=== PATIENT | male | born 1960 | race Caucasian/White ===

== ENCOUNTER 2021-08-19 12:13 | Emergency (ER) | payer OTHER ==
[~2021-08-19] VITALS: Ht 188 cm; Wt 108.9 kg
[2021-08-19 13:48] LABS: BASOPHILS ABSOLUTE AUTO 0.04 K/mm3 (0.00-0.23); BASOPHILS PERCENT AUTO 1 % (0-2); EOSINOPHILS ABSOLUTE AUTO 0.16 K/mm3 (0.00-0.68); EOSINOPHILS PERCENT AUTO 4 % (0-6); Hematocrit 42.9 % (37.0-53.0); Hemoglobin 14.9 g/dL (13.5-17.5); IMMATURE GRAN ABSOLUTE AUTO 0.01 K/mm3 (0.00-0.10); IMMATURE GRAN PERCENT AUTO 0 % (0-1); LYMPHOCYTES ABSOLUTE AUTO 1.43 K/mm3 (0.84-5.20); LYMPHOCYTES PERCENT AUTO 34 % (21-46); MONOCYTES ABSOLUTE AUTO 0.45 K/mm3 (0.16-1.47); MONOCYTES PERCENT AUTO 11 % (4-13); Mean Corpuscular HGB 32.8 pg (26.0-34.0); Mean Corpuscular HGB Conc 34.7 g/dL (31.5-36.5); Mean Corpuscular Volume 95 fL (80-100); Mean Platelet Volume 9.7 fL (9.1-12.4); NEUTROPHILS ABSOLUTE AUTO 2.14 K/mm3 (1.96-9.15); NEUTROPHILS PERCENT AUTO 51 % (41-73); Platelet Count 216 K/mm3 (150-400); RDW Standard Deviation 45.8 fL (35.1-46.3); Red Blood Cell Count 4.54 M/mm3 (4.30-5.90); White Blood Cell Count 4.23 K/mm3 (4.00-11.30)
[2021-08-19 14:09] LABS: Alanine Aminotransfer (ALT/SGP 38 U/L (12-78); Albumin/Globulin Ratio 0.6 (0.8-1.8); Alk Phos 77 U/L (50-136); Anion Gap 5 mmol/L (6-16); Aspartate Aminotrans (AST/SGOT 62 U/L (12-37); Bilirubin, Total 1.6 mg/dL (0.1-1.0); Blood Urea Nitrogen 8 mg/dL (8-24); CO2, Blood 25 mmol/L (21-32); Calcium, Blood 9.3 mg/dL (8.5-10.1); Chloride, Blood 109 mmol/L (98-108); Creatinine, Blood 0.67 mg/dL (0.60-1.20); Globulin, Blood 4.8 g/dL (2.2-4.0); Glomerular Filtration Rate >60 (60-); Glucose, Blood 107 mg/dL (70-99); Magnesium, Blood 2.1 mg/dL (1.6-2.4); Potassium, Blood 3.5 mmol/L (3.5-5.5); Sodium, Blood 139 mmol/L (136-145); Total Protein, Blood 7.8 g/dL (6.4-8.2)
[2021-08-19] MEDS ORDERED: XARELTO15 M1 PO (15:45)
== END 2021-08-19 15:58 | disposition home or self-care (01) ==
LOC: ER 12:13
PROVIDERS: Physician Assistant
DX: I82.4Z1 Acute embolism and thrombosis of unspecified deep veins of right distal lower extremity (principal); F17.200 Nicotine dependence, unspecified, uncomplicated
CPT/HCPCS: 80053; 83690; 83735; 83880; 85025; 93970; 99284-25

== ENCOUNTER 2021-09-18 17:03 | Emergency (ER) | payer OTHER ==
[~2021-09-18] VITALS: Ht 188 cm; Wt 108.9 kg
[~2021-09-18 17:03] MED LIST: ASPI81CH PO; XARELTO15 M1 PO; XARELTO20 MG PO
[2021-09-18 17:50] LABS: BASOPHILS ABSOLUTE AUTO 0.02 K/mm3 (0.00-0.23); BASOPHILS PERCENT AUTO 0 % (0-2); EOSINOPHILS PERCENT AUTO 1 % (0-6); Hematocrit 42.8 % (37.0-53.0); Hemoglobin 14.7 g/dL (13.5-17.5); IMMATURE GRAN ABSOLUTE AUTO 0.03 K/mm3 (0.00-0.10); IMMATURE GRAN PERCENT AUTO 0 % (0-1); LYMPHOCYTES ABSOLUTE AUTO 0.99 K/mm3 (0.84-5.20); LYMPHOCYTES PERCENT AUTO 12 % (21-46); MONOCYTES PERCENT AUTO 6 % (4-13); Mean Corpuscular HGB 32.3 pg (26.0-34.0); Mean Corpuscular HGB Conc 34.3 g/dL (31.5-36.5); Mean Corpuscular Volume 94 fL (80-100); Mean Platelet Volume 10.6 fL (9.1-12.4); NEUTROPHILS ABSOLUTE AUTO 6.57 K/mm3 (1.96-9.15); NEUTROPHILS PERCENT AUTO 80 % (41-73); Platelet Count 186 K/mm3 (150-400); RDW Coefficient Variation 13.3 % (11.7-14.2); RDW Standard Deviation 46.4 fL (35.1-46.3); Red Blood Cell Count 4.55 M/mm3 (4.30-5.90); White Blood Cell Count 8.21 K/mm3 (4.00-11.30)
[2021-09-18 18:02] LABS: Alanine Aminotransfer (ALT/SGP 36 U/L (12-78); Albumin, Blood 3.2 g/dL (3.4-5.0); Albumin/Globulin Ratio 0.7 (0.8-1.8); Alk Phos 141 U/L (50-136); Anion Gap 8 mmol/L (6-16); Aspartate Aminotrans (AST/SGOT 38 U/L (12-37); Bilirubin, Total 0.7 mg/dL (0.1-1.0); Blood Urea Nitrogen 15 mg/dL (8-24); Bun/Creatinine Ratio 24.2 (12.0-20.0); CO2, Blood 21 mmol/L (21-32); Calcium, Blood 9.5 mg/dL (8.5-10.1); Chloride, Blood 111 mmol/L (98-108); Creatinine, Blood 0.62 mg/dL (0.60-1.20); Globulin, Blood 4.5 g/dL (2.2-4.0); Glomerular Filtration Rate >60 (60-); Glucose, Blood 123 mg/dL (70-99); Potassium, Blood 3.5 mmol/L (3.5-5.5); Sodium, Blood 140 mmol/L (136-145); Total Protein, Blood 7.7 g/dL (6.4-8.2)
[2021-09-18 18:43] LABS: Ethanol (Alcohol), Blood, Med <3 mg/dL; Magnesium, Blood 1.9 mg/dL (1.6-2.4); Troponin I <0.015 ng/mL (0.000-0.040)
== END 2021-09-18 20:46 | disposition home or self-care (01) ==
LOC: ER 17:03
PROVIDERS: Emergency Medicine; Student in an Organized Health Care Education/Training Program
DX: K52.9 Noninfective gastroenteritis and colitis, unspecified (principal); Z88.8 Allergy status to other drugs, medicaments and biological substances; Z79.82 Long term (current) use of aspirin; Z79.899 Other long term (current) drug therapy; F17.200 Nicotine dependence, unspecified, uncomplicated
CPT/HCPCS: 74176; 80053; 83605; 83690; 83735; 84145; 84484; 85025; 93005; 93010; 96374; 96375; 99285-25; A9270; G0480; J1170; J2405; J7030

== ENCOUNTER 2023-03-12 20:34 | Inpatient (IN) | payer MEDICARE, OTHER ==
[~2023-03-12] VITALS: Ht 188 cm; Wt 146.7 kg
[2023-03-12] MEDS ORDERED: AMLO10 PO (20:58)
[2023-03-12] MEDS ORDERED: HYDCHL25 PO (20:59)
[2023-03-12 21:02] LABS: BASOPHILS ABSOLUTE AUTO 0.05 K/mm3 (0.00-0.23); BASOPHILS PERCENT AUTO 1 % (0-2); EOSINOPHILS ABSOLUTE AUTO 0.16 K/mm3 (0.00-0.68); EOSINOPHILS PERCENT AUTO 2 % (0-6); Hematocrit 44.3 % (37.0-53.0); Hemoglobin 15.8 g/dL (13.5-17.5); IMMATURE GRAN ABSOLUTE AUTO 0.02 K/mm3 (0.00-0.10); IMMATURE GRAN PERCENT AUTO 0 % (0-1); LYMPHOCYTES ABSOLUTE AUTO 3.25 K/mm3 (0.84-5.20); LYMPHOCYTES PERCENT AUTO 33 % (21-46); MONOCYTES ABSOLUTE AUTO 1.17 K/mm3 (0.16-1.47); MONOCYTES PERCENT AUTO 12 % (4-13); Mean Corpuscular HGB 31.4 pg (26.0-34.0); Mean Corpuscular HGB Conc 35.7 g/dL (31.5-36.5); Mean Corpuscular Volume 88 fL (80-100); Mean Platelet Volume 10.2 fL (9.1-12.4); NEUTROPHILS ABSOLUTE AUTO 5.08 K/mm3 (1.96-9.15); NEUTROPHILS PERCENT AUTO 52 % (41-73); Platelet Count 105 K/mm3 (150-400); RDW Coefficient Variation 13.7 % (11.7-14.2); RDW Standard Deviation 43.9 fL (35.1-46.3); Red Blood Cell Count 5.03 M/mm3 (4.30-5.90); White Blood Cell Count 9.73 K/mm3 (4.00-11.30)
[2023-03-12 21:14] LABS: Albumin, Blood 3.5 g/dL (3.4-5.0); Albumin/Globulin Ratio 0.9 (0.8-1.8); Bilirubin, Total 2.4 mg/dL (0.1-1.0); Bun/Creatinine Ratio 9.8 (12.0-20.0); Calcium, Blood 8.9 mg/dL (8.5-10.1); Creatinine, Blood 0.72 mg/dL (0.60-1.20); Potassium, Blood 3.4 mmol/L (3.5-5.5); Total Protein, Blood 7.5 g/dL (6.4-8.2)
[2023-03-13] VITALS (18 sets, daily range): BP systolic 106–168; BP diastolic 69–118
[2023-03-13 00:54] LABS: International Normalized Ratio 1.31; Prothrombin Time Results 13.5 Sec (9.7-11.5)
[2023-03-13 05:07] LABS: BASOPHILS ABSOLUTE AUTO 0.04 K/mm3 (0.00-0.23); BASOPHILS PERCENT AUTO 1 % (0-2); EOSINOPHILS ABSOLUTE AUTO 0.24 K/mm3 (0.00-0.68); EOSINOPHILS PERCENT AUTO 4 % (0-6); Hematocrit 43.6 % (37.0-53.0); Hemoglobin 15.3 g/dL (13.5-17.5); IMMATURE GRAN ABSOLUTE AUTO 0.01 K/mm3 (0.00-0.10); IMMATURE GRAN PERCENT AUTO 0 % (0-1); LYMPHOCYTES ABSOLUTE AUTO 2.61 K/mm3 (0.84-5.20); LYMPHOCYTES PERCENT AUTO 39 % (21-46); MONOCYTES ABSOLUTE AUTO 0.66 K/mm3 (0.16-1.47); MONOCYTES PERCENT AUTO 10 % (4-13); Mean Corpuscular HGB 31.1 pg (26.0-34.0); Mean Corpuscular HGB Conc 35.1 g/dL (31.5-36.5); Mean Corpuscular Volume 89 fL (80-100); Mean Platelet Volume 11.1 fL (9.1-12.4); NEUTROPHILS ABSOLUTE AUTO 3.15 K/mm3 (1.96-9.15); NEUTROPHILS PERCENT AUTO 47 % (41-73); Platelet Count 89 K/mm3 (150-400); RDW Coefficient Variation 13.8 % (11.7-14.2); RDW Standard Deviation 44.9 fL (35.1-46.3); Red Blood Cell Count 4.92 M/mm3 (4.30-5.90); White Blood Cell Count 6.71 K/mm3 (4.00-11.30)
[2023-03-13 05:37] LABS: Albumin, Blood 3.2 g/dL (3.4-5.0); Albumin/Globulin Ratio 0.8 (0.8-1.8); Bilirubin, Total 2.4 mg/dL (0.1-1.0); Bun/Creatinine Ratio 8.4 (12.0-20.0); Calcium, Blood 8.9 mg/dL (8.5-10.1); Creatinine, Blood 0.72 mg/dL (0.60-1.20); Globulin, Blood 3.8 g/dL (2.2-4.0); Potassium, Blood 3.4 mmol/L (3.5-5.5)
--- NOTE | 2023-03-13 07:02 | NUR ---
Received report from Garry Naylor. Patient awake in bed. He is alert and oriented and is able to communicate his needs. He is on 3L O2 via NC and sats >90% and has non prod. cough. He has 18ga PowerGlide to JOHNNA and is infusing Heparin at 18 u nits/kg/min, 18ga RENETTA infusing cardizem at 10 mg/hr, and 18ga LAC infuisng potassium at 10 meq/hr. He has RLE swelling r/t + DVT. He is SBA with pivots. Patient denies any current needs.
--- NOTE | 2023-03-13 07:15 | NUR ---
END OF SIHFT: PATIENT IS STILL ALERT AND ORIENTED, PATIENT IS NOW HAVING PE RELATED PAIN. WAS ABLE TO SLEEP AFTER ADMIN OF EMAR PAIN MED, CARDIZEM TITRATION FROM 15 TO 10 EARLY THIS AM. PATIENT IS PLEASAANT COOPERATIVE WITH CARE. HYPERTENSIVE AT TIMES, ABD IS VERY DISTENDED. ALL CONCERNS HAVE BEEN RELAYED TO NIGHT HOSPITALIST, CONTINUE CARE AND MONITOR NO NEW ORDERS. DAY RN AWARE AND WILL FOLLOW UP WITH HOSPITALIST.
--- NOTE | 2023-03-13 11:30 | NUR ---
Patient has been resting between 4 Dr visits and ECHO being done. He remains on 3L O2 via NC and sats >90%. He denies any SOB. Patient is independent with positioning in bed and calls appropriately, call light within reach. Urial at bedside calls if needs help. Right leg remians swollen. Heparin increased to 19 units/kg/min.
--- NOTE | 2023-03-13 13:55 | NUR ---
Patient arrived from [facility] from cardiac cath technician on tele. Patient is alert and oriented and is able to communicate his needs. getting CBG as probanly did not do during cath. He has TR band site right wrist and has 11cc in band and is WNL, no hematoma or oozing. Will call to see if patient can eat.
--- NOTE | 2023-03-13 15:56 | NUR ---
No significant changes with patient. He has been doing a pretty good job resting. heparin at 19 units/kg/min, Diltiazem at 5 mg/min as HR 50-60's A-fib. NS at 50 ml/hr. He remains on 3L O2 via NC and sats >90%. He states still not feeling well and breathing not right but sats around 98%. Positions self in bed, remains NPO.
--- NOTE | 2023-03-13 17:03 | NUR ---
Dr Vasquez came to consult patient and about 30 minutes later came to take to scope room. he has been sleeping up to then. He transferred to [facility] slowly hoding on to items while pivoting, very tremulous. he went on 5L O2 via NC and sats >90%. Infusing Heparin at 19 units/kg/min, Diltiazem at 5mg/hr and NS at 50 ml/hr, went on tele
--- NOTE | 2023-03-13 17:09 | NUR ---
03/13/23 1701 Tayler Olivares History, Chart, Medications and Allergies reviewed before start of procedure. MONITOR INTACT WITH CONTINUOUS PULSE OXIMETRY, CONTINUOUS END TITAL CO2, AND INTERMITTENT BLOOD PRESSURE. 3-LEAD EKG REVIEWED WITH PHYSICIAN PRIOR TO START OF PROCEDURE. O2 VIA N/C INTACT THROUGHOUT SEDATION/PROCEDURE. DR. BOWIE FOR SEDATION, SEE HIS ANESTHESIA RECORD.
[2023-03-14] VITALS (7 sets, daily range): BP systolic 130–170; BP diastolic 72–119
[2023-03-14 03:28] LABS: BASOPHILS ABSOLUTE AUTO 0.03 K/mm3 (0.00-0.23); BASOPHILS PERCENT AUTO 1 % (0-2); EOSINOPHILS ABSOLUTE AUTO 0.28 K/mm3 (0.00-0.68); EOSINOPHILS PERCENT AUTO 5 % (0-6); Hematocrit 42.4 % (37.0-53.0); Hemoglobin 14.6 g/dL (13.5-17.5); IMMATURE GRAN PERCENT AUTO 0 % (0-1); LYMPHOCYTES ABSOLUTE AUTO 2.01 K/mm3 (0.84-5.20); LYMPHOCYTES PERCENT AUTO 33 % (21-46); MONOCYTES ABSOLUTE AUTO 0.52 K/mm3 (0.16-1.47); MONOCYTES PERCENT AUTO 8 % (4-13); Mean Corpuscular HGB 31.5 pg (26.0-34.0); Mean Corpuscular HGB Conc 34.4 g/dL (31.5-36.5); Mean Corpuscular Volume 92 fL (80-100); Mean Platelet Volume 11.1 fL (9.1-12.4); NEUTROPHILS ABSOLUTE AUTO 3.35 K/mm3 (1.96-9.15); NEUTROPHILS PERCENT AUTO 54 % (41-73); Platelet Count 82 K/mm3 (150-400); RDW Coefficient Variation 14.4 % (11.7-14.2); Red Blood Cell Count 4.63 M/mm3 (4.30-5.90); White Blood Cell Count 6.19 K/mm3 (4.00-11.30)
[2023-03-14 04:07] LABS: Albumin, Blood 2.9 g/dL (3.4-5.0); Albumin/Globulin Ratio 0.8 (0.8-1.8); Bilirubin, Total 2.1 mg/dL (0.1-1.0); Bun/Creatinine Ratio 10.9 (12.0-20.0); Calcium, Blood 8.5 mg/dL (8.5-10.1); Creatinine, Blood 0.74 mg/dL (0.60-1.20); Globulin, Blood 3.7 g/dL (2.2-4.0); Magnesium, Blood 1.9 mg/dL (1.6-2.4); Phosphorus, Blood 2.3 mg/dL (2.5-4.9); Potassium, Blood 3.8 mmol/L (3.5-5.5); Total Protein, Blood 6.6 g/dL (6.4-8.2)
--- NOTE | 2023-03-14 06:27 | NUR ---
SHIFT SUMMARY: NO ACUTE CHANGE THIS SHIFT, VSS THROUGHOUT THE NIGHT. HEPARIN GTT @ 19 UNITS/KG, CARDIZEM GTT ON SB FOR THE MAJORITY OF THE NIGHT. PT REMAINS AFIB ON MONITOR WITH HR 80-90'S. PT ON NC @ 5LPM WITH SPO2 94<; NO SOB OR CHEST PAIN AT THIS TIME. R. LEG MAINTAINS COLOR, TEMP AND PULSE. PT HAS HAD SOME PAIN WITH THE RIGHT LEG BUT MEDICATED PER EMAR AND PAIN MANAGEMENT MET. PT ABLE TO SLEEP FOR A WHILE AFTER PAIN MANAGED. BED LOWERED, CALL LIGHT IN REACH, WILL CONTINUE TO MONITOR UNTIL ONCOMING RN ARRIVES.
--- NOTE | 2023-03-14 11:36 | NUR ---
RN/SHIFT SUMMARY MORNING SHIFT REPORT RECIEVED. PATIENT GREETED AND ASSESSED WITH MEDICATION PASS. THE PATIENT HAS BEEN IN GOOD GENERAL MENTATION THROUGHT THE MORNING WITH NO COMPLICATIONS. HE ALERT ON 4L NC AND READY FOR TRANSFER. REPORT GIVEN TO RN PRIOR TO MEDICAL FLOOR TRANSFER. ALL BELONGINGS ARE TRANSPORTED ALONG WITH HEP DRIP AND INFUSION SET.
--- NOTE | 2023-03-14 18:21 | NUR ---
SHIFT SUMMARY: PT A&O X4. PT VERY PLEASANT AND COOPERATIVE WITH CARE. HEPARIN DRIP RUNNING UNTIL 2100 WHEN HE WILL SWITCH TO PO XARELTO. PT HAS PG IN RIGHT UPPER ARM FLUSHING WELL. PT INDEPENDENT IN ROOM. PT USING URINAL FOR VOIDS AND URINATING ORANGE URINE. PT ON TELE RUNNING AFIB PVC. NO C/O PAIN OR N/V. CALL LIGHT IN REACH. BED IN LOWEST POSITION. WILL CONTINUE TO MONITOR.
--- NOTE | 2023-03-14 21:26 | NUR ---
HEPARIN DRIP DISCONTINUED, PLACED ON XARELTO. SEE MAR FOR DETAILS. TOLERATING MEDS WITHOUT NOTED DISTRESS. RESTING QUIETLY AT THIS TIME
[2023-03-15 03:55] VITALS: BP 140/106
--- NOTE | 2023-03-15 06:48 | NUR ---
TELE NOTE. SENIOR SOFTWARE SYSTEMS ENGINEER CALLED TO REPORT INTERMITTENT EPISODES OF A FIB AND SR SINCE 0400 AM. PT REMAINS ASYMPTOMATIC. NO NOTED DISTRESS. SENIOR SOFTWARE SYSTEMS ENGINEER REPORTS THAT THEY WILL CALL BACK IF CONTINUES. WILL HAVE AM NURSE FOLLOW UP. CALL LIGHT IN REACH
[2023-03-15 07:25] LABS: BASOPHILS ABSOLUTE AUTO 0.02 K/mm3 (0.00-0.23); BASOPHILS PERCENT AUTO 0 % (0-2); EOSINOPHILS ABSOLUTE AUTO 0.32 K/mm3 (0.00-0.68); EOSINOPHILS PERCENT AUTO 5 % (0-6); Hematocrit 43.2 % (37.0-53.0); Hemoglobin 14.8 g/dL (13.5-17.5); IMMATURE GRAN ABSOLUTE AUTO 0.01 K/mm3 (0.00-0.10); IMMATURE GRAN PERCENT AUTO 0 % (0-1); LYMPHOCYTES ABSOLUTE AUTO 2.12 K/mm3 (0.84-5.20); LYMPHOCYTES PERCENT AUTO 34 % (21-46); MONOCYTES PERCENT AUTO 11 % (4-13); Mean Corpuscular HGB 31.2 pg (26.0-34.0); Mean Corpuscular HGB Conc 34.3 g/dL (31.5-36.5); Mean Corpuscular Volume 91 fL (80-100); Mean Platelet Volume 10.8 fL (9.1-12.4); NEUTROPHILS ABSOLUTE AUTO 3.11 K/mm3 (1.96-9.15); NEUTROPHILS PERCENT AUTO 50 % (41-73); Platelet Count 94 K/mm3 (150-400); RDW Coefficient Variation 13.8 % (11.7-14.2); RDW Standard Deviation 46.6 fL (35.1-46.3); Red Blood Cell Count 4.74 M/mm3 (4.30-5.90); White Blood Cell Count 6.28 K/mm3 (4.00-11.30)
[2023-03-15 07:39] VITALS: BP 133/88
[2023-03-15 07:40] LABS: Albumin, Blood 2.8 g/dL (3.4-5.0); Albumin/Globulin Ratio 0.8 (0.8-1.8); Bilirubin, Total 1.5 mg/dL (0.1-1.0); Calcium, Blood 8.9 mg/dL (8.5-10.1); Creatinine, Blood 0.69 mg/dL (0.60-1.20); Globulin, Blood 3.7 g/dL (2.2-4.0); Magnesium, Blood 1.9 mg/dL (1.6-2.4); Phosphorus, Blood 3.1 mg/dL (2.5-4.9); Potassium, Blood 3.9 mmol/L (3.5-5.5); Total Protein, Blood 6.5 g/dL (6.4-8.2)
[2023-03-15 12:24] VITALS: BP 121/89
[2023-03-15] MEDS ORDERED: DILT120 PO (15:09)
[2023-03-15] MEDS ORDERED: Inderal 20 mg T20 MG PO (15:10)
[2023-03-15] MEDS ORDERED: OMEP20ER PO (15:10)
[2023-03-15] MEDS ORDERED: XARELTO20 MG PO (15:16)
--- NOTE | 2023-03-15 19:43 | NUR ---
PT DC'D APPROX 1530 WITH DC INSTRUCTIONS- STAFF ESCORT OUT TO [place], HOSP PAY, FOR RIDE HOME.
== END 2023-03-15 17:10 | disposition home or self-care (01) | DRG 299 ==
LOC: ER 20:34 → PCU 20:35 → ER 20:35 → PCU 03-13 01:48 → MEDS 03-14 11:31 → ENPENDDIS 03-15 13:46 → MEDS 03-15 17:10
PROVIDERS: Emergency Medicine; Family Medicine; Internal Medicine Gastroenterology; ADMIT Internal Medicine
PROC: 0DJ08ZZ Inspection of Upper Intestinal Tract, Via Natural or Artificial Opening Endoscopic (ICD-10-PCS; principal; 2023-03-13 17:15)
DX: I82.431 Acute embolism and thrombosis of right popliteal vein (principal); I26.99 Other pulmonary embolism without acute cor pulmonale; I85.10 Secondary esophageal varices without bleeding; Z68.41 Body mass index [BMI] 40.0-44.9, adult; K74.60 Unspecified cirrhosis of liver; Z91.148 Patient's other noncompliance with medication regimen for other reason; K26.9 Duodenal ulcer, unspecified as acute or chronic, without hemorrhage or perforation; K76.0 Fatty (change of) liver, not elsewhere classified; I86.4 Gastric varices; E87.6 Hypokalemia; D69.6 Thrombocytopenia, unspecified; E66.9 Obesity, unspecified; I10 Essential (primary) hypertension; E83.39 Other disorders of phosphorus metabolism; F10.10 Alcohol abuse, uncomplicated; I48.91 Unspecified atrial fibrillation; F17.210 Nicotine dependence, cigarettes, uncomplicated; Z88.8 Allergy status to other drugs, medicaments and biological substances; Z79.01 Long term (current) use of anticoagulants; Z79.82 Long term (current) use of aspirin; Z79.899 Other long term (current) drug therapy
CPT/HCPCS: 36415; 71045; 71260; 80053; 82947; 83735; 83880; 84100; 85025; 85610; 85730; 93005; 93010; 93306; 93971; 94761; 96361; 96365-59; 96375-59; 96376; 96376-59; 99285-25; A9270; C1751; G0378; J1644; J2704; J3010; J3480; J7030; J7050; J7120; Q9967

== ENCOUNTER 2023-04-08 18:13 | Emergency (ER) | payer MEDICARE ==
[~2023-04-08] VITALS: Ht 188 cm; Wt 136.1 kg
[~2023-04-08 18:13] MED LIST changes: +AMLO10 PO; +DILT120 PO; +HYDCHL25 PO; +Inderal 20 mg T20 MG PO; +OMEP20ER PO
[2023-04-08 18:55] LABS: BASOPHILS ABSOLUTE AUTO 0.05 K/mm3 (0.00-0.23); BASOPHILS PERCENT AUTO 1 % (0-2); EOSINOPHILS ABSOLUTE AUTO 0.39 K/mm3 (0.00-0.68); EOSINOPHILS PERCENT AUTO 5 % (0-6); Hematocrit 42.2 % (37.0-53.0); Hemoglobin 14.7 g/dL (13.5-17.5); IMMATURE GRAN ABSOLUTE AUTO 0.01 K/mm3 (0.00-0.10); IMMATURE GRAN PERCENT AUTO 0 % (0-1); LYMPHOCYTES ABSOLUTE AUTO 3.43 K/mm3 (0.84-5.20); LYMPHOCYTES PERCENT AUTO 47 % (21-46); MONOCYTES ABSOLUTE AUTO 0.75 K/mm3 (0.16-1.47); MONOCYTES PERCENT AUTO 10 % (4-13); Mean Corpuscular HGB 31.4 pg (26.0-34.0); Mean Corpuscular HGB Conc 34.8 g/dL (31.5-36.5); Mean Corpuscular Volume 90 fL (80-100); Mean Platelet Volume 9.2 fL (9.1-12.4); NEUTROPHILS ABSOLUTE AUTO 2.62 K/mm3 (1.96-9.15); NEUTROPHILS PERCENT AUTO 36 % (41-73); Platelet Count 243 K/mm3 (150-400); RDW Coefficient Variation 13.7 % (11.7-14.2); RDW Standard Deviation 45.6 fL (35.1-46.3); Red Blood Cell Count 4.68 M/mm3 (4.30-5.90); White Blood Cell Count 7.25 K/mm3 (4.00-11.30)
[2023-04-08 19:17] LABS: Albumin, Blood 3.4 g/dL (3.4-5.0); Albumin/Globulin Ratio 0.8 (0.8-1.8); Bilirubin, Total 0.5 mg/dL (0.1-1.0); Calcium, Blood 9.1 mg/dL (8.5-10.1); Creatinine, Blood 0.69 mg/dL (0.60-1.20); Globulin, Blood 4.1 g/dL (2.2-4.0); Total Protein, Blood 7.5 g/dL (6.4-8.2)
[2023-04-08 22:00] VITALS: BP 136/86
== END 2023-04-08 22:12 | disposition home or self-care (01) ==
LOC: ER 18:13
PROVIDERS: Emergency Medicine
DX: I82.411 Acute embolism and thrombosis of right femoral vein (principal); I82.431 Acute embolism and thrombosis of right popliteal vein; I82.441 Acute embolism and thrombosis of right tibial vein; I82.451 Acute embolism and thrombosis of right peroneal vein; Z87.891 Personal history of nicotine dependence; Z88.8 Allergy status to other drugs, medicaments and biological substances; Z79.899 Other long term (current) drug therapy
CPT/HCPCS: 71045; 80053; 83880; 84484; 85025; 93005; 93010; 93971; A9270

== ENCOUNTER 2024-04-14 20:02 | Inpatient (IN) | payer OTHER, MEDICARE ==
[~2024-04-14] VITALS: Ht 190.5 cm; Wt 119.0 kg
[~2024-04-14 20:02] MED LIST changes: +CYCL10 PO; +FURO40 PO; +JARDIANCE10 MG PO; +METO100ER PO; +SILD50TA PO
[2024-04-14] MEDS ORDERED: LORazepam 2 MG/ML 1ML Injection ONE ×2 (20:08→22:41)
[2024-04-14] MEDS ORDERED: LORazepam 2 MG/ML 1ML Injection IV ONE (20:15)
[2024-04-14] MEDS ORDERED: Metoprolol Tartrate 5 ML IV ONE (20:16)
[2024-04-14] MEDS ORDERED: Haloperidol Lactate Inj. 5 MG/ML Injection IM PRN (20:20)
[2024-04-14] MEDS ORDERED: Metoprolol Tartrate 1 MG/ML 5 ML VIAL IV ONE (20:20)
[2024-04-14 20:22] LABS: BASOPHILS ABSOLUTE AUTO 0.05 K/mm3 (0.00-0.23); BASOPHILS PERCENT AUTO 1 % (0-2); EOSINOPHILS ABSOLUTE AUTO 0.18 K/mm3 (0.00-0.68); EOSINOPHILS PERCENT AUTO 3 % (0-6); Hematocrit 43.8 % (37.0-53.0); Hemoglobin 14.8 g/dL (13.5-17.5); IMMATURE GRAN ABSOLUTE AUTO 0.01 K/mm3 (0.00-0.10); IMMATURE GRAN PERCENT AUTO 0 % (0-1); LYMPHOCYTES ABSOLUTE AUTO 3.06 K/mm3 (0.84-5.20); LYMPHOCYTES PERCENT AUTO 46 % (21-46); MONOCYTES ABSOLUTE AUTO 0.75 K/mm3 (0.16-1.47); MONOCYTES PERCENT AUTO 11 % (4-13); Mean Corpuscular HGB 32.9 pg (26.0-34.0); Mean Corpuscular HGB Conc 33.8 g/dL (31.5-36.5); Mean Corpuscular Volume 97 fL (80-100); NEUTROPHILS ABSOLUTE AUTO 2.61 K/mm3 (1.96-9.15); NEUTROPHILS PERCENT AUTO 39 % (41-73); Platelet Count 145 K/mm3 (150-400); RDW Coefficient Variation 15.4 % (11.7-14.2); RDW Standard Deviation 55.9 fL (35.1-46.3); White Blood Cell Count 6.66 K/mm3 (4.00-11.30)
[2024-04-14 20:36] LABS: Prothrombin Time Results 10.7 Sec (9.7-11.5)
[2024-04-14 20:44] LABS: Albumin, Blood 3.6 g/dL (3.4-5.0); Albumin/Globulin Ratio 0.9 (0.8-1.8); Bilirubin, Total 1.1 mg/dL (0.1-1.0); Bun/Creatinine Ratio 8.9 (12.0-20.0); Calcium, Blood 8.3 mg/dL (8.5-10.1); Creatinine, Blood 0.89 mg/dL (0.60-1.20); Globulin, Blood 4.1 g/dL (2.2-4.0); Potassium, Blood 3.8 mmol/L (3.5-5.5); Total Protein, Blood 7.7 g/dL (6.4-8.2)
[2024-04-14] MEDS ORDERED: Digoxin 0.25 MG/ML 2ML Amp IV ONE (22:45)
[2024-04-14] MEDS ORDERED: Acetaminophen 325 MG TABLET PO PRN (23:45)
[2024-04-14] MEDS ORDERED: Ondansetron HCl 2 MG / ML 2ML Vial IV PRN (23:55)
[2024-04-14] MEDS ORDERED: Magnesium Hydroxide Conc 10 ML UDC PO PRN (23:55)
[2024-04-15] VITALS (12 sets, daily range): BP systolic 100–153; BP diastolic 70–134
[2024-04-15] MEDS ORDERED: LORazepam 2 MG/ML 1ML Injection IV PRN ×3 (00:55→12:35)
[2024-04-15] MEDS ORDERED: LORazepam 1 MG Tab PO PRN ×2 (00:55)
--- NOTE | 2024-04-15 01:24 | NUR ---
ARRIVAL/ASSUMPTION OF CARE THIS RN ASSUMED CARE OF PT AT 0048 WHEN PT ARRIVED TO PCU. REPORT FROM MARIN PRITCHARD. PT ARRIVED VIA ER GURNEY. TRANSFERRED VIA SLIDE SHEET. PT MINIMALLY RESPONSIVE D/T AMS. PT MUMBLING WHEN ASKED ORIENTATION QUESTIONS BUT UNABLE TO MAKE OUT COHERENT, CLEAR SENTENCES. PT BRIEFLY OPENED EYES TO VERBAL STIMUL. PUPILS +2 AND EQUAL, NOT RESPONSIVE TO LIGHT OR ACCOMODATION. VS; BP 122/88, AFIB WITH RATE OF 130, TEMP 97.1, RR 20, SPO2 98% ON 5 LPM NC, THIS RN TITRATED TO 3 LPM WITH SPO2 95-97%. PT DOES NOT APPEAR TO BE IN CARDIAC OR RESPIRATORY DISTRESS. PT PROTECTING HIS OWN AIRWAY AT THIS TIME, LOUD SNORING NOTED AT TIMES. LS DIMINISHED T/O. BT PRESENT BUT HYPOACTIVE. PT SATURATED UPON ARRIVAL; BED BATH, LINEN AND GOWN CHANGE. CONDOM CATHETER AND ATTENDS IN PLACE. PT'S SKIN OVERALL INTACT WITH SCATTERED SCABS AND BRUISING T/O. PT WITH SMALL CUT AND BRUISE TO L EYE. PT WITH MODERATELY SIZED ROUND LESION TO UPPER R CHEST - PICTURES IN CHART. PT MADE COMFORTABLE, 1:1 SITTER PRESENT. PT FOUND WITH 2 LIGHTERS IN POCKET, PLACED IN LOCKED DRAWER.
[2024-04-15] MEDS ORDERED: Metoprolol Tartrate 1 MG/ML 5 ML VIAL IV ONE (03:35)
[2024-04-15 03:59] LABS: BASOPHILS ABSOLUTE AUTO 0.04 K/mm3 (0.00-0.23); BASOPHILS PERCENT AUTO 1 % (0-2); EOSINOPHILS ABSOLUTE AUTO 0.11 K/mm3 (0.00-0.68); EOSINOPHILS PERCENT AUTO 2 % (0-6); Hematocrit 41.5 % (37.0-53.0); Hemoglobin 14.2 g/dL (13.5-17.5); IMMATURE GRAN PERCENT AUTO 0 % (0-1); LYMPHOCYTES ABSOLUTE AUTO 1.79 K/mm3 (0.84-5.20); LYMPHOCYTES PERCENT AUTO 36 % (21-46); MONOCYTES ABSOLUTE AUTO 0.56 K/mm3 (0.16-1.47); MONOCYTES PERCENT AUTO 11 % (4-13); Mean Corpuscular HGB 33.1 pg (26.0-34.0); Mean Corpuscular HGB Conc 34.2 g/dL (31.5-36.5); Mean Corpuscular Volume 97 fL (80-100); Mean Platelet Volume 10.1 fL (9.1-12.4); NEUTROPHILS ABSOLUTE AUTO 2.52 K/mm3 (1.96-9.15); NEUTROPHILS PERCENT AUTO 50 % (41-73); Platelet Count 107 K/mm3 (150-400); RDW Coefficient Variation 15.5 % (11.7-14.2); RDW Standard Deviation 55.5 fL (35.1-46.3); Red Blood Cell Count 4.29 M/mm3 (4.30-5.90); White Blood Cell Count 5.02 K/mm3 (4.00-11.30)
[2024-04-15 04:23] LABS: Albumin, Blood 3.3 g/dL (3.4-5.0); Albumin/Globulin Ratio 0.8 (0.8-1.8); Bilirubin, Total 1.2 mg/dL (0.1-1.0); Bun/Creatinine Ratio 10.4 (12.0-20.0); Calcium, Blood 8.3 mg/dL (8.5-10.1); Creatinine, Blood 0.67 mg/dL (0.60-1.20); Globulin, Blood 4.1 g/dL (2.2-4.0); Potassium, Blood 3.9 mmol/L (3.5-5.5); Total Protein, Blood 7.4 g/dL (6.4-8.2)
[2024-04-15] MEDS ORDERED: Digoxin 0.25 MG/ML 2ML Amp IV ONE (04:30)
[2024-04-15] MEDS ORDERED: Digoxin 0.25 MG/ML 2ML Amp IV SCH (04:30)
--- NOTE | 2024-04-15 06:22 | NUR ---
SHIFT SUMMARY PT OBTUNDED, Q4 NEURO CHECKS REMAIN UNCHANGED. PT DID BRIEFLY AWAKEN AROUND 0515; PT WAS RESTLESS, AGITATED AT THIS TIME - CIWA 10. MEDICATION PER MAR GIVEN. VSS; SBP 100 - 120'S, AFIB WITH RATE 80 - 120'S, HR INCREASING TO 140 - 150'S WITH ACTIVITY (MOVING IN BED), AFEBRILE, RR 20'S, ON 3 LPM NC WITH SPO2 94-98%. PT DOES OCCASSIONAL DESAT INTO 80'S WHILE ASLEEP, LOUD SNORING NOTED AT TIMES. LUNG SOUNDS DIMINISHED T/O. CONDOM CATHETER AND ATTENDS IN PLACE. NO BM. PT RECEIVED BED BATH AT ARRIVAL TO PCU. REPOSITIONED Q2 OR PRN. 1:1 SITTER IN ROOM. CALL LIGHT IN REACH, BUT UNABLE TO VERBALIZE NEEDS AT THIS TIME. *WHEN PT STARTED TO WAKE UP, HE WAS ABLE TO STATE NAME, , AND THAT HE WAS AT THE HOSPITAL. PT STATES "HE FELL AT HOME". PT ABLE TO FOLLOW SOME COMMANDS, PT OPENED HIS EYES BRIEFLY AND WAS TRACKING AROUND THE ROOM. PT STATES HIS RIBS "HURT" AND STATES HE DOESN'T FELL WELL. OTHERWISE PT SLEPT T/O. WILL UPDATE ONCOMING RN
--- NOTE | 2024-04-15 07:39 | NUR ---
ASSUMED CARE PT AWAKE AND ALERT. ANSWERING ORIENTATION QUESTIONS APPROPRIATELY. VS STABLE. 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 PT REPORTS HE HAS BEEN FALLING FREQUENTLY AT HOME. PT ORIENTED TO CALL LIGHT AND EDUCATED TO CALL BEFORE GETTING OUT OF BED. HR AFIB 110'S AT THIS TIME, BUT TACHS UP TO 140-150'S BRIEFLY AND THEN COMES BACK DOWN WITHIN MINUTES. PT DENIES ANY PAIN. O2 SATS >90% ON 3L NC. PT REPORTS SOB BEFORE ARRIVAL TO ER THAT HAS IMPROVED. PT IS RESTLESS THIS AM, PULLING AT GOWN AND LINES, BUT IS REDIRECTABLE. PT IS VISIBLY SWEATING AND PROVIDED A FAN. WILL CONTINUE TO MONITOR CLOSELY. 1:1 SITTER AT BEDSIDE FOR SAFETY AND HIGH FALL RISK
[2024-04-15] MEDS ORDERED: Sodium Chloride 0.45% 1,000 ML IV SCH (08:10)
[2024-04-15] MEDS ORDERED: Folic Acid 1 MG in NS 50 ML IV SCH (09:00)
[2024-04-15] MEDS ORDERED: Metoprolol Succinate 50 MG TABCR PO SCH ×2 (09:00→21:00)
[2024-04-15] MEDS ORDERED: Empagliflozin 10 MG TAB PO SCH (09:00)
[2024-04-15] MEDS ORDERED: Enoxaparin 40 MG/0.4 ML SYR SC SCH (09:00)
[2024-04-15] MEDS ORDERED: Docusate Sodium 100 MG Cap PO SCH (09:00)
[2024-04-15] MEDS ORDERED: Thiamine HCl 100 MG in NS 50 ML IV SCH (09:00)
[2024-04-15] MEDS ORDERED: LIDO700A20 TOP (09:50)
--- NOTE | 2024-04-15 10:42 | NUR ---
UPDATE PATIENT RESTLESS AND CONTINUING TO GET OUT OF BED. PT SWEATY AND SENSITIVE TO LIGHT. PT CONTINUALLY PULLING AT LINES WITH FREQUENT REDIRECTION. PT MEDICATED PER EMAR. WILL CONTINUE TO MONITOR CLOSELY. 1:1 SITTER AT BEDSIDE
[2024-04-15] MEDS ORDERED: ChlordiazePOXIDE 25 MG Cap PO PRN (12:35)
[2024-04-15] MEDS ORDERED: Gabapentin 300 MG Cap PO SCH (14:00)
--- NOTE | 2024-04-15 17:10 | NUR ---
SHIFT SUMMARY PT CONTINUES TO BE RESTLESS MOST OF SHIFT. PULLING AT LINES AND O2 TUBING. PT DIFFICULT TO REDIRECT. 1:1 SITTER AT BEDSIDE ALL SHIFT. SEE ETOH WD CHARTING. PT MEDICATED PER EMAR FOR WITHDRAWAL. HR HAS BEEN AFIB 100'S AT REST, BUT UP TO 140'S WITH RESTLESSNESS AT TIMES. O2 SATS HAVE BEEN ABOVE 90% ON 4L NC. PT COMPLAINS OF PAIN IN HIS BACK AT TIMES THAT IS RELIEVED WITH REPOSITIONING. WILL CONTINUE TO MONITOR AND REPORT TO ONCOMING RN
[2024-04-15] MEDS ORDERED: Rivaroxaban 10 MG Tab PO SCH (18:00)
[2024-04-15] MEDS ORDERED: Metoprolol Tartrate 1 MG/ML 5 ML VIAL IV PRN ×2 (20:25→20:40)
[2024-04-15 20:43] LABS: Base Excess Venous -1.6 mmol/L; Bicarbonate Venous 24.2 mmol/L (24.0-30.0); PCO2 Venous 28.3 mmHg (38-42); pH Blood Venous 7.49 (7.34-7.37)
[2024-04-15 21:22] LABS: BASOPHILS ABSOLUTE AUTO 0.04 K/mm3 (0.00-0.23); BASOPHILS PERCENT AUTO 1 % (0-2); EOSINOPHILS ABSOLUTE AUTO 0.09 K/mm3 (0.00-0.68); EOSINOPHILS PERCENT AUTO 2 % (0-6); Hematocrit 42.2 % (37.0-53.0); Hemoglobin 14.5 g/dL (13.5-17.5); IMMATURE GRAN ABSOLUTE AUTO 0.01 K/mm3 (0.00-0.10); IMMATURE GRAN PERCENT AUTO 0 % (0-1); LYMPHOCYTES ABSOLUTE AUTO 1.21 K/mm3 (0.84-5.20); LYMPHOCYTES PERCENT AUTO 20 % (21-46); MONOCYTES ABSOLUTE AUTO 0.67 K/mm3 (0.16-1.47); MONOCYTES PERCENT AUTO 11 % (4-13); Mean Corpuscular HGB Conc 34.4 g/dL (31.5-36.5); Mean Corpuscular Volume 96 fL (80-100); Mean Platelet Volume 10.2 fL (9.1-12.4); NEUTROPHILS ABSOLUTE AUTO 3.95 K/mm3 (1.96-9.15); NEUTROPHILS PERCENT AUTO 66 % (41-73); Platelet Count 112 K/mm3 (150-400); RDW Coefficient Variation 14.8 % (11.7-14.2); RDW Standard Deviation 53.1 fL (35.1-46.3); Red Blood Cell Count 4.39 M/mm3 (4.30-5.90); White Blood Cell Count 5.97 K/mm3 (4.00-11.30)
[2024-04-15 21:44] LABS: Albumin, Blood 3.4 g/dL (3.4-5.0); Anion Gap 15 mmol/L (3-11); Blood Urea Nitrogen 7 mg/dL (8-24); Bun/Creatinine Ratio 10.2 (12.0-20.0); CO2, Blood 21 mmol/L (21-32); Calcium, Blood 8.5 mg/dL (8.5-10.1); Chloride, Blood 110 mmol/L (98-108); Creatinine, Blood 0.69 mg/dL (0.60-1.20); Glomerular Filtration Rate 103 (60-); Glucose, Blood 88 mg/dL (70-99); Phosphorus, Blood 2.1 mg/dL (2.5-4.9); Potassium, Blood 4.1 mmol/L (3.5-5.5); Sodium, Blood 142 mmol/L (136-145)
[2024-04-15] MEDS ORDERED: Haloperidol Lactate Inj. 5 MG/ML Injection IV PRN (22:40)
[2024-04-16] VITALS (85 sets, daily range): BP systolic 64–170; BP diastolic 49–136
[2024-04-16 00:10] LABS: Magnesium, Blood 1.6 mg/dL (1.6-2.4)
[2024-04-16] MEDS ORDERED: Mag Sulfate 1 GM/D5% 100ML 100 ML IV STA (00:39)
[2024-04-16 02:13] LABS: pH Blood Venous 7.48 (7.34-7.37)
[2024-04-16 02:14] LABS: Base Excess Venous -1.5 mmol/L; Bicarbonate Venous 24.1 mmol/L (24.0-30.0); PCO2 Venous 29.7 mmHg (38-42)
--- NOTE | 2024-04-16 02:14 | NUR ---
ASSUMPTION OF CARE/TRANSFER, SUMMARY NOTE THIS RN ASSUMED CARE OF PT AT 1900, REPORT FROM CARMELINA FUNES. PT AGITATED AND RESTLESS AT START OF SHIFT, NOT DIRECTABLE. PT ALERT BUT ORIENTED X 1-2 TO SELF AND PERSON. PT STATES WE ARE IN [place] 1969. PT REORIENTED, UNABLE TO REPEAT INFORMATION BACK WHEN ASKED AGAIN. PT NOT OPENING EYES SPONTANEOUSLY; OPENS EYES BRIEFLY TO PRESSURE AND STERNAL RUB, REPSONSES MUMBLED/SOUNDS. PUPILS +2, VERY SLUGGISH. PT NOT FOLLOWING COMMANDS. VS; SBP 130 - 150, DBP 90 - 100'S, AFIB WITH RATE IN 100 - 130'S AT REST, HR INCREASES TO 180-190'S WITH ACTIVITY, RR 20 - 40, WOB INCREASED, LOUD SNORING NOTED. PT UNABLE TO STATE IF SYMPTOMATIC WITH INCREASED HR, HOWEVER THIS RN NOTES PT IS DIAPHORETIC, PALLOR IN COLOR, RESTLESS, AND SOB. PT ON 3 LPM NC, SPO2 GREATER THAN 94%. CIWA 12-18; MEDICATION PER MAR WITH LITTLE TO NO EFFECT. GUMMED TAPE PRESS OPERATOR CALLED HOSPITALIST; NEW ORDERS FOR IV HALDOL PER EMAR. ADMINISTERED WITH LITTLE EFFECT. PT CONTINUED TO BE AGITATED, RESTLESS, AND ANXIOUS; PULLING AT CORDS, LINES AND IV. 1:1 SITTER IN ROOM. THIS RN IN ROOM MOST OF THE SHIFT. THIS RN CALLED RESIDENT SEVERAL TIMES ABOUT PT CONDITION; NEW LAB ORDERS, MEDICAITON PER MAR (SEE ORDERS). BNP 339, NO NEW ORDERS FOR THIS. PT CONTINUES, HR CONTINUES TO MAINTAIN 130 - 160'S, RR CONTINUED TO INCREASE. THIS RN CALLED HOSPITALIST WHICH CAME TO BEDSIDE TO SEE PT. NEW ORDERS FOR CXR, REPEAT VBG AND TRANSFER TO ICU. PT TRANSFERRED TO ICU ON 3 LPM NC, PT STILL AGITATED, RESTLESS AT THIS AND UNDIRECTABLE ALTHOUGH PT IS PLEASANT, NOT VIOLENT OR AGGRESSIVE. PT BELONGINGS WITH PT. REPORT TO MARIN CINTRON .
--- NOTE | 2024-04-16 02:31 | NUR ---
ASSUMED PT TO ICU 1 AT 0215. PT IS AWAKE BUT THRASHING IN BED, RESTLESS, RESPONDS TO NAME AND ASKS FOR WATER HOWEVER COULD NOT SAY WHERE HE WAS OR WHY. PT DOES SAY HE NEEDS TO PEE. HE URINATED 300CC YELLOW URINE. HE WAS GIVEN LIBRIUM 50MG PO AND SIPPED WATER WITH A STRAW EASILY. PT ALSO WAS GIVEN 4MG OF ATIVAN IV CIWA 22. SITTER AT BEDSIDE AIDING IN CARE. VS. PULSE 125-130 AFIB RVR, BP 164/88 MAP 107, RR 22-30. SPO2 97%. ON 3L NC. MAGNESIUM 1GM GIVEN IV CURRENTLY ON TRANSPORT OVER.
[2024-04-16 02:39] LABS: Albumin, Blood 3.3 g/dL (3.4-5.0); Albumin/Globulin Ratio 0.9 (0.8-1.8); Bilirubin, Total 4.1 mg/dL (0.1-1.0); Calcium, Blood 8.4 mg/dL (8.5-10.1); Creatinine, Blood 0.64 mg/dL (0.60-1.20); Globulin, Blood 3.8 g/dL (2.2-4.0); Potassium, Blood 4.1 mmol/L (3.5-5.5); Total Protein, Blood 7.1 g/dL (6.4-8.2)
[2024-04-16 03:17] LABS: Bilirubin, Direct 1.1 mg/dL (0.0-0.3)
[2024-04-16] MEDS ORDERED: PHENobarbital Sodium 65MG / ML 1ML Vial IV STA (03:42)
[2024-04-16] MEDS ORDERED: propofoL 100 ML IV ONE (03:59)
[2024-04-16] MEDS ORDERED: propofoL 100 ML IV SCH (04:00)
[2024-04-16] MEDS ORDERED: NS 250 ML IV PRN (04:00)
--- NOTE | 2024-04-16 04:01 | NUR ---
INTUBATION OF PATIENT 0400: PULSE 142 AFIB RVR, PRECEDEX AT 1.4MCG/KG/HR. RR 40 PT DIAPHORETIC/ PALE, AGGITATED, RESTLESS, DR WINSTON TO INTUBATE. 0402 ETOMIDATE 30MG AND 0403 EDWARDO. 50MG IV PUSH 0404 BAGGING PT 0404 SAO2 84% PULSE 131 143/122 MAP 132 BAGGING PT 0404 0405 ETT PLACEMENT 8.0 25 AT TEETH, COLOR CHANGE POSITIVE AND GOOD LUNG SOUNDS T/O BILAT. PULSE 141 SAO2 90% WHILE BAGGING PT, BP 141/119 MAP 127 . PROPOFOL GTT STARTED AT 20MCG/KG/MIN. END PROCEDURE AWAITING CHEST X-RAY
[2024-04-16 04:47] LABS: Source, Urine Foley catheter
[2024-04-16 04:52] LABS: Blood, Urine 4+ (Neg); Glucose Qualitative, Urine Neg (Neg); Ketones, Urine 2+ (Neg); Leukocyte Esterase, Urine 3+ (Neg); Nitrite, Urine Pos (Neg); Protein, Urine 3+ (Neg); Urobilinogen, Urine 3+ (Normal); pH, Urine 6.5 (5.0-8.0)
[2024-04-16 05:03] LABS: Appearance, Urine Hazy (Clear); Bilirubin, Urine 1+ (Neg); Color, Urine Amber (P-Yellow)
[2024-04-16 05:04] LABS: Amorphous Mod (0-Heavy); Squamous Epithelial Cells Few /hpf (Few); White Blood Cells, Urine 25-50 /hpf (0-5)
[2024-04-16 05:05] LABS: Bacteria Mod /hpf
--- NOTE | 2024-04-16 05:27 | NUR ---
update: pt went to ct scanner while intubated on propofol at 20mcg and precedex at 1mcg. Pt's pulse down to 90 currently. VS stable bp 110/76 map 88. spo2 95% on vent 40%. pt did have ett pulled back to 24 at teeth s/p x-ray and per dr estrada verbal order to the respitory therapy team. Collins 14 frisian was placed and og was placed also prior to ct scan s/p intubation. Pt restrained bilat upper extrem. while intubated for line safety.
[2024-04-16 05:39] LABS: PO2 Arterial 74.6 mmHg (80-100); pH Blood Arterial 7.43 (7.35-7.45)
--- NOTE | 2024-04-16 06:26 | NUR ---
UPDATES, END OF SHIFT NOTE PT HAD A VERY RESTLESS NIGHT BEFORE INTUBATION. HE WAS INTUBATED AT 0405 WITH AN 8.0 ETT 24 AT TEETH NOW. PT HAS BEEN TO CT TONIGHT WELL. HE GOT AN OG PLACED AND A AGUILAR PLACED. URINE IS NOW ORANGE IN COLOR. UA WAS SENT OFF TO LAB, SEE RESULTS. PT GOT A COUPLE NEW IV'S TONIGHT. HE WAS MOVED FROM PCU TO ICU AT 0200. HE REMAINS INTUBATED AND IN RESTRAINTS BILA UPPER EXTREM. HE HAS BRUISES ALL OVER HIS BODY IN DIFFERENT STAGES OF HEALING NOTED D/T COLORS OF EACH ONE, LEFT FLANK, KNEE'S, ABDOMEN, RED ELBOWS, LEFT EYE BRUISE, SCABS T/O. EVEN ON HIS TOES. PT LIVES WITH A ROOMMATE UNKNOWN ABOUT FAMILY RELATIONS AT THIS TIME. NO ONE WAS CALLED S/P HIS INTUBATION.
[2024-04-16] MEDS ORDERED: Acetaminophen 160MG / 5ML 10.15 UDC PT PRN (07:50)
--- NOTE | 2024-04-16 08:00 | NUR ---
INITIAL ASSESSMENT PATIENT INTUBATED AND SEDATED. PATIENT RESPONDS TO NOXIOUS STIMULI BY WIGGLING FEET. PATIENT ON PRECEDEX AND PROPOFOL. NO SIGNS OF PAIN NOTED. PATIENT ON VENT SETTINGS OF AC 16, TV 500, PEEP 5 AND 40% FIO2. ETT 8.0, 24 AT LIP. LUNGS COARSE THROUGHOUT. PATIENT IN A. FIB, HR 70S TO 80S. SBP 90S TO LOW 100S. ABD MODERATELY DISTENDED, SOFT, NORMOACTIVE BOWEL SOUNDS NOTED. OG TO LIS. DATE OF LAST BM UNKNOWN. AGUILAR DRAINING ORANGE COLORED URINE. SCATTERED BRUISES AND SCABS NOTED T/O BODY. CRUSTED LESION NOTED TO R CHEST. BED LOW. CARE CONTINUES.
[2024-04-16] MEDS ORDERED: CefTRIAXone Sodium 1,000 MG in NS 100 ML IV SCH (09:00)
[2024-04-16] MEDS ORDERED: Furosemide 10 MG / ML 2ML Vial IV SCH (09:00)
[2024-04-16] MEDS ORDERED: Gabapentin 250 MG/5 ML ORAL SYRINGE PT SCH (09:00)
[2024-04-16] MEDS ORDERED: Folic Acid 1 MG TAB PO SCH (09:00)
[2024-04-16] MEDS ORDERED: Multivitamins-Minerals Liquid 15 ML Oral Syringe PT SCH (09:00)
[2024-04-16] MEDS ORDERED: Docusate Sodium 100 MG UDC PT SCH (09:00)
[2024-04-16] MEDS ORDERED: Multivitamins/Minerals 1 Tab PO SCH (09:00)
[2024-04-16] MEDS ORDERED: Thiamine HCl 100 MG Tab PO SCH (09:00)
[2024-04-16] MEDS ORDERED: Digoxin 0.25 MG Tab PO SCH (09:00)
[2024-04-16] MEDS ORDERED: Pantoprazole Sodium 40 MG Injection IV SCH (09:00)
[2024-04-16] MEDS ORDERED: Diazepam 5 MG / ML 2ML SYR IV PRN (10:55)
[2024-04-16] MEDS ORDERED: Enoxaparin 120 MG/0.8 ML SYR SC SCH (11:00)
[2024-04-16] MEDS ORDERED: Ampicillin Sod/Sulbactam Sod 3 GM in NS 100 ML IV SCH (11:30)
[2024-04-16] MEDS ORDERED: Bisacodyl 10 MG Supp PR PRN (11:35)
[2024-04-16] MEDS ORDERED: Insulin Regular 100 UNIT/ML 10ML Vial SC SCH (12:00)
[2024-04-16] MEDS ORDERED: Hydrogen Peroxide 1.5 % Solution MT SCH (12:00)
--- NOTE | 2024-04-16 12:20 | NUR ---
PATIENT AFEBRILE. FIO2 NOW AT 30%. HR 60S TO 70S. SBP 80S TO 90S. NO CHANGES IN NEURO STATUS NOTED. BLOOD SUGAR 103; NO COVERAGE INDICATED. VITAL AF TF STARTED AT GOAL RATE OF 30 MLS/ HOUR WITH 30 ML WATER FLUSH Q4H. NO OTHER ACUTE CHANGES TO NOTE ON AT THIS TIME. NO SIGNS OF PAIN NOTED. CARE CONTINUES.
--- NOTE | 2024-04-16 15:38 | NUR ---
DR. GRACE INFORMED OF SOFT BPS DESPITE LOW SEDATION. INFORMED THAT WHEN SEDATION ON SB PATIENT AGITATED AND COUGHING CONSTANTLY. ORDERS PLACED.
[2024-04-16] MEDS ORDERED: Protein Supplement 30 ML UD PT SCH (16:00)
--- NOTE | 2024-04-16 16:00 | NUR ---
PATIENT AFEBRILE. HR 60S TO 70S. SBP IN THE 90S. FIO2 AT 35%. NO OTHER ACUTE CHANGES TO NOTE ON AT THIS TIME. CARE CONTINUES.
[2024-04-16] MEDS ORDERED: Rocuronium Bromide 10 MG/ML 5ML Injection IV ONE (17:05)
[2024-04-16] MEDS ORDERED: Etomidate 2MG / ML 10ML Vial IV ONE (17:05)
--- NOTE | 2024-04-16 18:23 | NUR ---
SHIFT SUMMARY PATIENT REMAINED INTUBATED AND SEDATED. PATIENT REMAINED RESPONDING TO PAINFUL STIMULI WITH GRIMACING OF FACE AND WIGGLING OF TOES. PATIENT REMAINED ON PRECEDEX AND PROPOFOL. PICC INSERTED THIS SHIFT AND LEVOPHED STARTED TO KEEP MAPS GREATER THAN 65. DR. GRACE INFORMED TO KEEP PATIENT SEDATED FOR THIS SHIFT. PATIENT REMAINED AFEBRILE. PATIENT HAD NO SIGNS OF PAIN THIS SHIFT. PATIENT ON VENT SETTINGS AC 16, TV 500, PEEP 5 AND FIO2 30 TO 40%. PATIENT REMAINED IN A. FIB, HR 60S TO 80S. SBP 60S TO 130S. TF STARTED THIS SHIFT AND IS AT GOAL RATE. NO BM THIS SHIFT. 1500 MLS OF DARK ORANGE COLORED URINE OUT FROM AGUILAR THIS SHIFT. NO CHANGES TO SKIN NOTED. PATIENT REPOSITIONED THROUGHOUT SHIFT. ROCEPHIN CHANGED TO UNASYN THIS SHIFT. BED LOW, CALL LIGHT IN REACH. NO SIGNS OF PAIN NOTED AT THIS TIME. REPORT WILL BE GIVEN TO ASSUMING SPINNING BATH PATROLLER NURSE SHORTLY.
--- NOTE | 2024-04-16 19:00 | NUR ---
ASSUMED CARE OF PATIENT AT 1900. REPORT RECEIVED FROM MARIN COSME. PT INTUBATED AND SEDATED. VENT SETTINGS 16/500/5/35% WITH O2 SATURATION > 92%. LEVOPHED INFUSING AT 2 MCG/MIN, PROPOFOL INFUSING AT 15 MCG/KG/MIN, PRECEDEX INFUSING AT 0.2 MCG/KG/HR. CONTINOUS CARDIAC MONITORING IN PLACE SHOWING AFIB WITH HR IN 60'S. NO ACUTE NEEDS IDENTIFED AT THIS TIME. SEE SHIFT ASSESSMENT FOR FULL DETAILS.
[2024-04-16] MEDS ORDERED: Cetylpyridinium Chloride 1 EA MISC MT SCH (20:00)
[2024-04-16 22:55] LABS: C DIFFICILE DNA NEGATIVE (Negative)
[2024-04-17] VITALS (84 sets, daily range): BP systolic 77–170; BP diastolic 50–128
[2024-04-17 03:36] LABS: Hematocrit 42.8 % (37.0-53.0); Hemoglobin 14.7 g/dL (13.5-17.5); Mean Corpuscular HGB Conc 34.3 g/dL (31.5-36.5); Mean Corpuscular Volume 96 fL (80-100); Mean Platelet Volume 11.5 fL (9.1-12.4); Platelet Count 97 K/mm3 (150-400); RDW Standard Deviation 52.7 fL (35.1-46.3); Red Blood Cell Count 4.45 M/mm3 (4.30-5.90); White Blood Cell Count 5.23 K/mm3 (4.00-11.30)
[2024-04-17 03:57] LABS: Albumin, Blood 2.9 g/dL (3.4-5.0); Albumin/Globulin Ratio 0.7 (0.8-1.8); Bilirubin, Direct 0.8 mg/dL (0.0-0.3); Bilirubin, Indirect 2.1 mg/dL (0.1-0.7); Bilirubin, Total 2.9 mg/dL (0.1-1.0); Calcium, Blood 8.7 mg/dL (8.5-10.1); Creatinine, Blood 0.74 mg/dL (0.60-1.20); Magnesium, Blood 1.9 mg/dL (1.6-2.4); Phosphorus, Blood 1.9 mg/dL (2.5-4.9); Potassium, Blood 3.3 mmol/L (3.5-5.5); Total Protein, Blood 6.9 g/dL (6.4-8.2)
[2024-04-17] MEDS ORDERED: Potassium Phosphate Dibasic 20 MM in Dextrose 5% 500 ML IV ONE (05:15)
--- NOTE | 2024-04-17 05:37 | NUR ---
SHIFT SUMMARY PT REMAINED INTUBATED AND SEDATED T/O ENTIRETY OF SHIFT. WITHDRAWS FROM PAINFUL STIMULI. UNABLE TO FOLLOW ANY COMMANDS OR OPEN EYES TO STIMULI. AFEBRILE. CONTINOUS CARDIAC MONITORING IN PLACE SHOWING AFIB WITH HR IN 60'S-70'S. SBP 70'S-120'S. ATTEMPTED LEVOPHED TITRATION BUT RESUMED AND REMAINS AT 2 MCG/MIN TO MAINTAIN MAP > 65. VENT SETTINGS A/C VC 16/500/5/35%. THICK WHITE SECRETIONS OUT. O2 SATURATIONS > 92%. TF INFUSING AT GOAL RATE. RECTAL TUBE PLACED WITH BROWN WATERY STOOL OUT. C-DIFF NEGATIVE. AGUILAR IN PLACE DRAINING DARK ORANGE/RED URINE TO GRAVITY. UCX PENDING. VARIOUS BRUISING T/O. PHOTOS IN CHART. PICC TO JOHNNA INFUSING LEVOPHED AT 2 MCG/MIN, PROPOFOL AT 15 MCG/KG/MIN, PRECEDEX AT 0.2 MCG/KG/HR. K-PHOS ORDERED PER HOSPITALIST. WILL CONTINUE TO MONITOR AND REPORT TO ONCOMING RN.
--- NOTE | 2024-04-17 07:47 | NUR ---
AM NOTE.... ASSUMED CARE OF PT AT 0700, PT IS INTUBATED AND SEDATED PROPOFOL AT 15MCG/KG/HR. VENT SETTINGS ARE AC/VC: 16/500/5/35% WITH O2 SATS>95%. L/S CLEAR T/O DIM IN THE BASES. HE IS IN AFIB IN THE 70'S BP IS STABLE WITH MAPS>65 ON 2MCG/MIN OF LEVOPHED. NO EDEMA IS NOTED ON THIS ASSESSMENT. BT PRESENT AND HYPERACTIVE, ABD IS SOFT TO PALPATION. TUBE FEEDS ARE RUNNING AT 30MLS/HR WHICH IS GOAL AT THIS TIME. RECTAL TUBE IS PATENT AND DRAINING LIQUID BROWN STOOLS TO GRAVITY. AGUILAR IS PATENT AND DRAINING TERESE URINE TO GRAVITY. WILL CONTINUE TO MONITOR.
[2024-04-17] MEDS ORDERED: Lactobacil 2-S.Thermo-Bifido 1 1 Cap PO SCH (09:00)
[2024-04-17] MEDS ORDERED: Cholecalciferol 1000 Unit Tablet (=25MCG) PT SCH (09:00)
--- NOTE | 2024-04-17 17:58 | NUR ---
SHIFT SUMMARY.... NO ACUTE NEGATIVE CHANGES NOTED THIS SHIFT. PT CONTINUES TO BE INTUBATED AND SEDATED. SEDATION MEDICATIONS ARE CURRENTLY PRECEDEX AT 1.4MCG/KG/HR AND PROPOFOL AT 15MCG/KG. PT HAS NEEDED PRN VALIUM FOR AGITATION/ETOH W/D SYMPTOMS. LEVOPHED HAS BEEN OFF SINCE THIS AM. THE PT'S RECTAL TUBE HAD NO OUTPUT THIS SHIFT, THE RECTAL TUBE WAS D/C'd D/T NO OUTPUT. PT'S VENT SETTINGS CONTINUE TO BE AC/VC: 16/500/5/30% WITH O2 SATS>95%. TUBE FEEDS CONTINUE AT GOAL OF 30MLS/HR WITH H2O FLUSHES OF 30MSL Q4HR. WILL CONTINUE TO MONITOR UNTIL REPORT IS GIVEN TO ONCOMING RN.
[2024-04-17] MEDS ORDERED: Rivaroxaban 10 MG Tab PO SCH (18:00)
--- NOTE | 2024-04-17 21:43 | NUR ---
ASSUMED CARE OF PATIENT AT 1900. REPORT RECEIVED FROM MARIN HANNA. PT INTUBATED AND SEDATED. VENT SETTINGS A/C VC 16/500/5/35%. O2 SATURATIONS > 92%. CONTINOUS CARDIAC MONITORING IN PLACE SHOWING AFIB WITH HR IN 70'S-80'S. PROPFOL INFUSING AT 15 MCG/KG/MIN, PRECEDEX AT 1.4 MCG/KG/HR. NO ACUTE NEEDS IDENTIFIED AT THIS TIME. SEE SHIFT ASSESSMENT FOR FULL DETAILS.
[2024-04-18] VITALS (78 sets, daily range): BP systolic 68–162; BP diastolic 55–145
[2024-04-18 03:56] LABS: BASOPHILS ABSOLUTE AUTO 0.03 K/mm3 (0.00-0.23); BASOPHILS PERCENT AUTO 1 % (0-2); EOSINOPHILS ABSOLUTE AUTO 0.14 K/mm3 (0.00-0.68); EOSINOPHILS PERCENT AUTO 3 % (0-6); Hematocrit 46.5 % (37.0-53.0); Hemoglobin 15.8 g/dL (13.5-17.5); IMMATURE GRAN ABSOLUTE AUTO 0.02 K/mm3 (0.00-0.10); IMMATURE GRAN PERCENT AUTO 0 % (0-1); LYMPHOCYTES ABSOLUTE AUTO 1.68 K/mm3 (0.84-5.20); LYMPHOCYTES PERCENT AUTO 32 % (21-46); MONOCYTES ABSOLUTE AUTO 0.58 K/mm3 (0.16-1.47); MONOCYTES PERCENT AUTO 11 % (4-13); Mean Corpuscular HGB 32.9 pg (26.0-34.0); Mean Corpuscular Volume 97 fL (80-100); Mean Platelet Volume 11.4 fL (9.1-12.4); NEUTROPHILS PERCENT AUTO 53 % (41-73); Platelet Count 103 K/mm3 (150-400); RDW Coefficient Variation 15.2 % (11.7-14.2); RDW Standard Deviation 54.9 fL (35.1-46.3); White Blood Cell Count 5.25 K/mm3 (4.00-11.30)
[2024-04-18 04:16] LABS: Bun/Creatinine Ratio 19.3 (12.0-20.0); Calcium, Blood 8.8 mg/dL (8.5-10.1); Creatinine, Blood 0.88 mg/dL (0.60-1.20); Phosphorus, Blood 3.1 mg/dL (2.5-4.9); Potassium, Blood 3.2 mmol/L (3.5-5.5)
[2024-04-18] MEDS ORDERED: Potassium Chloride 40 MEQ in NS 250 ML IV ONE (05:15)
[2024-04-18] MEDS ORDERED: Lansoprazole 15 MG TAB.RAP.DR PT SCH (06:00)
--- NOTE | 2024-04-18 06:07 | NUR ---
SHIFT SUMMARY PT REMAINED ALERT AND ORIENTED X 4 T/O ENTIRETY OF SHIFT. LOCALIZES PAINFUL STIMULI. AFEBRILE. MEDICATED PER EMAR FOR AGITATION + ETOH WITHDRAWAL WITH GOOD BENEFIT. CONTINOUS CARDIAC MONITORING IN PLACE SHOWING AFIB WITH HR IN 70'S-80'S. VENT SETTINGS A/C VC 16/500/5/35%, SUCTIONING WITH THICK WHITE SECRETIONS OUT. AGUILAR IN PLACE DRAINING CLEAR ORANGE URINE TO GRAVITY. NO BM THIS SHIFT. TF INFUSING AT GOAL RATE. PICC TO JOHNNA INFUSING PROPOFOL AT 15 MCG/KG/MIN, PRECEDEX INFUSING AT 1.4 MCG/KG/HR, UNASYN AND POTASSIUM REPLACEMENT INFUSING. WILL CONTINUE TO MONITOR AND REPORT TO ONCOMING RN.
--- NOTE | 2024-04-18 08:18 | NUR ---
ASSUMED CARE OF PT AT 0700 PT RESTING ON HOSPITAL BED, RESPONSIVE ONLY TO PAIN AT THIS TIME. PT ON VENTILATOR, SETTINGS: AC/VC 16/5/500/35%. ATTATACHED TO GRINDING WHEEL FACER, AFIB RATE OF 80-90S OBSERVED. PT HAS PROPOFOL RUNNING AT 15MCG/KG/MIN, PRECEDEX 1.7MCG/KG/HR. TUBE FEEDING RUNNING AT GOAL RATE OF 30ML/HR. AGUILAR CATH IN PLACE AND DRAINING YELLOW URINE TO GRAVITY. CARE CONTINUES.
--- NOTE | 2024-04-18 09:53 | NUR ---
PT UPDATE.... AT 0945 DR. GRACE AT THE BEDSIDE TO ASSESS THE PT. PER DR. GRACE THE PT'S PROPOFOL WAS STOPPED AND THE PRECEDEX DRIP WAS INCREASED FROM 0.7MCG/KG/HR TO 1.4MCG/KG/HR. DURING THIS TIME THE PT WAS CHANGED FROM AC/VC: 16/500/5/35% TO SP 12/5 AND 35% WITH O2 SATS>95% WILL CONTINUE TO MONITOR.
[2024-04-18] MEDS ORDERED: FentaNYL Citrate 50 MCG/ML 2 ML Injection IV PRN (11:40)
--- NOTE | 2024-04-18 11:42 | NUR ---
SEDATION VACATION PROPOFOL PUT ON SB AND PRECEDEX TITRATED DOWN TO 0.7MCG/KG/HR FOR 1 HOUR. PT RESPIRATORY RATE INCREASED AND HE COUGHING ON VENT. PT VERY DIAPHORETIC. PROVIDER UPDATED AND PT RESTARTED ON PRECEDEX AND PROPOFOL.
--- NOTE | 2024-04-18 14:10 | NUR ---
PT UPDATE PT HAD SEIZURE LIKE ACTIVITY- EYES FLUTTERED OPEN AND CLOSED, EXTREMITIES BECAME VERY RIGID. DR. GRACE TO BEDSIDE. 10 MG VALIUM IV ORDERED AND PROPOFOL RESTARTED ORDERED AT 15MCG/KG/MIN. EPISODE LASTED APPROX 1 MINUTE.
[2024-04-18] MEDS ORDERED: Piperacillin/Tazobactam Sod 4.5 GM in NS 100 ML IV SCH (16:30)
--- NOTE | 2024-04-18 17:18 | NUR ---
END OF SHIFT SUMMARY NO PURPOSEFUL MOVEMENT TODAY. DURING SEDATION VACATIONS PT BECAME TENSE, WAS GRIMACING, AND APPEARED UNCOMFORTABLE. WAS NOT ABLE TO FOLLOW COMMANDS OR OPEN EYES ON COMMAND- NO RESPONSE TO PAINFUL STIUMULI. PUPILS 2 W/ SLUGGISH RESPONSE TO LIGHT. PT HAD EPISODE OF SEIZURE LIKE ACTIVITY THIS AFTERNOON-SEE PREVIOUS NOTE FOR FURTHER DETAILS. PT REMAINS ON VENTILATOR, SETTINGS: AC/VC 16/5/500/35%FIO2. O2 SATS >93%. PT HAD LARGE AMOUNTS OF ORAL SECRETIONS AND THICK, WRAY AND PINK TINGED SPUTUM IN ETT. HR VIA CONTINUOUS MONITOR BECAME ELEVATED DURING SBT TO 120S, WAS OTHERWISE 80-90S AND IRREGULAR. BP WAS LABILE AND LEVOPHED WAS RESTARTED. CURRENTLY RUNNING AT 2MCG/MIN. PROPOFOL INFUSING AT 15MCG/KG/MIN. VANCO AND ZOSYN INFUSING DIRECTED. PT WAS PROFUSELY DIAPHORETIC DURING SHIFT, RECIEVED BED BATH. RECTAL TEMP PROBE PLACED AT THIS TIME- MAX TEMP WAS 102.2. MEDICATED W/ TYLENOL AND TEMP DID NOT RESPOND. FAN AND ICEPACKS APPLIED TO PT. WILL CONTINUE TO MONITOR. NO BM TODAY. AGUILAR CATH REMAINS PATENT AND DRAINING TO GRAVITY. WILL REPORT TO ONCOMING RN WHEN AVAILABLE. CARE CONTINUES.
[2024-04-18] MEDS ORDERED: Vancomycin HCL 2,500 MG in NS 250 ML IV SCH (18:00)
--- NOTE | 2024-04-18 19:00 | NUR ---
ASSUMED CARE ASSUMED CARE OF PATIENT. REMAINS INTUBATED- AC/VC 16/500/5/35%. SEDATED WITH PROPOFOL AT 15MCG/KG/MIN. BILATERAL SOFT WRIST RESTRAINTS IN PLACE TO PREVENT SELF-EXTUBATION. MONITOR SHOWS AFIB, RATE 80s-90s. BP STABLE WITH LEVOPHED AT 2MCG/MIN. TEMP 101.4F PER RECTAL TEMP PROBE. OG WITH VITAL AF 1.2 AT GOAL RATE OF 30MLs/HR. 250ML H20 FLUSH Q6H PER ORDER. AGUILAR PATENT AND DRAINING TO GRAVITY. SEE SHIFT ASSESSMENT FOR FULL ASSESSMENT.
[2024-04-19] VITALS (76 sets, daily range): BP systolic 89–174; BP diastolic 49–136
--- NOTE | 2024-04-19 | NUR ---
LOOSE STOOL INCONTINENT OF LARGE AMOUNT OF LIQUID BROWN STOOL- RECTAL TUBE PLACED AT THIS TIME WITH IMMEDIATE RETURN OF OVER 600MLs STOOL.
--- NOTE | 2024-04-19 00:15 | NUR ---
HEEL BLISTER RIGHT HEEL NOTED TO HAVE MODERATE SIZED FLUID FILLED BLISTER. SITE CLEANED AND PHOTO TAKEN. FOAM DRESSING APPLIED.
[2024-04-19] MEDS ORDERED: Prochlorperazine Edisylate 10 mg Vial IV ONE (03:00)
[2024-04-19] MEDS ORDERED: Prochlorperazine Edisylate 10 mg Vial IV PRN (03:00)
[2024-04-19 04:36] LABS: Hematocrit 45.3 % (37.0-53.0); Hemoglobin 15.5 g/dL (13.5-17.5); Mean Corpuscular HGB 33.8 pg (26.0-34.0); Mean Corpuscular HGB Conc 34.2 g/dL (31.5-36.5); Mean Corpuscular Volume 99 fL (80-100); Mean Platelet Volume 11.1 fL (9.1-12.4); Platelet Count 120 K/mm3 (150-400); RDW Standard Deviation 58.5 fL (35.1-46.3); Red Blood Cell Count 4.59 M/mm3 (4.30-5.90); White Blood Cell Count 7.14 K/mm3 (4.00-11.30)
[2024-04-19 04:50] LABS: Calcium, Blood 9.2 mg/dL (8.5-10.1); Creatinine, Blood 0.89 mg/dL (0.60-1.20); Magnesium, Blood 1.6 mg/dL (1.6-2.4)
--- NOTE | 2024-04-19 05:52 | NUR ---
SHIFT SUMMARY NO ACUTE CHANGES. PT REMAINS INTUBATED- AC/VC 16/500/5/35%. SEDATED WITH PROPOFOL AT 15MCG/KG/MIN. MEDICATED WITH VALIUM 10MG IV X 2 DOSES FOR INCREASED RESP RATE, HEART RATE. NO SEIZURE ACTIVITY NOTED DURING SHIFT. NOT FOLLOWING COMMANDS, BUT WITHDRAWS EXTREMITIES TO NOXIOUS STIMULI. OCCASIONAL SPONTANEOUS MOVEMENT NOTED IN BILATERAL UPPER EXTREMITIES. PT ALSO MOVES HEAD BACK AND FORTH ON PILLOW. BILATERAL SOFT WRIST RESTRAINTS REMAIN IN PLACE TO PREVENT SELF-EXTUBATION. MONITOR SHOWS AFIB- RATE INCREASED TO 140s-170s WITH AGITATION AND REPOSITIONING. LEVOPHED TITRATED OFF. OG WITH VITAL AF 1.2 AT GOAL RATE OF 30MLs/HR. 250ML H20 FLUSH Q6H. RECTAL TUBE PLACED FOR LIQUID BROWN STOOL- TOTAL OF APPROXIMATELY 1500MLs DURING SHIFT. AGUILAR PATENT AND DRAINING TO GRAVITY. WILL REPORT TO ONCOMING RN WHEN AVAILABLE.
[2024-04-19 06:02] LABS: Phosphorus, Blood 4.3 mg/dL (2.5-4.9)
[2024-04-19] MEDS ORDERED: Mag Sulfate 1 GM/D5% 100ML 100 ML IV ONE (06:20)
[2024-04-19] MEDS ORDERED: Potassium Chloride 40 MEQ in NS 250 ML IV ONE (06:25)
--- NOTE | 2024-04-19 07:00 | NUR ---
ASSUMED CARE OF PT AT 0700. PT RESTING ON BED, APPEARS TENSE AND IS MOVING UPPER EXTREMITIES. BILAT UPPER EXTREMITIES REMAIN RESTRAINED. NOT FOLLOWING COMMANDS AT THIS TIME. PT IS ON VENT, SETTINGS AC/VC: 16/5/500/30%FIO2. RR 20S. LUNGS CLEAR T/O. LARGE AMOUNT OF SALIVIA SUCTIONED FROM MOUTH. THICK WRAY SECRETIONS FROM ETT. PROPOFOL RUNNING AT 15MCG/KG/MIN. 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 PT BP STABLE. PT HAS RECTAL TUBE IN PLACE, PATENT AND DRAINING WATERY BROWN STOOL INTO BAG. AGUILAR CATH PATENT AND DRAINING TO GRAVITY. CARE CONTINUES.
[2024-04-19] MEDS ORDERED: Mag Sulfate 1 GM/D5% 100ML 100 ML IV STA (08:10)
[2024-04-19] MEDS ORDERED: D5W-1/4NS KCl 20mEq 1,000 ML IV SCH (08:30)
[2024-04-19] MEDS ORDERED: Potassium Chloride 20 MEQ/15 ML UDC PO ONE ×2 (09:00→16:00)
[2024-04-19] MEDS ORDERED: Metoprolol Tartrate 25 MG Tab PO SCH ×2 (09:00→21:00)
[2024-04-19] MEDS ORDERED: Metoprolol Tartrate 1 MG/ML 5 ML VIAL IV ONE (09:45)
[2024-04-19 12:05] LABS: Bun/Creatinine Ratio 21.8 (12.0-20.0); Calcium, Blood 8.5 mg/dL (8.5-10.1); Creatinine, Blood 0.97 mg/dL (0.60-1.20); Potassium, Blood 3.6 mmol/L (3.5-5.5)
[2024-04-19] MEDS ORDERED: Metoprolol Tartrate 25 MG Tab PO STA (15:56)
[2024-04-19] MEDS ORDERED: Banana Flakes/Tos 1 EA Powder Pack PT SCH (16:00)
--- NOTE | 2024-04-19 17:16 | NUR ---
END OF SHIFT SUMMARY PT REMAINED ON VENT W/ SETTINGS UNCHANGED- ORAL AND TUBE SECRECTIONS DECREASED FROM PREVIOUS SHIFT. PT DISPLAYED SIGNS OF DISCOMFORT DURING SHIFT EVIDENCED BY INCREASED HR AND RR. PT TENSED EYELIDS WHEN PROMPTED TO OPEN EYES- SEEMED PURPOSEFUL. WAS NOT ABLE TO SQUEEZE HANDS OR MOVE EXTREMITIES ON COMMAND. PT WAS MEDICATION ONCE THIS SHIFT W/ PRN IV VALIUM AND FENTANYL. WAS GIVEN IV DOSE OF METOPROLOL FOR HR W/ GOOD EFFECT. HR HAS REMAINED IRREGULAR, RATE OF 100-120S. PT TO START ORAL METOPROLOL BID GOING FORWARD. PROPOFOL CONTINUES TO RUN AT 15MCG/KG/MIN. PT ALSO HAS D5 1/4NS W/ POTASSIUM RUNNING DIRECTED. BLOOD SUGARS BEING CHECKED Q6, INSULIN COVERAGE HAS NOT BEEN INDICATED. PT HAS AGUILAR CATH DRAINING CLEAR YELLOW/ORANGE URINE TO BAG VIA GRAVITY. GOOD OUTPUT TODAY. 300ML OUTPUT OF WATERY BROWN STOOL VIA RECTAL TUBE. PT REMAINED AFEBRILE DURING SHIFT. WILL CONTINUE TO MONITOR AND GIVE REPORT TO ONCOMING SHIFT RN WHEN AVAILABLE. CARE CONTINUES.
--- NOTE | 2024-04-19 19:30 | NUR ---
ASSUMPTION OF CARE ASSUMED CARE OF PT AT 1900, BEDSIDE SHIFT REPORT RECEIVED FROM STUART RN. PT RESTING IN BED INTUBATED AND SEDATED. PROPOFOL INFUSING AT 15MCG/KG/MIN. PT OCCASIONALLY MOVES RIGHT ARM, NON PURPOSEFUL. PT DOES NOT WITHDRAW EXTREMITIES TO NOXIOUS STIMULI. PT HAS INTACT COUGH AND GAG REFLEX. HR 90-100'S AFIB, MAP >65. PT INTUBATED, VENT SETTINGS AC/VC 16/500/5/30%, OXYGEN SATURATION >95% ABDOMEN SOFT, BOWEL TONES HYPOACTIVE. OG TUBE IN PLACE, VITAL AF INFUSNG AT 30MLS/HR WHICH IS GOAL WITH 160ML Q6H WATER FLUSH. RECTAL TUBE IN PLACE WITH LIQUID BROWN OUTPUT. AGUILAR IN PLACE PATENT DRIANING TO GRAVITY. PICC LINE IN PLACE TO JOHNNA INFUSING PROPOFOL WELL D5 1/4 NS WITH 20MEQ POTASSIUM INFUSING AT 75MLS/HR. BED IN LOWEST POSITION, CARE CONTINUES.
[2024-04-20] VITALS (89 sets, daily range): BP systolic 55–189; BP diastolic 38–161
[2024-04-20 02:22] LABS: BASOPHILS ABSOLUTE AUTO 0.03 K/mm3 (0.00-0.23); BASOPHILS PERCENT AUTO 1 % (0-2); EOSINOPHILS ABSOLUTE AUTO 0.23 K/mm3 (0.00-0.68); EOSINOPHILS PERCENT AUTO 4 % (0-6); Hemoglobin 14.9 g/dL (13.5-17.5); IMMATURE GRAN ABSOLUTE AUTO 0.02 K/mm3 (0.00-0.10); IMMATURE GRAN PERCENT AUTO 0 % (0-1); LYMPHOCYTES ABSOLUTE AUTO 1.36 K/mm3 (0.84-5.20); LYMPHOCYTES PERCENT AUTO 22 % (21-46); MONOCYTES ABSOLUTE AUTO 0.72 K/mm3 (0.16-1.47); MONOCYTES PERCENT AUTO 12 % (4-13); Mean Corpuscular HGB 33.3 pg (26.0-34.0); Mean Corpuscular HGB Conc 33.1 g/dL (31.5-36.5); Mean Corpuscular Volume 101 fL (80-100); Mean Platelet Volume 10.7 fL (9.1-12.4); NEUTROPHILS ABSOLUTE AUTO 3.81 K/mm3 (1.96-9.15); NEUTROPHILS PERCENT AUTO 62 % (41-73); Platelet Count 122 K/mm3 (150-400); RDW Coefficient Variation 16.3 % (11.7-14.2); Red Blood Cell Count 4.47 M/mm3 (4.30-5.90); White Blood Cell Count 6.17 K/mm3 (4.00-11.30)
[2024-04-20 02:27] LABS: Alanine Aminotransfer (ALT/SGP 21 U/L (12-78); Albumin, Blood 2.6 g/dL (3.4-5.0); Albumin/Globulin Ratio 0.6 (0.8-1.8); Alk Phos 81 U/L (50-136); Anion Gap 9 mmol/L (3-11); Aspartate Aminotrans (AST/SGOT 35 U/L (12-37); Bilirubin, Total 1.2 mg/dL (0.1-1.0); Blood Urea Nitrogen 17 mg/dL (8-24); Bun/Creatinine Ratio 20.9 (12.0-20.0); CO2, Blood 23 mmol/L (21-32); Chloride, Blood 122 mmol/L (98-108); Creatinine, Blood 0.81 mg/dL (0.60-1.20); Globulin, Blood 4.3 g/dL (2.2-4.0); Glomerular Filtration Rate 98 (60-); Glucose, Blood 126 mg/dL (70-99); Potassium, Blood 3.4 mmol/L (3.5-5.5); Sodium, Blood 151 mmol/L (136-145); Total Protein, Blood 6.9 g/dL (6.4-8.2)
[2024-04-20 02:44] LABS: Magnesium, Blood 2.1 mg/dL (1.6-2.4)
--- NOTE | 2024-04-20 02:52 | NUR ---
PT UPDATE PT HAD 18 BEAT RUN OF VTACH, MORNING LABS DRAWN EARLY. CALL PLACED TO HOSPITALIST REGARDING VTACH WELL MORNING LAB RESULTS. ORDERS RECEIVED FOR REPEAT LABS AT 0800. CARE CONTINUES.
--- NOTE | 2024-04-20 06:08 | NUR ---
SHIFT SUMMARY NO ACUTE CHANGES THIS SHIFT. PT CONTINUES TO BE INTUBATED AND SEDATED, PROPOFOL INFUSING AT 15MCG/KG/MIN. PT DOES NOT WITHDRAW EXTREMITIES TO NOXIOUS STIMULI, PT DOES HAVE INTACT COUGH AND GAG. PT MEDICATED WITH VALIUM ONCE THIS SHIFT, WELL FENTANYL ONCE THIS SHIFT PER ORDERS, SEE EMAR FOR DETAILS. HR 100-150'S AFIB, MAP >65. VENT SETTINGS AC/VC 16/500/5/30%, OXYGEN SATURATION >95%. ABDOMEN SOFT AND ROUND, BOWEL TONES HYPOACTIVE BUT PRESENT IN ALL FOUR QUADRANTS. OG TUBE IN PLACE WITH VITAL AF INFUSING AT GOAL RATE OF 30MLS/HR WITH 160ML Q6H WATER FLUSH. RECTAL TUBE IN PLACE WITH LIQUID BROWN OUTPUT. AGUILAR IN PLACE PATENT DRAINING YELLOW URINE TO GRAVITY. PICC LINE IN PLACE TO JOHNNA INFUSING PROPOFOL WELL D5 1/4 NS WITH 20MEQ KCL AT 75MLS/HR. BED IN LOWEST POSIITON, CARE CONTINUES.
--- NOTE | 2024-04-20 07:00 | NUR ---
ASSUME CARE OF PT AT 0700. PT RESTING ON HOSPITAL BED, APPEARS COMFORTABLE. PROPOFOL INFUSING AT 15MCG/KG/MIN. PT ON VENTILATOR, SETTINGS- ACVC: 16/5/500/30%FIO2, LUNG SOUNDS CLEAR T/O. SMALL AMOUNT OF SECRETIONS SUCTIONED FROM TUBE. PT IS IN BILATERAL UPPER EXTREMITY RESTRAINTS. HR IRREGULAR AND RATE IS 110-130S, AFIB, VIA CONTINUOUS FAMILY ASSESSMENT WORKER. BP STABLE. RECTAL TUBE DRAINING LIQUID BROWN STOOL. AGUILAR CATH PATENT AND DRAINING TO GRAVITY. WILL CONTINUE TO MONITOR.
[2024-04-20] MEDS ORDERED: Furosemide 10 MG/ML 4ML Vial IV ONE (09:05)
[2024-04-20] MEDS ORDERED: Potassium Chloride 40 MEQ in NS 250 ML IV ONE (09:10)
[2024-04-20 09:11] LABS: Albumin, Blood 2.6 g/dL (3.4-5.0); Albumin/Globulin Ratio 0.6 (0.8-1.8); Bilirubin, Total 1.2 mg/dL (0.1-1.0); Bun/Creatinine Ratio 18.6 (12.0-20.0); Calcium, Blood 8.9 mg/dL (8.5-10.1); Creatinine, Blood 0.75 mg/dL (0.60-1.20); Globulin, Blood 4.4 g/dL (2.2-4.0); Potassium, Blood 4.1 mmol/L (3.5-5.5)
[2024-04-20] MEDS ORDERED: Metoprolol Tartrate 50 MG Tab PO SCH (09:30)
[2024-04-20] MEDS ORDERED: Midazolam HCl 1MG / ML 2ML Vial IV PRN (09:45)
[2024-04-20] MEDS ORDERED: Sacubitril/Valsartan 24 MG-26 MG Tab PO SCH (10:30)
--- NOTE | 2024-04-20 15:03 | NUR ---
Pt rapid response. then coded. pt is full code no AD or POST on file. pt did not have phone numbers in [place] unable to unlock phone. [facility] only number was his brothers number and that is disconnected. NO AD onfile at either hospital. pt kps score is 20%.
[2024-04-20] MEDS ORDERED: Midazolam HCL 50 MG in NS 40 ML IV PRN (15:40)
[2024-04-20] MEDS ORDERED: FentaNYL Citrate 50 MCG/ML 2 ML Injection IV PRN (15:45)
--- NOTE | 2024-04-20 17:11 | NUR ---
END OF SHIFT SUMMARY PT REMAINS ON VENT, SETTINGS UNCHANGED FROM START OF SHIFT. PT HAD SEDATION VACATION THIS AM, PROPOFOL TURNED OFF. PT BECAME RESTLESS ON GURNEY AND WAS OPENING EYES SPONTANEOUSLY- DID NOT MAKE EYE CONTACT OR TRACK. HR AND RR INCREASED AND SEDATION WAS RESTARTED. PROPOFOL RUNNING AT 15MCG/KG/HR, VERSED DRIP INITIATED AT 2MG/HR. PT HAD ONE EPISODE OF AGITATION REQUIRING PRN DOSE OF VALIUM AND FENTANYL- PT RR INCREASED TO 40, HR TO 160S, BP HYPERTENSIVE: SBP IN 170S, AND TEMP TO 103.1. VERSED ORDERED AT THIS TIME AND PT MEDICATED W/ TYLENOL. ICE PACKS AND FAN ALSO APPLIED TO PT. PT HR REMAINS IN AFIB, RANGING FROM 80S-160S. GOOD OUTPUT FROM AGUILAR CATH AFTER RECIEVING LASIX TODAY, PATENT AND DRAINING TO GRAVITY. RECTAL TUBE CONTINUES TO COLLECT LIQUID BROWN STOOL. WILL REPORT TO ONCOMING SHIFT RN WHEN AVAILABLE. CARE CONTINUES
[2024-04-20 17:30] LABS: Vancomycin, Trough 19.7 ug/mL (5.0-10.0)
--- NOTE | 2024-04-20 19:00 | NUR ---
ASSUMPTION OF CARE BEDSIDE SHIFT REPORT RECEIVED FROM STUART RN. PT RESTING IN BED CONTINUES TO BE INTUBATED AND SEDATED. PROPOFOL INFUSING AT 15MCG/KG/MIN, VERSED INFUSING AT 2MG/HR. PT DOES NOT WITHDRAW EXTREMTIIES TO NOXIOUS STIMULI, DOES NOT OPEN EYES OR FOLLOW DIRECTION. PT DOES HAVE INTACT COUGH AND GAG REFLEX. PT HAD LOW GRADE FEVER, ICE PACKS AND FAN IN PLACE. HR 80-140'S AFIB, SBP 100-120'S. ABDOMEN SOFT, BOWEL TONES ACTIVE IN ALL FOUR QUADRANTS. OG TUBE IN PLACE WITH VITAL AF INFUSING AT GOAL RATE OF 30MLS/HR WITH 160ML Q6H WATER FLUSH. RECTAL TUBE IN PLACE WITH LIQUID BROWN OUTPUT. FOELY IN APLCE PATENT DRAINING TO GRAVITY. PICC LINE IN PLACE TO JOHNNA INFUSING PROPOFOL WELL D5 1/4NS WITH 20MEQ KCL INFUSING AT 75MLS/HR. BED IN LOWEST POSITION, CARE CONTINUES.
[2024-04-20] MEDS ORDERED: Albumin (Human) 12.5gm/250ml 250 ML IV ONE (20:30)
[2024-04-20] MEDS ORDERED: Phenylephrine HCl 20 MG in NS 250 ML IV SCH (20:30)
--- NOTE | 2024-04-20 20:30 | NUR ---
PT UPDATE CALL PLACED TO DR. PEREZ REGARDING PT HYPOTENSION, MAP IN THE 50'S/ ORDERS RECEIVED. PT BRIEFLY PLACED ON LOW DOSE LEVOPHED, ALBUMIN GIVEN PER EMAR WITH GOOD EFFECT. LEVOPHED PLACED ON SB. CARE CONTINUES.
[2024-04-21] VITALS (65 sets, daily range): BP systolic 83–178; BP diastolic 53–139
[2024-04-21 04:41] LABS: BASOPHILS ABSOLUTE AUTO 0.04 K/mm3 (0.00-0.23); BASOPHILS PERCENT AUTO 0 % (0-2); EOSINOPHILS ABSOLUTE AUTO 0.07 K/mm3 (0.00-0.68); EOSINOPHILS PERCENT AUTO 1 % (0-6); Hematocrit 44.5 % (37.0-53.0); Hemoglobin 14.3 g/dL (13.5-17.5); IMMATURE GRAN ABSOLUTE AUTO 0.08 K/mm3 (0.00-0.10); IMMATURE GRAN PERCENT AUTO 1 % (0-1); LYMPHOCYTES ABSOLUTE AUTO 0.88 K/mm3 (0.84-5.20); LYMPHOCYTES PERCENT AUTO 8 % (21-46); MONOCYTES ABSOLUTE AUTO 0.97 K/mm3 (0.16-1.47); MONOCYTES PERCENT AUTO 9 % (4-13); Mean Corpuscular HGB 33.3 pg (26.0-34.0); Mean Corpuscular HGB Conc 32.1 g/dL (31.5-36.5); Mean Corpuscular Volume 104 fL (80-100); NEUTROPHILS ABSOLUTE AUTO 8.68 K/mm3 (1.96-9.15); NEUTROPHILS PERCENT AUTO 81 % (41-73); Platelet Count 101 K/mm3 (150-400); RDW Coefficient Variation 16.5 % (11.7-14.2); RDW Standard Deviation 63.2 fL (35.1-46.3); White Blood Cell Count 10.72 K/mm3 (4.00-11.30)
[2024-04-21 04:59] LABS: Albumin, Blood 2.5 g/dL (3.4-5.0); Albumin/Globulin Ratio 0.6 (0.8-1.8); Bilirubin, Total 1.3 mg/dL (0.1-1.0); Bun/Creatinine Ratio 19.6 (12.0-20.0); Calcium, Blood 8.6 mg/dL (8.5-10.1); Creatinine, Blood 1.12 mg/dL (0.60-1.20); Globulin, Blood 3.9 g/dL (2.2-4.0); Magnesium, Blood 1.8 mg/dL (1.6-2.4); Potassium, Blood 3.5 mmol/L (3.5-5.5); Total Protein, Blood 6.4 g/dL (6.4-8.2)
--- NOTE | 2024-04-21 06:15 | NUR ---
SHIFT SUMMARY PT RESTING IN BED, CONTINUES TO BE INTUABATED AND SEDATED PROPOFOL INFUSING AT 20MCG/KG/MIN, VERSED INFUSING AT 1MG/HR. PT OCCASIONALLY MOVES LOWER EXTREMITIES, DOES NOT WITHDRAW EXTREMITIES FROM NOXIOUS STIMULI, DOES NOT OPEN EYES OR FOLLOW DIRECTION. HR 90-140'S AFIB, KYLIE-SYNEPHRINE AND LEVOPHED ON SB AT THIS TIME, SBP 100'S, MAP >65. ABDOMEN SOFT, BOWEL TONES ACTIVE IN ALL FOUR QUADRANTS. OG TUBE IN PLACE WITH VITAL AF INFUSING AT GOAL RATE OF 30MLS/HR WITH 160ML Q6H WATER FLUSH. RECTAL TUBE IN PLACE WITH LIQUID BROWN OUTPUT. AGUILAR IN PLACE PATENT DRAINING DARK YELLOW URINE TO GRAVITY. PICC LINE IN PLACE TO JOHNAN INFUSING. D5 1/4 NS WITH 20MEQ KCL INFUSING AT 75MLS/HR. BED IN LOWEST POSITION, CARE CONTINUES.
--- NOTE | 2024-04-21 07:00 | NUR ---
ASSUME CARE: I have assumed care of this patient.
[2024-04-21] MEDS ORDERED: Potassium Phosphate Dibasic 15 MM in Dextrose 5% 250 ML IV STA (08:55)
--- NOTE | 2024-04-21 18:13 | NUR ---
SHIFT SUMMARY: Sedation placed on standby this morning. Pt has attempted to reposition himself and localize the ETT with BLE a few times; He does not open his eyes or follow commands. Fluid balance +335. Rectal tube still in place with 350 mls out. Pt's brother provided update via telephone. Soft wrist restraints still in place. Vent settings unchanged.
--- NOTE | 2024-04-21 20:46 | NUR ---
ASSUMPTION OF CARE ASSUMED CARE OF PT AT 1900, BEDSIDE SHIFT REPORT RECEIVED FROM STUART RN. PT RESTING IN BED, CONTINUES TO BE INTUBATED WITH NO SEDATION. PT OCCASIOANLLY MOVES RIGHT ARM AND APPEARS TO ATTEMPT TO READJUST SHOULDERS OCCASIONALLY. PT OPENED EYES WITH REPOSIITONING, DOES NOT MAKE EYE CONTACT OR TRACK. PT DOES NOT FOLLOW DIRECTON WHEN PROMPTED. HR 90-130'S AFIB, MAP >65. VENT SETTINGS AC/VC 16/500/5/30%, OXYGEN SATURATION >95%. ABDOMEN SOFT, BOWEL TONES HYPOACTIVE, OG TUBE IN PLACE INFUSING VITAL AF AT 30MLS/HR WITH 160ML Q6H WATER FLUSH. RECTAL TUBE IN PLACE PATENT DRAINING LIQUID BROWN STOOL TO COLLECTION BAG. AGUILAR IN PLACE PATENT DRAINING YELLOW URINE TO GRAVITY. PICC LINE IN PLACE TO JOHNNA INFUSING NS TKO. BED IN LOWEST POSITION, CARE CONTINUES.
[2024-04-22] VITALS (46 sets, daily range): BP systolic 84–165; BP diastolic 59–135
[2024-04-22 05:50] LABS: BASOPHILS ABSOLUTE AUTO 0.03 K/mm3 (0.00-0.23); BASOPHILS PERCENT AUTO 1 % (0-2); EOSINOPHILS ABSOLUTE AUTO 0.12 K/mm3 (0.00-0.68); EOSINOPHILS PERCENT AUTO 2 % (0-6); Hemoglobin 14.7 g/dL (13.5-17.5); IMMATURE GRAN ABSOLUTE AUTO 0.02 K/mm3 (0.00-0.10); IMMATURE GRAN PERCENT AUTO 0 % (0-1); LYMPHOCYTES ABSOLUTE AUTO 1.08 K/mm3 (0.84-5.20); LYMPHOCYTES PERCENT AUTO 17 % (21-46); MONOCYTES ABSOLUTE AUTO 1.12 K/mm3 (0.16-1.47); MONOCYTES PERCENT AUTO 18 % (4-13); Mean Corpuscular HGB Conc 32.7 g/dL (31.5-36.5); Mean Corpuscular Volume 101 fL (80-100); Mean Platelet Volume 11.5 fL (9.1-12.4); NEUTROPHILS ABSOLUTE AUTO 3.97 K/mm3 (1.96-9.15); NEUTROPHILS PERCENT AUTO 63 % (41-73); Platelet Count 118 K/mm3 (150-400); RDW Coefficient Variation 16.2 % (11.7-14.2); RDW Standard Deviation 59.9 fL (35.1-46.3); Red Blood Cell Count 4.46 M/mm3 (4.30-5.90); White Blood Cell Count 6.34 K/mm3 (4.00-11.30)
--- NOTE | 2024-04-22 05:58 | NUR ---
SHIFT SUMMARY PT CONTINUES TO REST IN BED, INTUBATED, LOW DOSE PROPOFOL STARTED AT 0400, INFUSING AT 10MCG/KG/MIN. PT WITHDRAWS UPPER EXTREMITIES TO NOXIOUS STIMULI, OCCASIONALLY MOVES RIGHT ARM, AND MAKES YAWNING MOTION WITH MOUTH. PT OPENS EYES WITH STIMULATION/REPOSITIONING, DOES NOT TRACK OR MAKE EYE CONTACT, PT DOES NOT FOLLOW DIRECTION WHEN PROMPTED. HR 100-150'S AFIB, MAP >65. VENT SETTINGS AC/VC 16/500/5/30%, OXYGEN SATURATION >95%. ABDOMEN ROUND, BOWEL TONES HYPOACTIVE. OG TUBE IN PLACE INFUSING VITAL AF AT GOAL RATE OF 30MLS/HR WITH 160ML Q6H WATER FLUSH. RECTAL TUBE IN PLACE PATENT DRAINING LIQUID BROWN OUTPUT TO COLLECTION BAG. AGUILAR IN PLACE PATENT DRAINING TO GRAVITY. PICC LINE IN PLACE TO JOHNNA INFUSING PROPOFOL WELL NS TKO. BED IN LOWEST POSITION, CARE CONTINUES.
[2024-04-22 06:06] LABS: Alanine Aminotransfer (ALT/SGP 37 U/L (12-78); Albumin, Blood 2.2 g/dL (3.4-5.0); Albumin/Globulin Ratio 0.5 (0.8-1.8); Alk Phos 72 U/L (50-136); Anion Gap 9 mmol/L (3-11); Aspartate Aminotrans (AST/SGOT 53 U/L (12-37); Bilirubin, Total 0.7 mg/dL (0.1-1.0); Blood Urea Nitrogen 20 mg/dL (8-24); Bun/Creatinine Ratio 26.5 (12.0-20.0); CO2, Blood 22 mmol/L (21-32); Calcium, Blood 8.4 mg/dL (8.5-10.1); Chloride, Blood 123 mmol/L (98-108); Creatinine, Blood 0.76 mg/dL (0.60-1.20); Globulin, Blood 4.1 g/dL (2.2-4.0); Glomerular Filtration Rate 100 (60-); Glucose, Blood 120 mg/dL (70-99); Phosphorus, Blood 2.7 mg/dL (2.5-4.9); Potassium, Blood 3.3 mmol/L (3.5-5.5); Sodium, Blood 151 mmol/L (136-145); Total Protein, Blood 6.3 g/dL (6.4-8.2)
[2024-04-22] MEDS ORDERED: Potassium Chloride 40 MEQ in NS 250 ML IV ONE (06:15)
--- NOTE | 2024-04-22 09:47 | NUR ---
AM NOTE... ASSUMED CARE OF PT AT 0700, PT IS INTUBATED AND SEDATED ON PROPOFOL AT 10MCG/KG THIS WAS STOPPED AT 0745. PT'S ET TUBE IS 8.0 AND 24 AT THE TEETH, VENT SETTINGS AC/VC: 16/500/530% WITH O2 SATS>95%. L/S CLEAR T/O DIM IN THE BASES. HE IS IN AFIB W/BBB IN THE 100'S-110'S BP IS STABLE BUT LABILE AT TIMES. OG TUBE IS PATENT AND RUNNING TUBE FEEDS AT GOAL OF 30MLS/HR WITH H2O FLUSHES OF 160MLS Q6HR. RECTAL TUBE IS PATENT AND DRAINING LIQUID BROWN STOOLS TO GRAVITY. SBT STARTED AT 0845 PT TOLERATING THIS WELL SO FAR. WILL CONTINUE TO MONITOR.
[2024-04-22] MEDS ORDERED: Furosemide 10 MG/ML 4ML Vial IV SCH (10:18)
[2024-04-22] MEDS ORDERED: Furosemide 10 MG/ML 4ML Vial IV ONE (10:25)
[2024-04-22] MEDS ORDERED: Metoprolol Tartrate 25 MG Tab PO ONE (10:30)
--- NOTE | 2024-04-22 18:24 | NUR ---
SHIFT SUMMARY... NO ACUTE NEGATIVE CHANGES NOTED THIS SHIFT. PT HAS BEEN OFF OF SEDATION SINCE THIS AM ON ON PRESSURE SUPPORT MOST OF TODAY, PT WOULD OPEN HIS EYES BUT NOT FOLLOW ANY COMMANDS. PT HAS BEEN HYPERTENSIVE AND TACHY AT TIMES PROVIDER IS AWARE. PLANS FOR POSSIBLE EXTUBATION TOMORROW. PT'S RECTAL TUBE IS PATENT AND DRAINING LIQUID BROWN STOOL TO GRAVITY. PT'S AGUILAR IS ALSO PATENT AND DRAINING TO GRAVITY. TMAX THIS SHIFT WAS 99.9. WILL CONTINUE TO MONITOR UNTIL REPORT IS GIVEN TO ONCOMING RN.
--- NOTE | 2024-04-22 22:00 | NUR ---
ASSUMED CARE AT 1900 PT LAYING IN BED INTUBATED AND SEDATED. PROPOFOL INFUSING AT 10MCG/KG/MIN; REACTIVE TO PAINFUL STIMULI AND WHEN COMPLETING PERSONAL CARE; RASS -3. VENT SETTINGS AC/VC 14/520/5/30%; RR LOW TO MID 20'S. AFEBRILE. AFIB NOTED WITH RATE 80-120'S. SBP 90-110 WITH MAP >65. VITAL AF INFUSING VIA OG AT 30ML/HR (GOAL) WITH 160ML WATER Q6HRS; RECTAL TUBE IN PLACE AND DRAINING LIQUID BROWN STOOL. AGUILAR IN PLACE AND DRAINING TO GRAVITY. DRESSING ON RT HEEL CHANGED. PICC TO RUE PATENT WITH DRESSING C/D/I. SEE SHIFT ASSESSMENT FOR FULL ASSESSMENT.
[2024-04-23] VITALS (21 sets, daily range): BP systolic 104–155; BP diastolic 73–130
[2024-04-23 04:46] LABS: BASOPHILS ABSOLUTE AUTO 0.03 K/mm3 (0.00-0.23); BASOPHILS PERCENT AUTO 1 % (0-2); EOSINOPHILS ABSOLUTE AUTO 0.15 K/mm3 (0.00-0.68); EOSINOPHILS PERCENT AUTO 3 % (0-6); Hematocrit 46.3 % (37.0-53.0); Hemoglobin 15.4 g/dL (13.5-17.5); IMMATURE GRAN ABSOLUTE AUTO 0.01 K/mm3 (0.00-0.10); IMMATURE GRAN PERCENT AUTO 0 % (0-1); LYMPHOCYTES ABSOLUTE AUTO 1.32 K/mm3 (0.84-5.20); LYMPHOCYTES PERCENT AUTO 24 % (21-46); MONOCYTES ABSOLUTE AUTO 0.84 K/mm3 (0.16-1.47); MONOCYTES PERCENT AUTO 15 % (4-13); Mean Corpuscular HGB 32.8 pg (26.0-34.0); Mean Corpuscular HGB Conc 33.3 g/dL (31.5-36.5); Mean Corpuscular Volume 99 fL (80-100); Mean Platelet Volume 11.3 fL (9.1-12.4); NEUTROPHILS ABSOLUTE AUTO 3.24 K/mm3 (1.96-9.15); NEUTROPHILS PERCENT AUTO 58 % (41-73); Platelet Count 164 K/mm3 (150-400); Red Blood Cell Count 4.69 M/mm3 (4.30-5.90); White Blood Cell Count 5.59 K/mm3 (4.00-11.30)
[2024-04-23 05:13] LABS: Bun/Creatinine Ratio 31.6 (12.0-20.0); Calcium, Blood 8.7 mg/dL (8.5-10.1); Creatinine, Blood 0.73 mg/dL (0.60-1.20); Magnesium, Blood 2.3 mg/dL (1.6-2.4); Phosphorus, Blood 3.2 mg/dL (2.5-4.9); Potassium, Blood 3.3 mmol/L (3.5-5.5)
[2024-04-23] MEDS ORDERED: Potassium Chloride 40 MEQ in NS 250 ML IV ONE (06:00)
--- NOTE | 2024-04-23 06:54 | NUR ---
END OF SHIFT SUMMARY NO ACUTE EVENTS OVERNIGHT. PROPOFOL PLACED ON SB AROUND 0000, HE NOW OPENS HIS EYES AND BLINKS MORE BUT DOES NOT TRACK OR FOLLOW DIRECTIONS; PRN FENTANYL GIVEN ONCE FOR CPOT OF 3, NOW CPOT 0. VENT SETTINGS AC/VC 14/520/5/30%. AFEBRILE. AFIB NOTED WITH RATE 70-120'S. SBP 90-150'S. VITAL AF INFUSING AT GOAL; RECTAL TUBE IN PLACE WITH BROWN LIQUID STOOL. AGUILAR IN PLACE WITH 1100ML OUTPUT. CALL MADE TO DR HART REGARDING AM POTASSIUM OF 3.3; NEW ORDERS PROVIDED FOR 40MEQ OF KCL. PICC TO MARY DRESSING C/D/I. WILL REPORT TO AM RN WHEN AVAILABLE.
--- NOTE | 2024-04-23 09:44 | NUR ---
AM NOTE... ASSUMED CARE OF PT AT 0700, PT IS INTUBATED ON AC/VC: 14/520/5/30% WITH O2 SATS>95% L/S CLEAR T/O DIM IN THE BASES. PROPOFOL HAS BEEN OFF, PT OPENS HIS EYES AND WAS ABLE TO SQUEEZE HANDS TO COMMAND. HE CONTINUES TO BE IN AFIB W/BBB IN THE 100'S-120'S BP IS STABLE. OG TUBE IS CLAMPED FOR POSSIBLE EXTUBATION. RECTAL TUBE IS PATENT AND DRAINING LIQUID BROWN STOOLS TO GRAVITY. AGUILAR IS PATENT AND DRAINING TO GRAVITY. WILL CONITNUE TO MONITOR.
[2024-04-23] MEDS ORDERED: Alteplase Recombinant 2 MG / Vial IV ONE (09:50)
[2024-04-23] MEDS ORDERED: FentaNYL Citrate 50 MCG/ML 2 ML Injection IV PRN (12:45)
[2024-04-23] MEDS ORDERED: Furosemide 10 MG/ML 4ML Vial IV SCH (13:00)
--- NOTE | 2024-04-23 13:46 | NUR ---
RIGHT HEEL BLISTER.... PT NOTED TO HAVE A BLISTER ON HIS RIGHT HEEL, PICTURES IN THE CHART AND DR. CORRAL NOTIFIED. WILL CONTINUE TO MONITOR.
[2024-04-23] MEDS ORDERED: CefTRIAXone Sodium 1,000 MG in NS 100 ML IV SCH (16:00)
[2024-04-23] MEDS ORDERED: Rivaroxaban 10 MG Tab PT SCH (18:00)
--- NOTE | 2024-04-23 18:03 | NUR ---
SHIFT SUMMARY.... NO ACUTE NEGATIVE CHANGES NOTED THIS SHIFT. PT HAS BEEN OFF SEDATION SINCE 2400, PT WILL OPEN HIS EYES, BLINK AND SOMETIMES FOLLOW MOVEMENT. PT DOES NOT WITHDRAW FROM PAIN, MOVES ALL EXTREMITIES. PER DR. CORRAL REDUCE SEDATION MUCH POSSIBLE. TUBE FEEDS RUNNING PER ORDERS. PT'S RECTAL TUBE HAD 250MLS OUT THIS SHIFT. PT WAS TURNED Q2HRS. HIS BROTHER CALLED AND WAS UPDATED ON THE PT'S CONDITION AND PLAN OF CARE. THE RED PORT ON THE PT'S PICC LINE WAS NOTED TO NOT DRAW BLOOD, THIS RN PUSHED CATH FLOW AND THIS HELPED SLIGHTLY BUT THE PT'S PICC LINE WAS NOTED TO BE IN THE AZYGOS VEIN PER CHEST XRAY THIS AM, THE PICC LINE WAS PULLED OUT 3CM PER DR. CORRAL. CURRENTLY 10CM IS OUT ON THE PICC LINE. ALL PORTS NOW DRAW. WILL CONTINUE TO MONITOR UNTIL REPORT IS GIVEN TO ONCOMING RN.
[2024-04-23] MEDS ORDERED: Magnesium Hydroxide Conc 10 ML UDC PT PRN (19:41)
--- NOTE | 2024-04-23 20:00 | NUR ---
ASSUMED CARE OF PT AT 1900. REPORT RECEIVED AT BEDSIDE. PT PRESENTS IN BED. INTUBATED. AC 14, Tv 520, FIO2 30% PEEP 5.0 PT MAINTAINS SATURATIONS >90 PERCENT WITH CURRENT SETTINGS. TUBE FEEDING AT GOAL. VITAL AF 30/HOUR, WITH 160 H20 PER [address] DRAINS LIQUID BROWN STOOL. HAVE SUCTIONED PT PER ETT WITH RETURN OF THIN WHITE SECRETIONS. PT DOES HAVE COUGH REFLEX WHICH IS MODERATELY STRONG. WILL REVIEW CHART AND PLAN OF CARE FOR THIS PT.
[2024-04-23] MEDS ORDERED: Metoprolol Tartrate 50 MG Tab PT SCH (21:00)
[2024-04-23] MEDS ORDERED: Sacubitril/Valsartan 24 MG-26 MG Tab PO SCH ×2 (21:00)
[2024-04-23] MEDS ORDERED: Lactobacil 2-S.Thermo-Bifido 1 1 Cap PT SCH (21:00)
[2024-04-23] MEDS ORDERED: Potassium Chloride 20 MEQ/15 ML UDC PT SCH (21:00)
[2024-04-24] VITALS (16 sets, daily range): BP systolic 84–166; BP diastolic 64–136
[2024-04-24 04:51] LABS: BASOPHILS ABSOLUTE AUTO 0.05 K/mm3 (0.00-0.23); BASOPHILS PERCENT AUTO 1 % (0-2); EOSINOPHILS ABSOLUTE AUTO 0.14 K/mm3 (0.00-0.68); EOSINOPHILS PERCENT AUTO 3 % (0-6); Hematocrit 45.2 % (37.0-53.0); Hemoglobin 14.9 g/dL (13.5-17.5); IMMATURE GRAN ABSOLUTE AUTO 0.02 K/mm3 (0.00-0.10); IMMATURE GRAN PERCENT AUTO 0 % (0-1); LYMPHOCYTES ABSOLUTE AUTO 1.81 K/mm3 (0.84-5.20); LYMPHOCYTES PERCENT AUTO 34 % (21-46); MONOCYTES ABSOLUTE AUTO 0.77 K/mm3 (0.16-1.47); MONOCYTES PERCENT AUTO 14 % (4-13); Mean Corpuscular Volume 100 fL (80-100); NEUTROPHILS ABSOLUTE AUTO 2.57 K/mm3 (1.96-9.15); NEUTROPHILS PERCENT AUTO 48 % (41-73); Platelet Count 215 K/mm3 (150-400); RDW Coefficient Variation 15.8 % (11.7-14.2); RDW Standard Deviation 59.3 fL (35.1-46.3); Red Blood Cell Count 4.51 M/mm3 (4.30-5.90); White Blood Cell Count 5.36 K/mm3 (4.00-11.30)
[2024-04-24 05:09] LABS: Albumin, Blood 2.3 g/dL (3.4-5.0); Anion Gap 10 mmol/L (3-11); Blood Urea Nitrogen 26 mg/dL (8-24); Bun/Creatinine Ratio 32.5 (12.0-20.0); CO2, Blood 25 mmol/L (21-32); Calcium, Blood 8.5 mg/dL (8.5-10.1); Chloride, Blood 123 mmol/L (98-108); Glomerular Filtration Rate 99 (60-); Glucose, Blood 104 mg/dL (70-99); Phosphorus, Blood 2.9 mg/dL (2.5-4.9); Potassium, Blood 3.6 mmol/L (3.5-5.5); Sodium, Blood 154 mmol/L (136-145)
--- NOTE | 2024-04-24 05:13 | NUR ---
DID MEDICATE PT WITH 50 MCG'S FENTANYL FOR VENT TOLERANCE. THIS AFFECTIVE. PT'S PICC LINE UNFORTUNATELY WOULD NOT ADEQUATELY RETURN BLOOD FOR LAB. DID START 18 GAUGE IV IN LEFT WRIST AND WAS ABLE TO DRAW AM LABS. HAVE SUCTIONED PT WITH RETURN OF MODERATE AMOUNT WHITE COLORED SECRETIONS. PT HAS TOLERATED Q 2 HOUR TURNS IN BED WELL FULL BEDBATH. WILL CONTINUE TO MONITOR PT, AND WILL REPORT OFF TO ONCOMING RN.
[2024-04-24] MEDS ORDERED: Folic Acid 1 MG TAB PT SCH (09:00)
[2024-04-24] MEDS ORDERED: Thiamine HCl 100 MG Tab PT SCH (09:00)
[2024-04-24] MEDS ORDERED: Digoxin 0.25 MG/ML 2ML Amp IV SCH ×2 (09:15→12:00)
[2024-04-24] MEDS ORDERED: Dextrose 5% 1,000 ML IV SCH (10:00)
[2024-04-24] MEDS ORDERED: Carvedilol 6.25 MG Tab PT SCH ×2 (10:00→10:03)
[2024-04-24] MEDS ORDERED: Nitroglycerin 1 INCH/GM PKT TOP SCH (12:00)
--- NOTE | 2024-04-24 18:18 | NUR ---
SUMMARY PT INTUBATED, NO SEDATION. OPENS EYE'S, RECREATION MANAGER HANDS VERY WEAK. DROWSY. DR. CORRAL ADJUSTED SOME OF THE CARDIAC MEDS TODAY. PT WILL BE HYPERTENSIVE AT TIMES. THIS AM HR 130'S BEFORE METOPROLOL THEN SETTLED TO 80'S-100. D5 IVF ADDED TODAY FOR INCREASING SODIUM LEVEL. NO OTHER CHANGES THIS SHIFT.
[2024-04-24] MEDS ORDERED: Lactulose 20 GM/30 ML UDC PT SCH (21:00)
--- NOTE | 2024-04-24 21:37 | NUR ---
ASSUMED CARE OF PT AT 1900. REPORT RECEIVED AT BEDSIDE. PT PRESENTS IN BED. INTUBATED. AC 14, Tv 520, FIO2 30 %, PEEP 5. PT TOLERATING VENT WELL AT THIS TIME. ABLE TO MAINTAIN > 90 PERCENT SATURATIONS. HAVE SUCTIONED PT PER ETT WITH RETURN OF MODERATE AMOUNT OF THIN WHITE SECRETIONS. PT HAS MODERATE TO STRONG COUGH EFFORT. FLEXISEAL REMAINS TO GRAVITY DRAINAGE WITH RETURN OF LIQUID STOOL. WILL REVIEW CHART AND PLAN OF CARE FOR THIS PT.
[2024-04-25] VITALS (54 sets, daily range): BP systolic 70–179; BP diastolic 54–144
--- NOTE | 2024-04-25 01:46 | NUR ---
FULL BEDBATH DONE FOR PT WITH TOTAL LINEN CHANGE OUT. PT TOLERATES THIS WELL. HAVE MEDICATED PT ONCE WITH FENTANYL 50 MCG'S FOR VENT TOLERANCE WITH GOOD RESULTS. TOLERATING TUBE FEEDING AT GOAL. FLEXISEAL CONTINUES TO DRAIN LIQUID STOOL. HAS LEAKED AT ONE TIME. WILL CONTINUE TO MONITOR.
[2024-04-25 04:21] LABS: BASOPHILS ABSOLUTE AUTO 0.05 K/mm3 (0.00-0.23); BASOPHILS PERCENT AUTO 1 % (0-2); EOSINOPHILS ABSOLUTE AUTO 0.23 K/mm3 (0.00-0.68); EOSINOPHILS PERCENT AUTO 4 % (0-6); Hematocrit 46.4 % (37.0-53.0); IMMATURE GRAN ABSOLUTE AUTO 0.04 K/mm3 (0.00-0.10); IMMATURE GRAN PERCENT AUTO 1 % (0-1); LYMPHOCYTES ABSOLUTE AUTO 2.07 K/mm3 (0.84-5.20); LYMPHOCYTES PERCENT AUTO 32 % (21-46); MONOCYTES PERCENT AUTO 14 % (4-13); Mean Corpuscular HGB 32.6 pg (26.0-34.0); Mean Corpuscular HGB Conc 32.3 g/dL (31.5-36.5); Mean Corpuscular Volume 101 fL (80-100); Mean Platelet Volume 10.8 fL (9.1-12.4); NEUTROPHILS ABSOLUTE AUTO 3.15 K/mm3 (1.96-9.15); NEUTROPHILS PERCENT AUTO 49 % (41-73); Platelet Count 283 K/mm3 (150-400); RDW Coefficient Variation 15.3 % (11.7-14.2); RDW Standard Deviation 57.1 fL (35.1-46.3); White Blood Cell Count 6.44 K/mm3 (4.00-11.30)
[2024-04-25 04:44] LABS: Albumin, Blood 2.4 g/dL (3.4-5.0); Anion Gap 9 mmol/L (3-11); Blood Urea Nitrogen 25 mg/dL (8-24); Bun/Creatinine Ratio 29.5 (12.0-20.0); CO2, Blood 23 mmol/L (21-32); Calcium, Blood 8.8 mg/dL (8.5-10.1); Chloride, Blood 124 mmol/L (98-108); Creatinine, Blood 0.85 mg/dL (0.60-1.20); Glomerular Filtration Rate 97 (60-); Glucose, Blood 115 mg/dL (70-99); Potassium, Blood 3.6 mmol/L (3.5-5.5); Sodium, Blood 152 mmol/L (136-145)
--- NOTE | 2024-04-25 06:12 | NUR ---
PT HAS BEEN MEDICATED TWICE THIS NIGHT WITH 50 MCG FENTANYL FOR VENT TOLERANCE. AT THIS TIME, PT BECOMING MORE FIDGETY IN BED. DEMONSTRATING THAT HE IS NOT TOLERATING VENT WELL. TOO EARLY FOR NEXT DOSE OF FENTANYL. CALL MADE TO DR CORRAL. ONE TIME ORDER OF ATIVAN RECEIVED. WILL ADMINISTER WHEN AVAILABLE. WILL CONTINUE TO MONITOR PT AND WILL REPORT OFF TO ONCOMING RN.
[2024-04-25] MEDS ORDERED: LORazepam 2 MG/ML 1ML Injection IV ONE (06:15)
[2024-04-25] MEDS ORDERED: LORazepam 2 MG/ML 1ML Injection IV PRN (11:00)
--- NOTE | 2024-04-25 14:25 | NUR ---
PT INTUBATED AND SEDATED WITH PROPOFOL. PT WAS AGITATED THIS AM WHILE OFF SEDATION, SWINGING FEET OOB, CONSTANTLY TRYING TO SIT UP, HR 130-150, AND INCREASED BP. PLACED ON PRECEDEX BUT PT STILL WAS NOT CALMING, PLACED ON PROPOFOL PER DR. LOPEZ. WHEN SEDATION WAS OFF PT WAS ABLE TO TRACK, OPEN EYE'S ON COMMAND, AND HAND LEATHER TRIMMER HANDS ON COMMAND. MOD AMT OF WHITE SECRETIONS FROM ETT STILL. D5 IVF STOPPED TODAY AND FREE WATER FLUSH INCREASED ON TF. REPORTING OFF TO YOBANY FUNES WHO WILL ASSUME CARE.
--- NOTE | 2024-04-25 19:47 | NUR ---
ASSUMED CARE OF PT AT 1900. REPORT RECEIVED AT BEDSIDE. PT PRESENTS IN BED. INTUBATED - AC 14, Tv 520, FIO2 30 PERCENT, PEEP 5. PT SWEATY AND COOL SKIN. PT NOTED TO HAVE CUFF LEAK THAT HAS BEEN CORRECTED BY RESPIRATORY THERAPY. MAINTAINS SATURATIONS > 90 PERCENT WITH CURRENT SETTINGS. PROPOFOL FOR SEDATION AT 10 MCG'S/KG/MIN. THIS PROVIDES GOOD VENT TOLERANCE. WILL TITRATE NEEDED. WILL REVIEW CHART AND PLAN OF CARE FOR THIS PT.
--- NOTE | 2024-04-25 21:29 | NUR ---
HAVE PLACED PROPOFOL ON HOLD SECONDARY TO HYPOTENSION. PT ALSO HAS BEEN SWEATY. BLOOD PRESSURES HAVE IMPROVED. PT TOLERATES VENT WELL AT THIS TIME. WILL MONITOR FOR NEED TO RESTART SEDATION.
--- NOTE | 2024-04-25 22:43 | NUR ---
PT REQUIRED STARTING UP PROPOFOL AT 10 MCG'S/KG/MIN. PT BECAME AGITATED. BLOOD PRESSURES BECAME HYPERTENSIVE. TOLERATING TUBE FEEDING AT GOAL. WILL CONTINUE TO MONITOR PT.
[2024-04-26] VITALS (89 sets, daily range): BP systolic 75–173; BP diastolic 47–138
[2024-04-26 04:05] LABS: BASOPHILS ABSOLUTE AUTO 0.05 K/mm3 (0.00-0.23); BASOPHILS PERCENT AUTO 1 % (0-2); EOSINOPHILS ABSOLUTE AUTO 0.29 K/mm3 (0.00-0.68); EOSINOPHILS PERCENT AUTO 4 % (0-6); Hematocrit 44.1 % (37.0-53.0); Hemoglobin 14.5 g/dL (13.5-17.5); IMMATURE GRAN ABSOLUTE AUTO 0.07 K/mm3 (0.00-0.10); IMMATURE GRAN PERCENT AUTO 1 % (0-1); LYMPHOCYTES ABSOLUTE AUTO 1.32 K/mm3 (0.84-5.20); LYMPHOCYTES PERCENT AUTO 19 % (21-46); MONOCYTES ABSOLUTE AUTO 0.62 K/mm3 (0.16-1.47); MONOCYTES PERCENT AUTO 9 % (4-13); Mean Corpuscular HGB 33.3 pg (26.0-34.0); Mean Corpuscular HGB Conc 32.9 g/dL (31.5-36.5); Mean Corpuscular Volume 101 fL (80-100); Mean Platelet Volume 10.7 fL (9.1-12.4); NEUTROPHILS ABSOLUTE AUTO 4.79 K/mm3 (1.96-9.15); NEUTROPHILS PERCENT AUTO 67 % (41-73); Platelet Count 331 K/mm3 (150-400); RDW Standard Deviation 56.4 fL (35.1-46.3); Red Blood Cell Count 4.36 M/mm3 (4.30-5.90); White Blood Cell Count 7.14 K/mm3 (4.00-11.30)
[2024-04-26 04:22] LABS: Albumin, Blood 2.4 g/dL (3.4-5.0); Anion Gap 7 mmol/L (3-11); Blood Urea Nitrogen 43 mg/dL (8-24); Bun/Creatinine Ratio 34.7 (12.0-20.0); CO2, Blood 24 mmol/L (21-32); Calcium, Blood 8.9 mg/dL (8.5-10.1); Chloride, Blood 122 mmol/L (98-108); Creatinine, Blood 1.24 mg/dL (0.60-1.20); Glomerular Filtration Rate 65 (60-); Glucose, Blood 104 mg/dL (70-99); Magnesium, Blood 2.2 mg/dL (1.6-2.4); Phosphorus, Blood 4.1 mg/dL (2.5-4.9); Potassium, Blood 3.9 mmol/L (3.5-5.5); Sodium, Blood 149 mmol/L (136-145)
--- NOTE | 2024-04-26 05:36 | NUR ---
PT CONTINUES ON 10 MCG'S/KG/MIN PROPOFOL FOR SEDATION WITH GOOD RESULTS. PT TOLERATES VENT WELL WITH THIS. HAS HAD FULL BEDBATH THIS NIGHT. NO NEW ISSUES TO REPORT. FLOATED HEELS SECONARY TO OLD BLISTER ON RIGHT HEEL. HAS BEEN SUCTIONED OCCASSIONALLY WITH RETURN OF THIN WHITE SECRETIONS FROM ETT. WILL CONTINUE TO MONITOR PT, AND WILL REPORT OFF TO ONCOMING RN.
--- NOTE | 2024-04-26 07:15 | NUR ---
ASSUMPTION OF CARE: ASSUMED CARE OF PATIENT. PATIENT RESTING CALMLY IN THE BED. PATIENT ROUSES TO PAINFUL STIMULI. AGUILAR IN PLACE AND DRAINING FREE. RECTAL TUBE IN PLACE AND DRAINING FREELY. VITAL SIGNS STABLE WITH SBP IN THE 90S AND MAPS >65. VENT SETTINGS AC/VC PLUS 14/520/5/30%. SPO2 >90%. PATIENT TOLERATING THE VENT. PROPOFOL AT 10 MCG/KG/HR.
--- NOTE | 2024-04-26 09:10 | NUR ---
SEDATION INTERRUPTION: PROPOFOL STOPPED AT 09:10. PATIENT CALM IN THE BED THIS MORNING. PATIENT TOLERATING VENT. NO AGITATION NOTED THIS AM.
--- NOTE | 2024-04-26 12:50 | NUR ---
SPONTANOUS: PATIENT CONTINUES TO BE OFF OF PROPOFOL. NO AGITATION NOTED. PATIENT TOLERATING THE VENT. PATIENT WILL SQUEEZE RIGHT HAND AND OPEN EYES UPON REQUEST. PATIENT APPEARS TO HAVE ATTEMPTED TO OPEN MOUTH UPON COMMAND. PATIENT DR. HENRY AT BEDSIDE. PATIENT TRANSITIONED TO SPONTAEOUS 10/5/30%. PATIENT TOLERATING WELL.
--- NOTE | 2024-04-26 19:03 | NUR ---
LOW BLOOD PRESSURES: PATIENT HAVING SOME LOW BPS WITH SBP IN THE 70S AND MAPS FROM 58-65. DISCUSSED WITH DR. LOPEZ. PATIENT HAD RECEIVED SCHEDULED NITRO PASTE ABOUT 1 HOUR PRIOR. PER ORDERS, NITRO PASTE WIPED FROM THE CHEST. CONTINUING TO MONITOR.
--- NOTE | 2024-04-26 19:04 | NUR ---
SHIFT SUMMARY: NEURO: PATIENT WAS OFF SEDATION THROUGHOUT THE SHIFT. PATIENT ABLE TO WEAKLY AND WITH A DELAY RESPONSE FOLLOW SOME DIRECTIONS (SUCH SQUEEZE HAND, TRACK RN AND ATTEMPT TO LIFT RIGHT ARM). PATIENT MOVING ALL 4 LIMBS WEAKLY AND INDEPENDENTLY. RESPIRATORY: PATIENT ON SPONTANEOUS STARTING AT 12:50. PATIENT TOLERATED WELL FOR THE REST OF THE SHIFT. RR IN THE MID 20S. TIDAL VOLUMES AROUND 500-550 ML. PATIENT DID NOT APPEAR TO BE IN ANY RESPIRATORY DISTRESS. SETTINGS SPONT 10/5/30%. SPO2 >90%. CARDIAC: PATIENT CONTINUED TO BE IN AFIB WITH RATE ANYWHERE FROM 80S-110S. PATIENT HAD STABLE VITAL SIGNS FOR THE MAJORITY OF THE DAY WITH SBP IN THE 100S-130S. MAPS >65. AT THE END OF SHIFT, PATIENT STARTED TO HAVE LOW BPS (SEE NURSE'S NOTE) WITH SBP IN THE 70S AND MAPS 58-65. IMPROVEMENT NOTED AFTER NITRO PASTE WIPED OFF OF THE PATIENT'S CHEST. GI/: RECTAL TUBE IN PLACE AND DRAINING FREELY YELLOW/BROWN LIQUID STOOL. AGUILAR IN PLACE AND DRAINING FREELY CLEAR, YELLOW URINE. NO FOUL ODOR NOTED. PATIENT DIURESED WELL AFTER SCHEDULED LASIX. PSYCHSOCIAL: PATIENT CALM IN THE ROOM. PATIENT IS MOVING LIMBS FREELY, BUT NO AGITATION NOTED. UPDATED PATIENT'S BROTHER MARVIN (HE IS LISTED ON THE FACESHEET). DECLINED UPDATE TO OTHER CALLS FROM FRIENDS RELATED TO LACK OF GRACIELA.
[2024-04-27] VITALS (89 sets, daily range): BP systolic 81–188; BP diastolic 62–168
[2024-04-27] MEDS ORDERED: Miconazole Nitrate 2% 85 GM PWD TOP SCH (00:05)
[2024-04-27 04:51] LABS: BASOPHILS ABSOLUTE AUTO 0.07 K/mm3 (0.00-0.23); BASOPHILS PERCENT AUTO 1 % (0-2); EOSINOPHILS PERCENT AUTO 4 % (0-6); Hematocrit 43.2 % (37.0-53.0); Hemoglobin 14.5 g/dL (13.5-17.5); IMMATURE GRAN ABSOLUTE AUTO 0.05 K/mm3 (0.00-0.10); IMMATURE GRAN PERCENT AUTO 1 % (0-1); LYMPHOCYTES ABSOLUTE AUTO 1.55 K/mm3 (0.84-5.20); LYMPHOCYTES PERCENT AUTO 18 % (21-46); MONOCYTES ABSOLUTE AUTO 0.79 K/mm3 (0.16-1.47); MONOCYTES PERCENT AUTO 9 % (4-13); Mean Corpuscular HGB 33.3 pg (26.0-34.0); Mean Corpuscular HGB Conc 33.6 g/dL (31.5-36.5); Mean Corpuscular Volume 99 fL (80-100); Mean Platelet Volume 10.9 fL (9.1-12.4); NEUTROPHILS ABSOLUTE AUTO 5.74 K/mm3 (1.96-9.15); NEUTROPHILS PERCENT AUTO 68 % (41-73); Platelet Count 360 K/mm3 (150-400); RDW Coefficient Variation 14.6 % (11.7-14.2); RDW Standard Deviation 53.4 fL (35.1-46.3); Red Blood Cell Count 4.36 M/mm3 (4.30-5.90)
[2024-04-27 05:25] LABS: Creatinine, Blood 0.83 mg/dL (0.60-1.20); Magnesium, Blood 2.1 mg/dL (1.6-2.4); Phosphorus, Blood 2.6 mg/dL (2.5-4.9); Potassium, Blood 3.9 mmol/L (3.5-5.5)
--- NOTE | 2024-04-27 06:16 | NUR ---
SHIFT SUMMARY PATIENT SLEPT OFF AND OFF, STARTED PROPOFOL AT 13MCGH/KG/MIN TO HELP THE RESTLESSNESS, UNABLE TO FOLLOW COMMANDS, ON SPON VENT 10/5/30%, AGUILAR DRAINING TO GRAVITY, RECTAL TUBE IN PLACED DRAINING TO GRAVITY, PAS STOCKING ON BILATERAL LEGS, SOFT WRIST RESTRAINTS BILATERAL. LUNGS CLEAR, HR IN THE 105-110'S, SBP 130-140'S. WILL CONTINUE TO MONITOR UNTIL REPORT IS GIVEN TO ONCOMING NURSE.
--- NOTE | 2024-04-27 07:15 | NUR ---
ASSUMPTION OF CARE: ASSUMED CARE OF PATIENT. PATIENT RESTING SOUNDLY IN THE BED. LIMBS ARE CALM AND PATIENT IS TOLERATING THE VENT. PATIENT ON SPONTANEOUS 10/5/30%. RR IN THE MID TO HIGH 20S. TIDAL VOLUMES 400-500S. SPO2>90%. NO RESPIRATORY DISTRESS NOTED. VITALS STABLE WITH HR IN THE LOW 100S-110S, MAPS >65. AGUILAR IN PLACE AND DRAINING FREELY. RECTAL TUBE IN PLACE AND DRAINING FREELY.
[2024-04-27] MEDS ORDERED: CeFAZolin Sodium 1,000 MG in NS 50 ML IV SCH (12:00)
--- NOTE | 2024-04-27 19:06 | NUR ---
SHIFT SUMMARY: NEURO: PATIENT AWAKE TODAY, BUT DID NOT FOLLOW DIRECTIONS OR ANSWER QUESTIONS THROUGHOUT THE SHIFT. PATIENT MOVING ALL LIMBS INDEPENDENTLY. PATIENT UP TO THE CHAIR THIS AFTERNOON FOR ABOUT 1.5 HOURS. PATIENT TOLERATED WELL. MEDICATED FOR DISCOMFORT WITH TYLENOL ONCE TODAY. PROPROFOL ON SB STARTING AROUND 09:00. RESPIRATORY: PATIENT ON SPONTANEOUS 10/5/30% THROUGHOUT THE SHIFT. PATIENT RR IN THE MID TO HIGH 20S. TIDAL VOLUMES 400-500. PATIENT HAD A LARGER AMOUNT OF SECRETIONS COMPARED TO YESTERDAY. SECRETIONS THIN, WHITE/YELLOW. CARDIAC: PATIENT'S BLOOD PRESSURES MOSTLY IN THE 110S-130S. FOR SHORT PERIODS OF TIME, PATIENTS SBP WILL BE IN THE 90S. MAPS >65 THROUGHOUT. HR PRIMARILY IN THE 100-110S. AFIB THROUGHOUT THE DAY. GI/: RECTAL TUBE IN PLACE AND DRAINING FREELY YELLOW/BROWN STOOL. AGUILAR IN PLACE AND FREELY DRAINING CLEAR YELLOW URINE. NO FOUL ODOR NOTED. PSYCHSOCIAL: PATIENT CALM WITH STAFF. PATIENT MOVING LIMBS, BUT DID NOT DISPLAY AGITATION DURING THE SHIFT.
--- NOTE | 2024-04-27 20:11 | NUR ---
ASSUMED CARE PATIENT IN BED ON SPONATANOUS VENT 10//30%. PULLING LEGS UP, UNABLE TO FOLLOW COMMANDS. BITING ON TUBE AND MOVING HEAD AROUND, PRN MED GIVEN TO HELP MAKE HIM COMFORTABLE. AGUILAR PATENT AND DRAINING TO GRAVITY, RECTAL TUBE DRAINING TO GRAVITY. HR IN THE 80'S, SBP 90-100'S.
[2024-04-28] VITALS (27 sets, daily range): BP systolic 75–138; BP diastolic 59–110
[2024-04-28 04:43] LABS: BASOPHILS ABSOLUTE AUTO 0.05 K/mm3 (0.00-0.23); BASOPHILS PERCENT AUTO 1 % (0-2); EOSINOPHILS ABSOLUTE AUTO 0.26 K/mm3 (0.00-0.68); EOSINOPHILS PERCENT AUTO 4 % (0-6); Hematocrit 40.2 % (37.0-53.0); Hemoglobin 13.7 g/dL (13.5-17.5); IMMATURE GRAN ABSOLUTE AUTO 0.08 K/mm3 (0.00-0.10); IMMATURE GRAN PERCENT AUTO 1 % (0-1); LYMPHOCYTES ABSOLUTE AUTO 1.31 K/mm3 (0.84-5.20); LYMPHOCYTES PERCENT AUTO 18 % (21-46); MONOCYTES ABSOLUTE AUTO 0.69 K/mm3 (0.16-1.47); MONOCYTES PERCENT AUTO 10 % (4-13); Mean Corpuscular HGB 33.7 pg (26.0-34.0); Mean Corpuscular HGB Conc 34.1 g/dL (31.5-36.5); Mean Corpuscular Volume 99 fL (80-100); Mean Platelet Volume 10.7 fL (9.1-12.4); NEUTROPHILS ABSOLUTE AUTO 4.78 K/mm3 (1.96-9.15); NEUTROPHILS PERCENT AUTO 67 % (41-73); Platelet Count 366 K/mm3 (150-400); RDW Coefficient Variation 14.6 % (11.7-14.2); RDW Standard Deviation 53.2 fL (35.1-46.3); Red Blood Cell Count 4.07 M/mm3 (4.30-5.90); White Blood Cell Count 7.17 K/mm3 (4.00-11.30)
[2024-04-28 04:59] LABS: Bun/Creatinine Ratio 39.2 (12.0-20.0); Calcium, Blood 8.7 mg/dL (8.5-10.1); Creatinine, Blood 0.77 mg/dL (0.60-1.20); Magnesium, Blood 2.1 mg/dL (1.6-2.4); Potassium, Blood 4.2 mmol/L (3.5-5.5)
--- NOTE | 2024-04-28 06:21 | NUR ---
SHIFT SUMMARY PATIENT RESTING THROUGH OUT NIGHT AFTER PROPOFOL WAS STARTED AT 15MCG/KG/MIN, VENT SETTING AT SIMV /// 5 PEEP 30% FOR ABOUT 4 HOURS, NOW ON SPONT 14//30%. HAD BEDBATH AND TOERALTED WELL. HR IN THE 80-90'S SBP 120-130'S. AGUILAR PATENT AND DRAINING TO GRAVITY AND RECTAL TUBE DRAINING TO GRAVITY. PATIENT ABLE TO OPEN EYES BUT NOT FOLLOW ANY COMMANDS. WILL CONTINUE TO MONITOR.
--- NOTE | 2024-04-28 07:22 | NUR ---
AM NOTE... ASSUMED CARE OF PT AT 0700, PT IS INTUBATED AND SEDATED ON PROPOFOL AT 20MCG/KG THIS WAS STOPPED AT THE TIME OF THIS ASSESSMENT. PT'S RASS WAS -2 AT THIS TIME. PT'S ET TUBE IS 8.0 AND 24 AT THE TEETH, VENT SETTINGS SP: 14/6 AND 30% WITH O2 SATS>95% L/S CLEAR T/O DIM IN THE BASES RR 16-20. PT IS IN AFIB W/BBB AND OCC PVCs IN THE 90'S-110'S, BP IS SOFT BUT MAPS ARE >65, TRACE EDEMA IS NOTED TO HIS BLE AND FEET. PT'S OG TUBE IS PATENT AND RUNNING TUBE FEED AT GOAL OF 30MLS/HR WITH 200MLS Q4HR WATER FLUSHES. BT PRESENT AND HYPERACTIVE, ABD HAS MILD DISTENTION AND IS SOFT TO PALPATION. RECTAL TUBE IS PATENT AND DRAINING LIQUID BROWN STOOL TO GRAVITY. WILL CONTINUE TO MONITOR.
--- NOTE | 2024-04-28 18:10 | NUR ---
SHIFT SUMMARY.... NO ACUTE NEGATIVE CHANGES NOTED THIS SHIFT. PT'S VS HAVE BEEN STABLE. PT WAS UP IN THE CHAIR FOR APROX 3 HRS THIS AFTERNOON. HE HAS BEEN OFF PROPOFOL SINCE APROX 0700, HE IS AWAKE AND PULLING ON THE RESTRAINTS AND ATTEMPTING TO PULL THE ET TUBE OUT BUT WILL NOT FOLLOW ANY COMMANDS. THE PT'S RECTAL TUBE IS PATENT AND DRAINING LIQUID BROWN STOOL TO GRAVITY. WILL CONTINUE TO MONITOR UNTIL REPORT IS GIVEN TO ONCOMING RN.
--- NOTE | 2024-04-28 19:00 | NUR ---
ASSUME CARE OF PT AT 1900. PT RESTING ON BED AND IS MOVING LEGS TOWARD SIDE OF BED. REPOSITIONED AND REORIENTED TO SITUATION. PT MAKING EYE CONTACT AT THIS TIME, BUT IS NOT FOLLOWING SIMPLE COMMANDS. OCCASIONAL GRIMACE OBSERVED. PT IS INTABATED ON SPONT, SETTINGS; 14/6/30%. NO SEDATION AT THIS TIME. LUNGS CLEAR W/ LARGE AMOUNT OF WRAY SECRETIONS BEING SUCTIONED. PT ON CONTINOUS GRIP BOSS, AFIB RATE OF 80S OBSERVED. BP STABLE. PT HAS PICC LINE TO [facility], ALL LUMENS SALINE LOCKED AND CAPPED. POSITIVE BLOOD RETURN NOTED. RECTAL TUBE DRAINING LIQUID BROWN STOOL TO GRAVITY. AGUILAR CATH PATENT AND DRAINING YELLOW URINE TO GRAVITY. CARE CONTINUES .
[2024-04-29] VITALS (28 sets, daily range): BP systolic 89–157; BP diastolic 63–139
[2024-04-29 04:06] LABS: BASOPHILS ABSOLUTE AUTO 0.05 K/mm3 (0.00-0.23); BASOPHILS PERCENT AUTO 1 % (0-2); EOSINOPHILS ABSOLUTE AUTO 0.24 K/mm3 (0.00-0.68); EOSINOPHILS PERCENT AUTO 4 % (0-6); Hematocrit 42.2 % (37.0-53.0); IMMATURE GRAN ABSOLUTE AUTO 0.06 K/mm3 (0.00-0.10); IMMATURE GRAN PERCENT AUTO 1 % (0-1); LYMPHOCYTES ABSOLUTE AUTO 1.36 K/mm3 (0.84-5.20); LYMPHOCYTES PERCENT AUTO 21 % (21-46); MONOCYTES ABSOLUTE AUTO 0.47 K/mm3 (0.16-1.47); MONOCYTES PERCENT AUTO 7 % (4-13); Mean Corpuscular HGB Conc 33.2 g/dL (31.5-36.5); Mean Corpuscular Volume 100 fL (80-100); Mean Platelet Volume 10.7 fL (9.1-12.4); NEUTROPHILS ABSOLUTE AUTO 4.25 K/mm3 (1.96-9.15); NEUTROPHILS PERCENT AUTO 66 % (41-73); Platelet Count 383 K/mm3 (150-400); RDW Coefficient Variation 14.5 % (11.7-14.2); RDW Standard Deviation 53.1 fL (35.1-46.3); Red Blood Cell Count 4.24 M/mm3 (4.30-5.90); White Blood Cell Count 6.43 K/mm3 (4.00-11.30)
[2024-04-29 04:25] LABS: Bun/Creatinine Ratio 39.9 (12.0-20.0); Calcium, Blood 8.9 mg/dL (8.5-10.1); Creatinine, Blood 0.65 mg/dL (0.60-1.20); Potassium, Blood 3.7 mmol/L (3.5-5.5)
--- NOTE | 2024-04-29 05:02 | NUR ---
END OF SHIFT SUMMARY No acute events during shift. Pt remained off of sedation- did require prn doses of fentanyl for pain management. Pt asked yes or no questions, such as "are you in pain?", "would you like medication for your pain?" and pt was able to nod head 'yes'. Pt making sustained eye contact and tracking during interventions. Does not squeeze hands or move extremities on command. Continues to occassionally pull against restraints and is moving lower limbs towards side of bed. Pt remains on vent, settings: spont- 14/6/30%. Continues to have large amounts of secretions suctioned from ett. Pt hr currently 110-130s, afib. SBP 130s. Tube feeding running at goal w/ 170ml flushes q2 hours. Collins cath remains patent and draining yellow urine to gravity. Rectal tube was dislodged by pt during shift and replaced by this RN, pt tolerated well. Pt elan-area is excoriated, generous amounts of barrier cream applied. Pt recieved bed bath. Plan of care ongoing.
--- NOTE | 2024-04-29 07:50 | NUR ---
ASSUMED CARE: REPORT RECEIVED FROM MACHO Hensley RN. ASSUMED CARE OF THIS PT AT APPROX 0700. ON ASSESSMENT, THE PT IS INTUBATED & RESTLESS, RASS +1/+2. PRN MEDS PER EMAR. LS COARSE T/O, MINIMAL SECRETIONS SUCTIONED THROUGH ETT. VENT SETTINGS: SPONT W/ PS 14/6 & 30% FIO2, O2 SATS > 95%. MONITOR SHOWS AFIB W/ HR 110-130s, INCREASED W/ AGITATION. BP STABLE. OGT IN PLACE W/ TUBE FEEDS INFUSING AT GOAL RATE, RECTAL TUBE PATENT/ DRAINING BROWN-ORANGE LIQUID STLS. AGUILAR PATENT/ DRAINING YELLOW URINE. SKIN CONDITION OVERALL DIAPHORETIC, INTACT. Q2H REPOSITIONING TO MAINTAIN SKIN INTEGRITY. THIS RN HAS REPLACED PILLOW UNDER EXTREMITIES MULTIPLE TIMES & PT CONTINUES TO KICK THEM OUT & REST HEELS DIRECTLY ON BED, WILL CONTINUE REPOSITIONING PRN. WILL CONTINUE TO MONITOR & UPDATE NEEDED.
[2024-04-29] MEDS ORDERED: HYDROmorphone HCl/Pf 1MG SYR ONE (11:46)
[2024-04-29] MEDS ORDERED: Spironolactone 12.5 MG TAB PT SCH (14:00)
[2024-04-29] MEDS ORDERED: Empagliflozin 10 MG TAB XX SCH (14:00)
[2024-04-29] MEDS ORDERED: FentaNYL Citrate 50 MCG/ML 2 ML Injection IV PRN (16:30)
--- NOTE | 2024-04-29 17:06 | NUR ---
SHIFT SUMMARY: NO ACUTE CHANGES SINCE PRIOR UPDATES. PT IS AWAKENING MORE & ABLE TO FOLLOW SOME SIMPLE DIRECTIONS AT THIS TIME. HE RESPONDS WELL TO VERBAL REASSURANCE WHEN BECOMING AGITATED & PRN MEDS GIVEN PER EMAR. LS COARSE, DIM IN BASES. SMALL AMNTS THIN WHITE-CLEAR SECRETIONS SUCTIONED THROUGH ETT. VENT SETTINGS: SPONT W/ PS 10, PEEP 6 & 30% FIO2, O2 SATS > 95%. MONITOR SHOWS AFIB W/ HR 90-120s, BP STABLE. OGT IN PLACE W/ TUBE FEEDS INFUSING AT GOAL RATE. FREE WATER FLUSHED INCREASED TO 200 ML Q2H FOR PERSISTANT HYPERNATREMIA. RECTAL TUBE PATENT/ DRAINING BROWN-ORANGE LIQUID STLS. AGUILAR PATENT/ DRAINING YELLOW URINE. SKIN CONDITION OVERALL UNCHANGED THIS SHIFT, DIAPHORETIC W/ INCREASED AGITATION. Q2H REPOSITIONING TO MAINTAIN SKIN INTEGRITY. WILL CONTINUE TO MONITOR & REPORT OFF TO ONCOMING RN.
--- NOTE | 2024-04-29 19:00 | NUR ---
Assumed care of pt at 1900 Pt resting on bed, appears calm but is moving feet and legs toward side of bed. Rouses briefly to voice and makes eye contact. Pt on vent- spont: ps 10/ peep 6/ 30% fio2. Pt lungs coarse w/ large amounts of secretions being suctioned via ett. Afib rate of 90-100s observed via continuous monitor, bp stable. OG in place and is infusing tube feed @ goal rate of 30ml/hr and 200ml q2 hr flushes. Rectal tube draining yellow liquid stool to collection bag. Collins cath patent and draining yellow urine to gravity. Pt remains in bilateral upper extremity restraints. Occassionally seen pulling at them. Pt appears flushed and diaphoretic. Plan of care ongoing.
[2024-04-30] VITALS (27 sets, daily range): BP systolic 80–173; BP diastolic 57–146
[2024-04-30 04:03] LABS: Albumin, Blood 2.8 g/dL (3.4-5.0); Anion Gap 10 mmol/L (3-11); Blood Urea Nitrogen 23 mg/dL (8-24); CO2, Blood 22 mmol/L (21-32); Calcium, Blood 9.6 mg/dL (8.5-10.1); Chloride, Blood 117 mmol/L (98-108); Glomerular Filtration Rate 103 (60-); Glucose, Blood 116 mg/dL (70-99); Phosphorus, Blood 3.7 mg/dL (2.5-4.9); Sodium, Blood 144 mmol/L (136-145)
--- NOTE | 2024-04-30 05:15 | NUR ---
End of shift summary No acute event during shift. Pt frequently observed restless on gurney, grimacing, and pulling at restraints. PRN doses of fentanyl and ativan used throughout shift for pain management/agitation. Pt rouses to verbal stimuli and tracks with eyes- able to follow simple commands and nod head for yes or no questions. Pt vent settings remain on spontaneous- ps 10/ peep 6/ 30% fio2. Large amounts of thin, clear/white secretions via ett and oral suctioning. PT hr was labile and ranged from 80-130s, afib. BP stable. Pt tolerating tube feed via ogt @goal rate w/ 200ml q2 hr free water flushes. Good urine output during shift to perry cath- patent and draining clear yellow urine to gravity. Pt rectal tube draining yellow liquid stool to collection bag- bag replaced during shift. Pt revieved bed bath and linen change. Meliza-area is excoriated and inflamed appearing. Barrier cream applied liberally to area. Plan of care ongoing.
--- NOTE | 2024-04-30 07:30 | NUR ---
ASSUMED CARE: REPORT RECEIVED FROM MACHO Hensley RN. ASSUMED CARE OF THIS PT AT APPROX 0700. ON ASSESSMENT, THE PT IS INTUBATED & INTERMITTENTLY RESTLESS. RASS -1/+2 W/ PRN MEDS PER EMAR. HE IS OPENING EYES TO VERBAL STIMULUS & TRACKING THIS RN WHEN PROMPTED BUT IS NOT FOLLOWING ANY DIRECTIONS THIS AM. ROSALES, GENERALLY STRONG, PULLING AT BILAT SOFT WRIST RESTRAINTS IN ATTEMPT TO REACH ETT. LS COARSE T/O, DIM IN BASES. VENT SETTINGS: SPONT W/ PS 10, PEEP 6 & 30% FIO2. O2 SATS > 92%. MONITOR SHOWS AFIB W/ OCCASIONAL PVCs, HR 110-120s, INCREASED W/ AGITATION, BP STABLE. OGT IN PLACE W/ TUBE FEEDS INFUSING AT GOAL RATE, INCREASED FREE WATER FLUSH R/T PERSISTANT HYPERNATREMIA. RECTAL TUBE PATENT/ DRAINING BROWN-ORANGE LIQUID STLS. NO GRIMACE NOTED TO ABD PALPATION. AGUILAR PATENT/ DRAINING YELLOW URINE. SKIN CONDITION OVERALL DIAPHORETIC, INTACT. Q2H REPOSITIONING TO MAINTAIN SKIN INTEGRITY. WILL CONTINUE TO MONITOR & UPDATE NEEDED.
--- NOTE | 2024-04-30 10:10 | NUR ---
EXTUBATION: DR CORRAL HAS ROUNDED THIS AM & FEELS THAT THIS PT IS APPROPRIATE FOR EXTUBATION. HE HAS REMAINED ON SPONTANEOUS VENT SETTINGS FOR > 48 HRS W/ LOW FIO2 REQUIREMENTS. HE IS AWAKENING TO VERBAL STIMULUS & ABLE TO FOLLOW SIMPLE COMMANDS INTERMITTENTLY. AM MEDS GIVEN VIA OGT & TUBE FEED PLACED ON SB PRIOR TO EXTUBATION. THE PT HAS BEEN EXTUBATED BY RT NILS, AT 0956 THIS AM & PLACED ON 3L NC W/ O2 SATS MAINTAINING > 91%. HIS COUGH IS MOIST & WEAK, BUT IMPROVING SINCE EXTUBATION. OGT & RESTRAINTS REMOVED AT TIME OF EXTUBATION.
--- NOTE | 2024-04-30 14:30 | NUR ---
UPDATE: THE PT's MENTATION REMAINS ALTERED, HE IS AWAKE & ABLE TO FOLLOW SOME SIMPLE DIRECTIONS BUT UNABLE TO SAFELY TAKE PO INTAKE AT THIS TIME. PROS & CONS OF PLACING A DOBHOFF NGT FOR MEDICATION ADMINISTRATION W/ PT's HX OF VARICES HAS BEEN DISCUSSED W/ DR CORRAL. HE FEELS THAT BECAUSE THE PT RECEIVED HIS MEDICATIONS THIS AM, WE WILL BE OKAY TO WAIT THROUGH THE NIGHT & REEVALUATE IN THE AM.
--- NOTE | 2024-04-30 17:03 | NUR ---
SHIFT SUMMARY: NO ACUTE CHANGES SINCE PRIOR UPDATES. PT's MENTATION CONTINUES TO BE ALTERED, HE IS OPENING EYES SPONTANEOUSLY & FOLLOWING SOME SIMPLE DIRECTIONS. GROANS OUT AT TIMES BUT HAS NOT VERBALIZED ANY COMPREHENSIBLE WORDS SINCE EXTUBATION. LS REMAIN COARSE/ DIM, PT ON 3L NC W/ O2 SATS > 91%. MONITOR SHOWS AFIB W/ OCCASIONAL PVCs, HR 110-120s, INCREASED W/ RESTLESSNESS, BP STABLE. NPO R/T ASPIRATION RISK - SEE PRIOR UPDATE NOTE. AGUILAR PATENT/ DRAINING YELLOW URINE. SKIN CONDITION OVERALL UNCHANGED. Q2H REPOSITIONING COMPLETED THIS SHIFT TO MAINTAIN SKIN INTEGRITY, PT OFTEN MOVES SELF OFF OF PILLOWS SHORTLY AFTER REPOSITIONING. WILL CONTINUE TO MONITOR & REPORT OFF TO ONCOMING RN.
[2024-04-30] MEDS ORDERED: Carvedilol 25 MG Tab PO SCH (21:00)
[2024-05-01] VITALS (18 sets, daily range): BP systolic 100–163; BP diastolic 20–140
[2024-05-01 04:06] LABS: Albumin, Blood 2.7 g/dL (3.4-5.0); Anion Gap 11 mmol/L (3-11); Blood Urea Nitrogen 21 mg/dL (8-24); Bun/Creatinine Ratio 28.7 (12.0-20.0); CO2, Blood 22 mmol/L (21-32); Calcium, Blood 9.4 mg/dL (8.5-10.1); Chloride, Blood 118 mmol/L (98-108); Creatinine, Blood 0.73 mg/dL (0.60-1.20); Glomerular Filtration Rate 102 (60-); Glucose, Blood 107 mg/dL (70-99); Potassium, Blood 4.5 mmol/L (3.5-5.5); Sodium, Blood 146 mmol/L (136-145)
--- NOTE | 2024-05-01 06:11 | NUR ---
SHIFT SUMMARY: NO ACUTE CHANGES OVERNIGHT. PT REMAINS AMS, RESPONDS TO VERBAL STIMULI BUT IS NOT FOLLOWING DIRECTIONS OR SPEAKING WORDS; PT MOANS ON PERIODICALLY. PT OBSERVED RESTLESS IN BED, OFTEN KICKING LEGS OFF SIDE OF BED. PT REMAINS ON NC @ 4 LPM, SPO2 94<. PT AFIB ON MONITOR WITH HR 120-130'S AND SBP 130'S. PT REMAINS NPO AT THIS TIME DUE TO ASPIRATION RISK. RECTAL TUBE IN PLACE, DRAINING TO GRAIVITY. AGUILAR IN PLACE AND DRAINING TO GRAVITY. Q 2HR REPOSITIONING. WILL REPORT OFF TO ONCOMING RN.
--- NOTE | 2024-05-01 09:36 | NUR ---
AM NOTE.... ASSUMED CARE OF PT AT 0700, PT IS A&O TO SELF ONLY, HE TRACKS MOVEMENT IN THE ROOM AND MOVES ALL EXTREMITIES BUT DOES NOT FOLLOW COMMANDS. PT WAS ON 4L NC WITH O2 SATS>90% AT THE START OF THIS ASSESSMENT, THIS HAS SINCE BEEN TITRATED DOWN TO RA WITH O2 SATS>90%. L/S CLEAR IN THE UPPER AND MID LOBES DIM AND SLIGHTLY COARSE IN THE LOWER LOBES. PT IS IN AFIB 120'S-140'S W/BBB AND OCC PVCs. BP IS LABILE BEING HYPERTENSIVE AT TIMES. NO EDEMA IS NOTED ON THIS ASSESMENT. BT PRESENT AND NORMOACTIVE, RECTAL TUBE IS PATENT AND DRAINING LIQUID BROWN STOOLS. AGUILAR IS PATENT AND DRAINING CLEAR YELLOW URINE TO GRAVITY. WILL CONTINUE TO MONITOR.
[2024-05-01] MEDS ORDERED: Enoxaparin 120 MG/0.8 ML SYR SC SCH (14:00)
[2024-05-01] MEDS ORDERED: Potassium Chloride 40 MEQ in NS 250 ML IV SCH (14:00)
[2024-05-01] MEDS ORDERED: Furosemide 10 MG / ML 2ML Vial IV SCH (14:00)
--- NOTE | 2024-05-01 17:51 | NUR ---
SHIFT SUMMARY.... NO ACUTE NEGATIVE CHANGES NOTED THIS SHIFT. PT CONTINUES TO BE IN AFIB W/RVR IN THE 120'S-140'S BP CONTINUES TO BE STABLE. PT WAS UP IN THE CHAIR FOR SEVERAL HOURS THIS SHIFT. PT CONTINUES TO NOT FOLLOW COMMANDS AT THIS TIME. PT CONTINUES TO BE ON RA WITH O2 SATS>92%. NO OUTPUT FROM THE RECTAL TUBE NOTED THIS SHIFT. PT'S AGUILAR IS PATENT AND DRAINING DARK YELLOW URINE TO GRAVITY. WILL CONTINUE TO MONITOR UNTIL REPORT IS GIVEN TO ONCOMING RN.
--- NOTE | 2024-05-01 21:26 | NUR ---
Assumed care of patient PT IS AWAKE AND RESPONDS TO HIS NAME WITH ASKING HOW HE IS DOING. HE MUMBLED A RESPONSE BUT IT WAS INCOMPREHENSABLE. PT WAS ASKED TO MOVE EXTREM. BY COMMAND AND HE DID LIFT HIS KNEES BUT THEY FELL BACK TO THE BED SINCE HE IS VERY WEAK. 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 PT HAS CLEAR LUNGS, ABD SOFT HYPOBOWEL TONES, RECTAL TUBE IN PLACE WITH VERY LOOSE BROWN STOOL IN TUBE BUT VERY SCANT CAME OUT DURING THE DAY. PT HAS A AGUILAR CATH. IN PLACE WITH GOOD YELLOW URINE OUT. PT HAS A PICC TO RIGHT UPPER ARM WITH IT 14CC OUT UNDER DRESSING. ALL PORT FLUSH EASILY AND TWO OF THE THREE PORTS PULLED BLOOD BACK EASILY. DRESSING WAS CHANGED TODAY BY DAYSHIFT. PT REMAINS AFIB RATE 130-140'S, BP STABLE PT IS AFEBRILE. WILL CONTINUE CARE DIRECTED.
[2024-05-02] VITALS (11 sets, daily range): BP systolic 108–153; BP diastolic 78–119
[2024-05-02 04:36] LABS: BASOPHILS PERCENT AUTO 1 % (0-2); EOSINOPHILS ABSOLUTE AUTO 0.27 K/mm3 (0.00-0.68); EOSINOPHILS PERCENT AUTO 3 % (0-6); Hematocrit 46.7 % (37.0-53.0); Hemoglobin 15.8 g/dL (13.5-17.5); IMMATURE GRAN ABSOLUTE AUTO 0.03 K/mm3 (0.00-0.10); IMMATURE GRAN PERCENT AUTO 0 % (0-1); LYMPHOCYTES ABSOLUTE AUTO 2.01 K/mm3 (0.84-5.20); LYMPHOCYTES PERCENT AUTO 24 % (21-46); MONOCYTES ABSOLUTE AUTO 0.63 K/mm3 (0.16-1.47); MONOCYTES PERCENT AUTO 8 % (4-13); Mean Corpuscular HGB 32.6 pg (26.0-34.0); Mean Corpuscular HGB Conc 33.8 g/dL (31.5-36.5); Mean Corpuscular Volume 97 fL (80-100); Mean Platelet Volume 10.8 fL (9.1-12.4); NEUTROPHILS ABSOLUTE AUTO 5.22 K/mm3 (1.96-9.15); NEUTROPHILS PERCENT AUTO 63 % (41-73); Platelet Count 507 K/mm3 (150-400); RDW Coefficient Variation 13.8 % (11.7-14.2); RDW Standard Deviation 49.3 fL (35.1-46.3); Red Blood Cell Count 4.84 M/mm3 (4.30-5.90); White Blood Cell Count 8.26 K/mm3 (4.00-11.30)
[2024-05-02 04:52] LABS: Albumin, Blood 2.9 g/dL (3.4-5.0); Anion Gap 11 mmol/L (3-11); Blood Urea Nitrogen 21 mg/dL (8-24); Bun/Creatinine Ratio 25.6 (12.0-20.0); CO2, Blood 24 mmol/L (21-32); Calcium, Blood 9.6 mg/dL (8.5-10.1); Chloride, Blood 120 mmol/L (98-108); Creatinine, Blood 0.82 mg/dL (0.60-1.20); Glomerular Filtration Rate 98 (60-); Glucose, Blood 102 mg/dL (70-99); Phosphorus, Blood 3.8 mg/dL (2.5-4.9); Potassium, Blood 4.9 mmol/L (3.5-5.5); Sodium, Blood 150 mmol/L (136-145)
--- NOTE | 2024-05-02 05:11 | NUR ---
END OF SHIFT NOTE PT HAS BEEN RESTLESS ALL NIGHT, THROWING HIS LEGS OVER THE BEDRALE OR OUT THE END OF THE BED. PT REPOSITIONED FREQ. PT HAD HAD GOOD OUTPUT FROM HIS AGUILAR HOWEVER HE HAS HAD NON OUT OF HIS RECTAL TUBE AND SO THE RECTAL TUBE WAS TAKEN OUT. PT'S PULSE CONTINUES TO BE 125-150 AFIB ALL EVENING. HE IS GETTING NITRO TOPICALLY DIRECTED AND NO OTHER MEDICATIONS D/T NPO CURRENTLY. PT DID GET FENTANYL IV FOR GENERALIZED DISCOMFORT AND HE DID REST FOR A COUPLE HOURS AND WAS LESS RESTLESS THEN. VS REMAIN STABLE EXCEPT FOR THE PULSE BEING ELEVATED. PT REMAINS AFEBRILE. TOOK 2 RN'S TO DO PICC DRESSING CHANGED D/T THE PREVIOUS DRESSING WAS ROLLING UP. PT CONTINUES TO MUMBLE WHEN HAVING CONVERSATION AND DOES REACH TO THE AIR IN FRONT OF HIM AT TIMES LIKE HE IS HALLUCINATING, UNSURE HOWEVER.
--- NOTE | 2024-05-02 07:27 | NUR ---
AM NOTE... ASSUMED CARE OF PT AT 0700. PT IS A&O TO SELF AND WILL FOLLOW SOME DIRECTIONS AT TIMES BUT SLOWLY SUCH WHEN PT PUTS HIS LEGS OVER THE SIDE OF THE BED WHEN ASKED HE WILL PULL THEM BOTH BACK UP BUT HE HAS NOT FOLLOWED ANY OTHER DIRECITONS AT THIS TIME. PT MOVES ALL EXTREMITIES BUT THE RIGHT IS NOTED TO BE USED MORE THAN THE LEFT AND IS SLIGHTLY STRONGER. PT IS RESTLESS IN THE BED CONSTANTLY MOVING AND SHIFTING HIMSELF AROUND AND ATTEMPTING TO PULL HIMSELF FORWARD. PT IS IN AFIB W/BBB AND OCC PVCs IN THE 130'S-150'S. BP IS 140/107. NO EDEMA IS NOTED ON THIS ASSESSMENT. BT PRESENT AND HYPOACTIVE, ABD IS SOFT TO PALPATION. AGUILAR IS PATENT AND DRAINING TO GRAVITY. WILL CONTINUE TO MONITOR.
--- NOTE | 2024-05-02 12:56 | NUR ---
Call to pt's brother Murali. Updated on pt's transfer to PCU 20, and current pt condition. Questions answered; he states that he will be here from [place] at the beginning of next week.
--- NOTE | 2024-05-02 13:10 | NUR ---
PT UPDATE..... A DOBHOFF WAS PLACED AT 60 TO THE PT'S LEFT NARE XRAY CONFRIMED PLACEMENT IN THE STOMACH. AMIODERONE BOLUS AND DRIP WERE STARTED PER ORDERS. REPORT WAS CALLED TO FARZANEH FUNES IN PCU, PT'S BELONGINGS WERE PACKED AND SENT WITH THE PT.
--- NOTE | 2024-05-02 13:19 | NUR ---
After patient transferred to PCU 20, noted heart rate 120 bpm, which per report was lower than 140-150 bpm in ICU. Aftial fibrillation, rate is now 111-120 bpm, and amiodarone maintainence drip infusing via PICC line RUE. Pt is alert, non verbal, but does very subtly respond to some questions and directions, but not consistently. Opened his mouth to direction, and nodded his head twice in response to questions. Blood pressure also normalizing, and spo2 96% on room air at this time. He appeared to be attempting repositioning frequently in the recliner, appeared uncomfortable. Transferred with ceiling lift to the bed, and egg crate mattress provided for possible back discomfort.
--- NOTE | 2024-05-02 14:16 | NUR ---
Call to Dr. Reed to notify of dobhoff placement, and pt tolerance. Also asked about enteral nutrition/ IV maintainence fluids. He will check to see if there is a real estate representative available today.
[2024-05-03] VITALS (15 sets, daily range): BP systolic 68–120; BP diastolic 47–85
--- NOTE | 2024-05-03 05:02 | NUR ---
SHIFT SUMMARY PT RESPONDS TO VERBAL STIMULI, EYES OPEN SPONTANEOUSLY. PT IS UNABLE TO FOLLOW COMMANDS AND DOES NOT RESPOND VERBALLY TO QUESTIONS. VSS, AFEBRILE, SPO2 >90% RA, TELE SHOWS SINUS TACH. ORAL CARE PERFORMED THIS SHIFT. PT REPOSITIONED FREQUENTLY. AGUILAR DRAINING TO GRAVITY. TUBE FEED RUNNING AT 50ML/HR. HE IS TOLERATING MEDS AND FLUSHES THROUGH THE DOBHOFF WELL. PT IS RESTING QUIETLY, BED IN LOWEST POSITION, BREATHING EVEN AND UNLABORED.
[2024-05-03 05:40] LABS: BASOPHILS ABSOLUTE AUTO 0.07 K/mm3 (0.00-0.23); BASOPHILS PERCENT AUTO 1 % (0-2); EOSINOPHILS ABSOLUTE AUTO 0.26 K/mm3 (0.00-0.68); EOSINOPHILS PERCENT AUTO 4 % (0-6); Hematocrit 46.1 % (37.0-53.0); Hemoglobin 15.4 g/dL (13.5-17.5); IMMATURE GRAN ABSOLUTE AUTO 0.04 K/mm3 (0.00-0.10); IMMATURE GRAN PERCENT AUTO 1 % (0-1); LYMPHOCYTES ABSOLUTE AUTO 1.96 K/mm3 (0.84-5.20); LYMPHOCYTES PERCENT AUTO 26 % (21-46); MONOCYTES ABSOLUTE AUTO 0.65 K/mm3 (0.16-1.47); MONOCYTES PERCENT AUTO 9 % (4-13); Mean Corpuscular HGB 32.6 pg (26.0-34.0); Mean Corpuscular HGB Conc 33.4 g/dL (31.5-36.5); Mean Corpuscular Volume 98 fL (80-100); Mean Platelet Volume 11.5 fL (9.1-12.4); NEUTROPHILS ABSOLUTE AUTO 4.52 K/mm3 (1.96-9.15); NEUTROPHILS PERCENT AUTO 60 % (41-73); Platelet Count 469 K/mm3 (150-400); RDW Coefficient Variation 13.7 % (11.7-14.2); RDW Standard Deviation 50.3 fL (35.1-46.3); Red Blood Cell Count 4.73 M/mm3 (4.30-5.90)
[2024-05-03 06:17] LABS: Albumin, Blood 2.8 g/dL (3.4-5.0); Anion Gap 11 mmol/L (3-11); Blood Urea Nitrogen 23 mg/dL (8-24); Bun/Creatinine Ratio 27.3 (12.0-20.0); CO2, Blood 21 mmol/L (21-32); Calcium, Blood 9.5 mg/dL (8.5-10.1); Chloride, Blood 123 mmol/L (98-108); Creatinine, Blood 0.84 mg/dL (0.60-1.20); Glomerular Filtration Rate 97 (60-); Glucose, Blood 129 mg/dL (70-99); Magnesium, Blood 2.1 mg/dL (1.6-2.4); Phosphorus, Blood 3.5 mg/dL (2.5-4.9); Potassium, Blood 3.6 mmol/L (3.5-5.5); Sodium, Blood 151 mmol/L (136-145)
[2024-05-03] MEDS ORDERED: Amiodarone HCl 200 MG Tab PO SCH (09:25)
--- NOTE | 2024-05-03 16:03 | NUR ---
PLACED on 2 l/min of 02 for spo2 88% on room air. Respirations 24-29/min, unlabored. Heart rate 78 bpm, afib
[2024-05-03] MEDS ORDERED: Lactulose 20 GM/30 ML UDC PT SCH (21:00)
[2024-05-03] MEDS ORDERED: Flumazenil 0.1 MG / ML 5ML Vial ONE (23:32)
[2024-05-03] MEDS ORDERED: Flumazenil 0.1 MG / ML 5ML Vial IV ONE (23:35)
[2024-05-03] MEDS ORDERED: NS 250 ML IV ONE (23:50)
[2024-05-03] MEDS ORDERED: Midodrine 5 MG Tab PO ONE (23:55)
[2024-05-04] VITALS (44 sets, daily range): BP systolic 64–132; BP diastolic 46–103
[2024-05-04] MEDS ORDERED: levETIRAcetam 1,000 MG in NS 100 ML IV ONE (00:10)
[2024-05-04 00:18] LABS: pH Blood Arterial 7.46 (7.35-7.45)
[2024-05-04 00:19] LABS: PCO2 Arterial 30.5 mmHg (35-45); PO2 Arterial 98.2 mmHg (80-100)
[2024-05-04] MEDS ORDERED: NS 250 ML IV ONE (00:20)
--- NOTE | 2024-05-04 03:32 | NUR ---
ARRIVAL TO ICU PT ARRIVED 0020. PT ALERT, LOOKING AROUND ROOM AND MUMBLING WORDS. DOES NOT FOLLOW DIRECTIONS BUT TRACKS RN. MAP 56-75. AFIB RATE 58-80. MIDODRINE GIVEN VIA DOBBHOFF. PICC NOTED TO BE 16CM OUT AND WHEN PLACED IT WAS 7CM. PICC HARD TO FLUSH AND DOES NOT DRAW BACK. CALL TO [facility] AND CHEST XRAY DONE. PER HOSP PICC TIP IS MID SUBCLAVIAN BUT OKAY TO USE. ATTEMPTED TO GIVE 250ML BOLUS AND IV PUMP KEPT ALARMING OCCLUSION. PIV PLACED AND BOLUS GIVEN LATE. AT THIS TIME PT MAP 65-78. VSS. LEVOPHED NOT STARTED. KEPPRA HELD PER HOSP. ON 2L RA WITH SPO2 GREATER THEN 95%. NO DISTRESS NOTED. TF STOPPED FOR TRANSFER AND RESTARTED AT 60ML/HR AND 70ML/HR H20 FLUSH. AGUILAR PATENT AND DRAINING TO GRAVITY.
[2024-05-04 03:39] LABS: BASOPHILS ABSOLUTE AUTO 0.05 K/mm3 (0.00-0.23); BASOPHILS PERCENT AUTO 1 % (0-2); EOSINOPHILS ABSOLUTE AUTO 0.27 K/mm3 (0.00-0.68); EOSINOPHILS PERCENT AUTO 5 % (0-6); Hematocrit 46.2 % (37.0-53.0); Hemoglobin 15.4 g/dL (13.5-17.5); IMMATURE GRAN ABSOLUTE AUTO 0.01 K/mm3 (0.00-0.10); IMMATURE GRAN PERCENT AUTO 0 % (0-1); LYMPHOCYTES PERCENT AUTO 30 % (21-46); MONOCYTES ABSOLUTE AUTO 0.57 K/mm3 (0.16-1.47); MONOCYTES PERCENT AUTO 10 % (4-13); Mean Corpuscular HGB 32.7 pg (26.0-34.0); Mean Corpuscular HGB Conc 33.3 g/dL (31.5-36.5); Mean Corpuscular Volume 98 fL (80-100); Mean Platelet Volume 10.6 fL (9.1-12.4); NEUTROPHILS PERCENT AUTO 55 % (41-73); Platelet Count 410 K/mm3 (150-400); RDW Coefficient Variation 13.9 % (11.7-14.2); RDW Standard Deviation 50.8 fL (35.1-46.3); Red Blood Cell Count 4.71 M/mm3 (4.30-5.90)
--- NOTE | 2024-05-04 03:41 | NUR ---
UPDATE AT APPROXIMATELY 23:13 UPON TAKING VITALS PT WAS FOUND TO BE HYPOTENSIVE AND UNRESPONSIVE. SBP 60'S-80'S AND DBP 40'S-50'S WITH MAP <60. NITRO PASTE WAS PROMPTLY REMOVED AND CLEANSED FROM PT'S SKIN. CDL INSTRUCTOR AND MD MADE AWARE OF PT STATUS. PT PLACED IN TRENDELENBERG POSITION WITHOUT IMPROVEMENT OF BP. RESIDENT AND BEVEL GEAR GENERATOR OPERATOR PRESENTED TO ROOM TO EVALUATE PT. ORDER FOR FLUMAZENIL GIVEN X2 WITH SOME RESOLUTION IN LOC ALTHOUGH PT REMAINED HYPOTENSIVE AND BEGAN EXPERIENCING APNEIC EPISODES. 250ML BOLUS ADMINISTERED. PER MD, PT TO TRANSFER TO ICU. PT TAKEN TO ICU 4 AND REPORT GIVEN TO MARIN ROMERO.
[2024-05-04 03:53] LABS: Albumin, Blood 2.8 g/dL (3.4-5.0); Anion Gap 8 mmol/L (3-11); Blood Urea Nitrogen 24 mg/dL (8-24); Bun/Creatinine Ratio 27.1 (12.0-20.0); CO2, Blood 24 mmol/L (21-32); Chloride, Blood 121 mmol/L (98-108); Creatinine, Blood 0.89 mg/dL (0.60-1.20); Glomerular Filtration Rate 96 (60-); Glucose, Blood 105 mg/dL (70-99); Phosphorus, Blood 3.8 mg/dL (2.5-4.9); Potassium, Blood 4.1 mmol/L (3.5-5.5); Sodium, Blood 149 mmol/L (136-145)
[2024-05-04] MEDS ORDERED: [UNRECOGNIZED DRUG - OTHER] IV ONE (09:40)
[2024-05-04] MEDS ORDERED: Midodrine 5 MG Tab PO SCH (10:00)
--- NOTE | 2024-05-04 11:14 | NUR ---
SHIFT ASSESSMENT ASSUMED CARE OF PT @ 0700. INITIALLY PT QUITE SOMNOLENT, DIFFICULT TO AROUSE. DURING THAT TIME PT MILDLY HYPOTENSIVE AND BRADYCARDIC. 250ML BOLUS OF D5-1/2 NS GIVEN WELL MIDODRINE. ANTIHYPERTENSIVE MEDICATIONS WITHELD. AMIODARONE NOT GIVEN. PT NOW ALERT, MUMBLING INCOHERENTLY, LIFTING R ARM AND LEG TO COMMAND, MOVING LEFT EXTREMITIES SPONTANEOUSLY. TF INFUSING VIA DOBHOFF @ GOAL. AGUILAR CATH PATENT, DRAINING YELLOW URINE. NO BM THIS AM. REPORT CALLED TO PCU NURSE, WILL MOVE TO PCU ROOM 10.
--- NOTE | 2024-05-04 12:14 | NUR ---
PT TX TO PCU 10 VIA GURNEY, TOTAL LIFT TO PCU BED.
--- NOTE | 2024-05-04 12:51 | NUR ---
TRANSFER FROM ICU: PT TRANSFERRED OVER FROM ICU 4 TO PCU 10. UPON TRANSFER PT HAS DOBHOFF IN INFUSING AT 60ML/HR. PT NO LONGER REQUIRING SUPPLEMENTAL O2. 96% ON RA. PT HAS TELE ON SHOWING A-FIB AT 85BPM. HE IS AFEBRILE. B/P IS 108/74 MAP OF 86. PT ABLE TO MOVE R ARM AND LEG WITH LITTLE MOVEMENT TO THE L SIDE. HE IS ABLE TO STATE WORDS SOME ARE INCOHERENT. PT ABLE TO STATE YEAR AND HEIGHT. UNABLE TO OBTAIN ANY OTHER INFORMATION FROM PT. NOT FOLLOWING COMMANDS AT THIS TIME. PT HAS AGUILAR IN PLACE DRAINING TO GRAVITY. 500CC UPON ARRIVAL. HAS POTASSIUM RUNNING AND TKO IN PLACE.
--- NOTE | 2024-05-04 17:00 | NUR ---
PCU SHIFT SUMMARY: PT HAD NO ACUTE CHANGES IN CONDITION SINCE ADMISSION TO PCU. HE WAS BEGINNNG TO GET RESTLESS AND A SITTER WAS DESIGNATED TO THE ROOM. PT DID NOT GET OUT OF BED LIKELY DUE TO WEKANESS TO L SIDE. HE WAS PROVIDED WITH PERSONAL CARE AND HAS BEEN SLEEPING SOUNDLY SINCE. 1:1 SITTER REMAINS IN ROOM. PT TOLERATED ALL TUBE FEEDING AND MEDCIATIONS WELL. B/P REMAINED STABLE WITH USE OF MIDODRINE MAPS >70. HR REMAINED IN A-FIB 70-95BPM. DENIED ANY C/P OR SOB. O2 STABLE >92% ON RA. WILL CONTINUE TO MONITIOR UNTIL REPORT TO NOC RN
[2024-05-04] MEDS ORDERED: Carvedilol 6.25 MG Tab PO SCH (21:00)
[2024-05-04] MEDS ORDERED: Midodrine 5 MG Tab PO ONE (23:10)
[2024-05-05] VITALS (18 sets, daily range): BP systolic 85–131; BP diastolic 56–93
[2024-05-05 04:32] LABS: BASOPHILS ABSOLUTE AUTO 0.06 K/mm3 (0.00-0.23); BASOPHILS PERCENT AUTO 1 % (0-2); EOSINOPHILS ABSOLUTE AUTO 0.34 K/mm3 (0.00-0.68); EOSINOPHILS PERCENT AUTO 6 % (0-6); Hematocrit 45.1 % (37.0-53.0); Hemoglobin 14.8 g/dL (13.5-17.5); IMMATURE GRAN ABSOLUTE AUTO 0.01 K/mm3 (0.00-0.10); IMMATURE GRAN PERCENT AUTO 0 % (0-1); LYMPHOCYTES ABSOLUTE AUTO 2.02 K/mm3 (0.84-5.20); LYMPHOCYTES PERCENT AUTO 35 % (21-46); MONOCYTES ABSOLUTE AUTO 0.71 K/mm3 (0.16-1.47); MONOCYTES PERCENT AUTO 12 % (4-13); Mean Corpuscular HGB 32.5 pg (26.0-34.0); Mean Corpuscular HGB Conc 32.8 g/dL (31.5-36.5); Mean Corpuscular Volume 99 fL (80-100); Mean Platelet Volume 11.3 fL (9.1-12.4); NEUTROPHILS ABSOLUTE AUTO 2.59 K/mm3 (1.96-9.15); NEUTROPHILS PERCENT AUTO 45 % (41-73); Platelet Count 376 K/mm3 (150-400); RDW Coefficient Variation 13.5 % (11.7-14.2); RDW Standard Deviation 49.4 fL (35.1-46.3); Red Blood Cell Count 4.55 M/mm3 (4.30-5.90); White Blood Cell Count 5.73 K/mm3 (4.00-11.30)
--- NOTE | 2024-05-05 04:39 | NUR ---
SHIFT SUMMARY PT ALERT BUT NOT ORIENTED. PT IS UNABLE TO RESPOND MEANINGFULLY TO QUESTIONS. OPENS EYES SPONTANEOUSLY. PT IS RESTLESS AT TIMES AND REQUIRES FREQUENT REDIRECTION. PT WITH 1:1 SITTER. PT NOTED TO BE HYPOTENSIVE, MIDODRINE 10MG ONE TIME ORDER ADMINISTERED PER EMAR. ALL HYPERTENSIVE MEDICATIONS HELD THIS SHIFT. PT APPEARS TO BE ASYMPTOMATIC OF HYPOTENSION. PT WITH SIGNIFICANT LEFT SIDED DEFICIT. TUBE FEED INFUSING AT 60ML/HR THROUGH DOBHOFF. PT IS RESTING QUIETLY, CALL LIGHT WITHIN REACH, BREATHING EVEN AND UNLABORED.
[2024-05-05 04:52] LABS: Albumin, Blood 2.6 g/dL (3.4-5.0); Anion Gap 9 mmol/L (3-11); Blood Urea Nitrogen 21 mg/dL (8-24); Bun/Creatinine Ratio 25.9 (12.0-20.0); CO2, Blood 24 mmol/L (21-32); Calcium, Blood 8.7 mg/dL (8.5-10.1); Chloride, Blood 119 mmol/L (98-108); Creatinine, Blood 0.81 mg/dL (0.60-1.20); Glomerular Filtration Rate 98 (60-); Glucose, Blood 106 mg/dL (70-99); Phosphorus, Blood 3.5 mg/dL (2.5-4.9); Potassium, Blood 3.9 mmol/L (3.5-5.5); Sodium, Blood 148 mmol/L (136-145)
--- NOTE | 2024-05-05 17:53 | NUR ---
SHIFT SUMMARY PATIENT ALERT, ORIENTED TO SELF ONLY. PATIENT WITH MUMBLED AND NONSENSICAL SPEECH. PATIENT WILL ATTEMPT TO EXPRESS NEEDS BUT IS UNABLE. LEFT ARM CONTINUES TO BE WEAK, MOVING ALL OTHER EXTREMITIIES. PATIENT ON RA DURING THE DAY, SPO2 >90%. TELE READING AFIB 60-90s. BP SOFT WHILE SLEEPING, NORMOTENSIVE WHILE AWAKE. PATIENT RECEIVING MIDODRINE. AGUILAR REMAINS IN PLACE, BLADDER TRAINING STARTED. PATIENT RESTLESS DURING THE DAY AND HAD TO BE REDIRECTED MULTIPLE TIMES. SITTER AT BEDSIDE. TUBE FEED INFUSING AT GOAL. PICC REMOVED BY MANUFACTURING OPERATOR TODAY AND REPLACED WITH POWERGLIDE. NO OTHER CHANGES DURING THE NIGHT. WILL REPORT TO SHEETING PULLER RN.
--- NOTE | 2024-05-05 22:10 | NUR ---
ASSUMPTION OF CARE AFTER RECEIVING REPORT FROM CARLOS RN, THIS RN ASSUMED CARE AT APPROX 1915. PATIENT ALERT, NOT ORIENTED. DIFFICULTY FOLLOWING COMMANDS. MUMBLED SPEECH, UNABLE TO RESPOND MEANINGFULLY. IS RESTLESS AT TIMES, ATTEMPTING TO GET OUT OF BED OR PULLING AT LINES/DEVICES. CLINICAL SITTER AT BEDSIDE. L SIDED WEAKNESS. DOES NOT MOVE L ARM. BP SOFT AT TIMES, IS RECEIVING SCHEDULED MIDODRINE PER EMAR. BP STABLE AT ASSUMPTION OF CARE. TOLERATING ROOM AIR, SATs >90%. TACHYPNEA AT REST. AGUILAR CATHETER IN PLACE, DRAINING YELLOW URINE TO GRAVITY. BLADDER TRAINING IN PROGRESS FOR REMOVAL. ATTENDS IN PLACE. CALL LIGHT IN REACH. BED ALARM ON.
[2024-05-06] VITALS (8 sets, daily range): BP systolic 80–118; BP diastolic 56–83
[2024-05-06 04:10] LABS: BASOPHILS ABSOLUTE AUTO 0.05 K/mm3 (0.00-0.23); BASOPHILS PERCENT AUTO 1 % (0-2); EOSINOPHILS PERCENT AUTO 5 % (0-6); Hematocrit 46.8 % (37.0-53.0); Hemoglobin 15.2 g/dL (13.5-17.5); IMMATURE GRAN ABSOLUTE AUTO 0.02 K/mm3 (0.00-0.10); IMMATURE GRAN PERCENT AUTO 0 % (0-1); LYMPHOCYTES PERCENT AUTO 40 % (21-46); MONOCYTES ABSOLUTE AUTO 0.65 K/mm3 (0.16-1.47); MONOCYTES PERCENT AUTO 12 % (4-13); Mean Corpuscular HGB 32.5 pg (26.0-34.0); Mean Corpuscular HGB Conc 32.5 g/dL (31.5-36.5); Mean Corpuscular Volume 100 fL (80-100); Mean Platelet Volume 11.1 fL (9.1-12.4); NEUTROPHILS ABSOLUTE AUTO 2.32 K/mm3 (1.96-9.15); NEUTROPHILS PERCENT AUTO 42 % (41-73); Platelet Count 296 K/mm3 (150-400); RDW Coefficient Variation 13.5 % (11.7-14.2); RDW Standard Deviation 50.4 fL (35.1-46.3); Red Blood Cell Count 4.67 M/mm3 (4.30-5.90); White Blood Cell Count 5.54 K/mm3 (4.00-11.30)
--- NOTE | 2024-05-06 04:28 | NUR ---
SHIFT SUMMARY NO ACUTE EVENTS SINCE ASSUMPTION OF CARE. PATIENT SLEPT T/O NIGHT, EASILY AROUSABLE WITH VERBAL STIMULI. WHILE AWAKE, DOES CONTINUE TO PULL AT LINES, DEVICES AND ATTEMPT TO GET OUT OF BED. CLINICAL SITTER AT BEDSIDE. NO ACUTE NEURO CHANGES - IS BEGINNING TO SPEAK IN SMALL ONE TO TWO CLEAR STATEMENTS. TELEMETRY SHOWING AFIB 60s-70s. WITH SLEEP, DOES EXPERIENCE INTERMITTENT, SHORT PAUSES WITH BRADYCARDIA TO 40s-50s. ASYMPTOMATIC. BP STABLE THROUGHOUT NIGHT. SBP 90s-100s. MAP >65. PLACED ON 2L VIA NC WITH SLEEP DOES DESAT <90%. AGUILAR CATHETER IN PLACE - BLADDER TRAINING T/O NIGHT WITH PLAN TO REMOVE PRIOR TO CHANGE OF SHIFT. TUBE FEEDING INFUSING AT GOAL. CALL LIGHT IN REACH. WILL CONTINUE TO MONITOR AND REPORT TO ONCOMING RN.
[2024-05-06 04:30] LABS: Albumin, Blood 2.7 g/dL (3.4-5.0); Anion Gap 8 mmol/L (3-11); Blood Urea Nitrogen 21 mg/dL (8-24); Bun/Creatinine Ratio 28.9 (12.0-20.0); CO2, Blood 25 mmol/L (21-32); Calcium, Blood 9.1 mg/dL (8.5-10.1); Chloride, Blood 115 mmol/L (98-108); Creatinine, Blood 0.73 mg/dL (0.60-1.20); Glomerular Filtration Rate 102 (60-); Glucose, Blood 98 mg/dL (70-99); Phosphorus, Blood 3.2 mg/dL (2.5-4.9); Potassium, Blood 4.1 mmol/L (3.5-5.5); Sodium, Blood 144 mmol/L (136-145)
--- NOTE | 2024-05-06 05:30 | NUR ---
AGUILAR CATHETER REMOVED (SEE BLADDER MANAGEMENT DOCUMENTATION). ATTENDS IN PLACE FOR INCONTINENCE MANAGEMENT.
--- NOTE | 2024-05-06 18:43 | NUR ---
SHIFT SUMMARY: PT SLEEPS OFTEN, WAKES TO VERBAL STIMULI, ORIENTED TO SELF. THIS MORNING, OCC THERAPY TO ROOM AND PT WAS ABLE TO STAY ALERT ENOUGH TO ANSWER QUESTIONS AND PARTICIPATE WITH THERAPY. WHEN ASKED IF HE PREFERED TO BE CALLED KATHERINE OR ELISHA, PT STATED "RON. TELLO IF I'M IN TROUBLE". PT ABLE TO MOVE ALL EXTREMITIES. AFTER WORKING W/OT PT NAPPED A GOOD PORTION OF THE DAY AND DIDN'T WAKE ENOUGH TO FOLLOW COMMANDS WITH PT OR ST. O2 SATS MAINTAINED >92% ON 2 L/MIN VIA NC. AFIB CONTINUES ON MONITOR W/RATE RANGING 40s-80s, DEPENDING ON SLEEP/ALERT. BP CONTINUES SOFT, PT MEDICATED PER ORDERS VIA DOBHOFF. TUBE FEEDING CONTINUES AT GOAL. ATTENDS IN PLACE, CHECKED FREQUENTLY AND CHANGED PRN. 1:[address] WILL CONTINUE TO MONITOR AND TREAT ACCORDINGLY UNTIL CHANGE OF SHIFT.
[2024-05-07 03:34] VITALS: BP 89/70
[2024-05-07] MEDS ORDERED: Lansoprazole 15 MG TAB.RAP.DR PO SCH (06:00)
--- NOTE | 2024-05-07 06:08 | NUR ---
SHIFT SUMMARY PATIENT ALERT AND ORIENTED TO SELF, STRUGGLES WITH FOLLOWING SIMPLE DIRECTIONS. HAD NO COMPLAINTS OF PAIN OR SHORTNESS OF BREATH. ON 02 VIA NC. VITAL SIGNS STABLE, NO EVENTS ON TELE. CONTINUES ON TUBE FEED AT GOAL RATE. NO ACUTE ISSUES NOTED OVERNIGHT. SITTER AT BEDSIDE. WILL CONTINUE TO MONITOR. CALL LIGHT WITHIN REACH.
[2024-05-07 06:39] LABS: Bun/Creatinine Ratio 26.9 (12.0-20.0); Creatinine, Blood 0.78 mg/dL (0.60-1.20)
[2024-05-07 08:18] VITALS: BP 98/71
[2024-05-07 11:17] VITALS: BP 122/80
--- NOTE | 2024-05-07 12:22 | NUR ---
Pt is alert this morning with conversation and care. Falls to sleep easily when not stimulated. When alert he is oriented to person, place and following some directions. Having some appropriate conversation. Remembers his brother's name, his own full name and birthdate. Speech is slurred and slow, and at times he is confused; however, he is easily redirected and is cooperative. Vital signs have been stable, although b/p was soft this morning and he had some brief bradycardia. Spoke with Dr. Reed about this and new orders were received for med changes. Lactolose held for 3 liquid BM this morning.
[2024-05-07 15:05] VITALS: BP 122/96
[2024-05-07 20:26] VITALS: BP 128/102
[2024-05-07] MEDS ORDERED: Gabapentin 250 MG/5 ML ORAL SYRINGE PT SCH (21:00)
[2024-05-08] VITALS (7 sets, daily range): BP systolic 98–127; BP diastolic 78–100
--- NOTE | 2024-05-08 06:05 | NUR ---
SHIFT SUMMARY PATIENT ALERT AND ORIENTED TO SELF. HAD NO COMPLAINTS OF PAIN OR SHORTNESS OF BREATH. ON ROOM AIR WITH SPO2 >90%. VITAL SIGNS STABLE, AFIB 70'S-80'S ON TELE. TUBE FEED AT GOAL RATE. NO ACUTE ISSUES NOTED OVERNIGHT. WILL CONTINUE TO MONITOR. CALL LIGHT WITHIN REACH.
--- NOTE | 2024-05-08 10:17 | NUR ---
Pt is lethargic this morning, but at 1000 did open his eyes spontaneously and briefly responded to conversation. He appears to still be sleepy. Delaying PT/OT/ST until awake and able to participate. He was not awake enough to eat breakfast yet. Meds all given by Dobhoff due to lethargy. Crackles noted in lungs posteriorly, pt is clearing his own secretions spontaneously. No O2 requirements. TF infusing at goal rate, no changes since yesterday decrease on the water flush volume. Blood pressure this morning noted high so midodrine was held. Also held neurontin due to somnulence. No bradycardia reported overnight by telemetry monitoring. Pt has male purewick which appears to be working well. Pt appears to be resting comfortably.
--- NOTE | 2024-05-08 18:31 | NUR ---
Pt ate 50% of his dinner, states he is done. Tube feeding on hold following dinner, for 1 hour.
[2024-05-09] VITALS (7 sets, daily range): BP systolic 82–141; BP diastolic 54–92
--- NOTE | 2024-05-09 00:21 | NUR ---
RECEIVED REPORT AND ASSUMED CARE OF PT. PT IS RESTING QUIETLY WITH EYES CLOSED AND SNORING RESPIRATIONS. BP NOTED TO BE LOW, MAP OF 65, CONSISTENT WITH TREND. MALE PUREWICK IN PLACE, ATTACHED TO SUCTION. ATTENDS IN PLACE. CALL LIGHT PLACED ON PT'S ABDOMEN, BED IN LOWEST POSITION. BED ALARM ON.
--- NOTE | 2024-05-09 00:24 | NUR ---
TRANSFER PATIENT TRANSFERRED FROM PCU 10 TO MEDICAL FLOOR ROOM 345. PATIENT ASLEEP THROUGH TRANSFER. REPORT GIVEN TO KEIRA Childers RN.
[2024-05-09] MEDS ORDERED: NS 500 ML IV ONE (00:50)
--- NOTE | 2024-05-09 05:10 | NUR ---
SHIFT SUMMARY: KATHERINE IS A&OX2. VSS, BP LOW BUT CONSISTENT WITH TREND. SPEECH MUMBLED, DIFFICULT TO UNDERSTAND. PT AROUSES EASILY. INCONTINENT OF BLADDER AND BOWEL, ATTENDS AND MALE PUREWICK IN PLACE, Q2 TURN, LIFT FOR TRANSFERS, HEAVY 2-PERSON ASSIST FOR IN BED CARE. DOBHOFF IN PLACE. PER REPORT, PT HAS BEEN TOLERATING PO INTAKE WELL, ASPIRATION PRECAUTIONS, MEDS CRUSHED IN APPLESAUCE, AND PUREED DIET. TELE SHOWS A-FIB 70'S-90'S. HE IS LYING IN BED WITH THE CALL LIGHT IN REACH. WILL GIVE REPORT TO DAY SHIFT RN.
[2024-05-09] MEDS ORDERED: Carvedilol 6.25 MG Tab PO SCH (09:00)
[2024-05-09] MEDS ORDERED: Furosemide 20 MG Tab PO SCH (09:00)
[2024-05-09] MEDS ORDERED: Rivaroxaban 10 MG Tab PO SCH (09:00)
--- NOTE | 2024-05-09 16:31 | NUR ---
SHIFT SUMMARY PT AOX1, ATTEMPTING TO CONVERSE MORE BUT SPEECH IS DIFFICULT TO UNDERSTAND. LITTLE USE OF THE L SIDE, ENCOURAGING USE AND HE ATTEMPTS BUT LITTLE MOVEMENT. HE IS A LIFT PT AND A HEAVY MOVE IN THE BED. NG TUBE IN PLACE AND PATENT. SOME MEDICATIONS WERE ABLE TO BE CRUSHED IN APPLESAUCE, MORNING MEDS GIVEN PER TUBE DUE TO THE PT'S LETHARGY. NO COMPLAINTS OF PAIN, NAUSEA, VOMITING, OR CP. HE HAD A LARGE BM THIS SHIFT. UP IN THE 90 DEGREE FOR FEEDINGS AND MEDICATION ADMINISTRATION. CONDOM CATH IN PLACE AND DRAINING. CALL LIGHT WITHIN REACH, BED LOCKED AND IN THE LOWEST POSITION. REPOSITIONED THROUGHOUT THE SHIFT. WILL REPORT TO ONCOMING SHIFT. NO EVENTS PER TELE.
[2024-05-09] MEDS ORDERED: Gabapentin 250 MG/5 ML ORAL SYRINGE PT SCH (21:00)
[2024-05-10] VITALS (9 sets, daily range): BP systolic 95–132; BP diastolic 66–95
--- NOTE | 2024-05-10 03:52 | NUR ---
SHIFT SUMMARY: KATHERINE IS A&OX1-2. PT HAS BEEN MORE ALERT THIS SHIFT AND EASILY AROUSABLE WHEN RESTING WITH HIS EYES CLOSED. HE HAS REQUESTED WATER A FEW TIMES AND TOLERATED IT WELL. DOBHOFF IN PLACE. MALE PURWICK IN PLACE AND ATTENDS. PT HAS HAD ADEQUATE URINE OUTPUT THIS SHIFT. VSS, NO ACUTE EVENTS OVERNIGHT. PT HAS BEEN MOVING HIMSELF IN BED FREQUENTLY AND WAS ABLE TO FOLLOW DIRECTIONS DURING LAST ATTENDS CHANGE. SPEECH MUMBLED. IV TO LEFT FOREARM AND POWERGLIDE TO LEFT UPPER ARM PATENT. HE IS LYING IN BED WITH THE CALL LIGHT IN REACH, BED IN LOWEST POSITION. WILL GIVE REPORT TO DAY SHIFT RN.
[2024-05-10] MEDS ORDERED: Ondansetron HCl 2 MG / ML 2ML Vial IV PRN (22:20)
[2024-05-11 05:10] VITALS: BP 106/68
--- NOTE | 2024-05-11 06:06 | NUR ---
Shift Summary Pt was alert and restless t/o most of the shift. He is mostly non-verbal and doesn't seem to understand most questions, although he did have moments of clarity where he would answer my question with a confident yes/no or he would ask for water. He didn't try to get out of bed although he would be leaning parts of his body over the bedrail at times. Male purewick was in place but it was leaking, he is currently in attends which are changed as needed. This AM he did fall alseep and would have pauses in breathing while asleep. Pt did endorse some nausea in the night, I called the hospitalist who started PRN Zofran. PO fluid intake encouraged, pt was able to swallow liquids tonight without issue.
[2024-05-11 07:45] VITALS: BP 111/77
[2024-05-11 09:56] LABS: Hemoglobin 15.8 g/dL (13.5-17.5); Mean Corpuscular HGB 32.5 pg (26.0-34.0); Mean Corpuscular HGB Conc 34.3 g/dL (31.5-36.5); Mean Corpuscular Volume 95 fL (80-100); Mean Platelet Volume 12.2 fL (9.1-12.4); Platelet Count 210 K/mm3 (150-400); RDW Coefficient Variation 13.2 % (11.7-14.2); RDW Standard Deviation 45.9 fL (35.1-46.3); Red Blood Cell Count 4.86 M/mm3 (4.30-5.90); White Blood Cell Count 5.59 K/mm3 (4.00-11.30)
[2024-05-11 10:36] LABS: Bun/Creatinine Ratio 20.6 (12.0-20.0); Calcium, Blood 9.2 mg/dL (8.5-10.1); Creatinine, Blood 0.87 mg/dL (0.60-1.20); Potassium, Blood 3.6 mmol/L (3.5-5.5)
[2024-05-11 12:10] VITALS: BP 140/97
--- NOTE | 2024-05-11 15:33 | NUR ---
PATIENT UNABLE TO TAKE AM MEDICATIONS TODAY. TOO SEDATE IS AN ASPIRATION RISK. THROUGHOUT THE DAY HE REMAINS UNABLE TO SWALLOW LIQUIDS OR TAKE NUTRITION BY MOUTH. HE IS ORIENTED TO SELF. PATIENT HAS AN ATTENDS ON HE IS INCONTIENT OF BOWEL AND BLADDER. HE IS PLACED IN POSITION OF COMFORT AND TURNED Q 2 HOURS TO ASSIST IN PREVENTING SKIN BREAKDOWN. VITAL SIGNS ARE STABLE WITH B/P OF 140/97 AND A HR OF 59 THIS AFTERNOON. HE IS NOT FEBRILE LABS ARE UNREMARKABLE WITH EXCEPTION OF BUN CREATNINE OF 20.6 AND CHLORIDE OF 116. PATIENT DOES NOT FOLLOW DIRECTIONS AND TRIES REPEATEDLY TO GET OUT OF BED. WILL REMAIN AVAILABLE FOR THIS PATEINT FOR ANY WANTS OR NEEDS.
[2024-05-11 15:45] VITALS: BP 113/100
[2024-05-11 19:38] VITALS: BP 101/79
[2024-05-12] VITALS (7 sets, daily range): BP systolic 85–136; BP diastolic 57–99
--- NOTE | 2024-05-12 04:05 | NUR ---
NOC SHIFT SUMMARY PT APPEARED TO SLEEP WELL. COOPERATIVE WITH CARES. DOES TAKE TELE LEADS OFF FREQUENTLY. REPOSITIONED EVERY [address] PRECAUTIONS IN PL[address], BED ALARM ON, CALL LIGHT WITHIN REACH.
[2024-05-12] MEDS ORDERED: Amiodarone HCl 200 MG Tab PO SCH (18:00)
[2024-05-12] MEDS ORDERED: Multivitamins 1 Tab PO SCH (18:00)
[2024-05-12] MEDS ORDERED: Cholecalciferol 1000 Unit Tablet (=25MCG) PT SCH (18:00)
[2024-05-12] MEDS ORDERED: Metoprolol Succinate 25 MG TABCR PO SCH (18:00)
[2024-05-12] MEDS ORDERED: Empagliflozin 10 MG TAB PO SCH (18:00)
--- NOTE | 2024-05-12 18:39 | NUR ---
SHIFT SUMMARY; PATEINT MUCH MORE ALERT TODAY THAN YESTERDAY. HE KEEPS TRYING TO GET OUT OF BED AND IS NOT REDIRECTABLE. IS A FALL RISK SO PLACED IN ANGELIKA VEST AT 1515 AFTER MULTIPLE TRIES IE... LOW NOISE. DISTRACTION. STAFF SITTING IN ROOM WITH PATEINT WITHOUT SUCCESS. HE EATS WELL AT ALL THREE MEALS. HE IS A FEEDER. PILLS CRUSHED IN APPLESAUCE. HE DRINKS FLUIDS WITH A STRAW AND HAS NO DIFFICULTY. HE IS NOT ABLE TO GRASP EATING UTENSILS. VITAL SIGNS ARE STABLE AND HE IS NOT FEBRILE.
[2024-05-12] MEDS ORDERED: Famotidine 20 MG Tab PO SCH (21:00)
[2024-05-13] VITALS (7 sets, daily range): BP systolic 82–128; BP diastolic 64–98
--- NOTE | 2024-05-13 04:00 | NUR ---
NOC SHIFT SUMMARY PT IS STILL IN A ANGELIKA VEST HE HAS GOTTEN STRONGER IN RECENT DAYS AND CAN EASILY GET OUT OF BED BUT IS UNSTEADY AND WEAK. IT IS DIFFICULT TO REDIRECT HIM WHEN HE GETS FIXATED ON LEAVING. WITH THE ANGELIKA VEST ON HE APPEARED TO SLEEP WELL, HE WAS STILL ABLE TO ROLL FROM SIDE TO SIDE. BED ALARM ON, CALL LIGHT WITHIN REACH.
[2024-05-13 05:38] LABS: Hematocrit 42.3 % (37.0-53.0); Hemoglobin 14.9 g/dL (13.5-17.5); Mean Corpuscular HGB 32.7 pg (26.0-34.0); Mean Corpuscular HGB Conc 35.2 g/dL (31.5-36.5); Mean Corpuscular Volume 93 fL (80-100); Mean Platelet Volume 11.9 fL (9.1-12.4); Platelet Count 167 K/mm3 (150-400); RDW Coefficient Variation 13.1 % (11.7-14.2); RDW Standard Deviation 44.5 fL (35.1-46.3); Red Blood Cell Count 4.56 M/mm3 (4.30-5.90)
[2024-05-13 06:04] LABS: Bun/Creatinine Ratio 22.6 (12.0-20.0); Calcium, Blood 8.9 mg/dL (8.5-10.1); Creatinine, Blood 0.84 mg/dL (0.60-1.20)
--- NOTE | 2024-05-13 17:37 | NUR ---
PT WAKING UP AND BECOMING MORE ORIENTED TODAY. HE TALKED TO BROTHER ABOUT FISHING ON PHONE TODAY. B/P IMPROVED THIS AFTERNOON. ABLE TO GIVE MEDS. HERON WELL. HE STATES WANTS TO GET UP SOON. WILL SEE WHAT PHYS THERAPY CAN DO TODAY. NO OTHER CONCERNS NOTED. BED IN LOW POSITION, CALL LITE IN REACH, DOES NOT FOLLOW DIRECTION, NOT REDIRECTABLE. VEST ON FOR SAFETY, BED ALARM ON FOR SAFETY
[2024-05-13] MEDS ORDERED: Spironolactone 25 MG Tab PT SCH (18:00)
[2024-05-13] MEDS ORDERED: Spironolactone 12.5 MG TAB PT SCH (18:00)
[2024-05-13] MEDS ORDERED: Rivaroxaban 10 MG Tab PO SCH (18:00)
--- NOTE | 2024-05-14 04:23 | NUR ---
SHIFT SUMMARY ADMITTED FOR PNEU - RESOLVED. FULL CODE. PLAN IS FOR SNF PLACEMENT. POWERGLIDE IN LUE. PUREE DIET, TOLERATING WELL. XARELTO IS SCHEDULED. HE IS IMPULSIVE AND FREQUENTLY ATTEMPTS TO GET OUT OF BED. LEFT SIDED WEAKNESS NOTED. ON RA. LIFT PATIENT HE IS TOO WEAK TO GET UP YET. MEDS CRUSHED IN SAUCE. A&O TO SELF, AND POSSIBLY FAMILY. HE WILL ATTEMPT TO HELP US WITH ROLLING WHEN WE CHANGE HIS ATTENDS, BUT HE IS INCONTINENT. HE PULLED OUT HIS PERIPHERAL IV THIS SHIFT, BUT THE POWERGLIDE REMAINS. HX: ETOH, FREQUENT FALLS.
[2024-05-14 04:27] VITALS: BP 120/82
[2024-05-14 07:47] VITALS: BP 106/71
[2024-05-14 15:44] VITALS: BP 103/70
--- NOTE | 2024-05-14 17:31 | NUR ---
PT AOX2 THIS AFTERNOON AND WORKED VERY WELL WITH PHYSICAL THERAPY TODAY. PT WAS ABLE TO WALK WITH ONE PERSON ASSIST AND WALKER WITH GAITBELT. PT SAT UP IN CHAIR FOR MEALS. PT CONTINUES TO BE IMPULSIVE AND SETS ALARMS ON POSE IS STILL NEEDED. BED AND CHAIR ALARM IN USE. WILL CONTINUE TO MONITOR.
[2024-05-14 19:22] VITALS: BP 94/69
[2024-05-14] MEDS ORDERED: NS 500 ML IV ONE (20:00)
[2024-05-15 04:43] VITALS: BP 117/73
--- NOTE | 2024-05-15 04:56 | NUR ---
SHIFT SUMMARY 63 YR M ADMITTED ON 04/15/24. FULL CODE. SHORTLY AFTER SHIFT STARTED, PT WAS NOTED TO HAVE A BP OF 94/69 AND HR OF 45. HE WAS ASYMPTOMATIC AND HOSPITALIST WAS NOTIFIED. A 500 ML BOLUS OF NS WAS ORDERED AND ADMINISTERED AND TELE WAS PLACED ON PT. HR AND BP STABILIZED AND WERE WNL FOR REST OF SHIFT. PT REMAINS CONFUSED AND IMPULSIVE SO ANGELIKA VEST REAMINED ON FOR ENTIRETY OF SHIFT. HOSPITALIST CAME TO SEE PT AND STATED THAT HE LOOKED MUCH BETTER THAN HE HAD PREVIOUSLY AND STATED THAT HIS MENTATION WAS BETTER WELL. PT IS STILL INCONTINENT BUT DID ASK FOR THE URINAL SEVERAL TIMES AND URINATED IN IT ONCE.
[2024-05-15 06:43] LABS: Bun/Creatinine Ratio 24.6 (12.0-20.0); Creatinine, Blood 0.81 mg/dL (0.60-1.20); Potassium, Blood 3.8 mmol/L (3.5-5.5)
[2024-05-15 07:48] VITALS: BP 106/77
[2024-05-15 16:08] VITALS: BP 96/76
--- NOTE | 2024-05-15 16:09 | NUR ---
PT HAS BEEN DOING WELL NO ACUTE CHANGES AOX2. PT HAS BEEN A ONE ASSIST WITH GAITBELT AND WALKER. PT CONTINUES TO NEED POSE STILL VERY IMPULSIVE AND DOES NOT KNOW WHEN HE SHOULD CALL FOR ASSISTANCE. PT ABLE TO REQUEST GOING TO RESTROOM,BUT CAN STILL BE INCONTENT. NO DISTRESS NOTED CALL LIGHT WITHIN REACH AND BED AND CHAIR ALARMS IN USE.
[2024-05-15] MEDS ORDERED: QUEtiapine Fumarate 25 MG Tab PO PRN (16:25)
[2024-05-15 20:01] VITALS: BP 134/85
--- NOTE | 2024-05-16 03:23 | NUR ---
SHIFT SUMMARY 63 YR M ADMITTED ON 04/15/24. FULL CODE. NO ACUTE CHANGES THIS SHIFT. PT HAD ANGELIKA VEST DC'D DURING DAY SHIFT AND THERE HAS BEEN NO NEED FOR ONE THIS SHIFT. HE HAS BEEN CALM AND COOPERATIVE, YET RESTLESS. HE HAS NOT BEEN IMPULSIVE TO GET OUT OF BED ON HIS OWN. HE DOES NOT USE THE CALL LIGHT BUT RATHER SPEAKS OUT.
[2024-05-16 05:24] VITALS: BP 120/83
[2024-05-16 07:06] VITALS: BP 138/93
[2024-05-16] MEDS ORDERED: Thiamine HCl 100 MG Tab PO SCH (09:00)
[2024-05-16 16:40] VITALS: BP 122/79
--- NOTE | 2024-05-16 18:03 | NUR ---
SHIFT SUMMARY: PT ORIENTED TO SELF THIS AM. PT WORKED WITH PY/OT THIS SHIFT. COG EVAL COMPLETED WITH A SCORE OF 15. PT HAD LARGE LOOSE BM THIS AM. ST SAW PT THIS AM AND SWITCHED FROM PUREE TO MINCED & MOIST. PT NOW TOLERATING PILLS WHOLE WITH WATER W/O NOTED ASPIRATION. PT NOW MORE ALERT AND ORIENTED WITH EARLY EVENING MEDICATIONS. PT ABLE TO STATE TOWN AND MONTH. PT HAS BEEN CONTINENT OF URINE WITH URINAL. CALL LIGHT IN REACH. BED IN LOWEST POSITION.
[2024-05-16 19:25] VITALS: BP 112/68
[2024-05-17 03:22] VITALS: BP 121/70
[2024-05-17 07:14] VITALS: BP 93/75
[2024-05-17 07:17] VITALS: BP 111/69
[2024-05-17] MEDS ORDERED: Acetaminophen 325 MG TABLET PO PRN (11:25)
[2024-05-17] MEDS ORDERED: Magnesium Hydroxide Conc 10 ML UDC PO PRN (11:25)
[2024-05-17 15:19] VITALS: BP 85/58
[2024-05-17] MEDS ORDERED: Protein Supplement 30 ML UD PO SCH (16:00)
--- NOTE | 2024-05-17 16:54 | NUR ---
The system was down at start of shift til late afternoon. Manually documenting all day. Am patient vitals, telli replacemnet on repeat, UP n Down, unable to relax, fidgety but pleasant, upto restroom n back, unmeasured voids, ambulates well, alarms on both bed and chair, fresh ice water provided 480, easily tangled in gown and linens when just awaked and anxious to jump up but redirectable. Breakfast 75 percent fluids 800, 2nd ensure, Lunch 50 fluids 240, ice water again, 480, 12;30p M.D. Ok'd d/c fortunatoi, sent bk to pcu all intact and clean, after lunch heavily amped, up down up down seeking things. will cont'd charting in leemail as its been restored
[2024-05-17] MEDS ORDERED: Cholecalciferol 1000 Unit Tablet (=25MCG) PO SCH (18:00)
[2024-05-17] MEDS ORDERED: Spironolactone 12.5 MG TAB PO SCH (18:00)
--- NOTE | 2024-05-17 18:11 | NUR ---
REPORT RECEIVED VERIFIED. A/O X2 ANSWERS QUESTIONS APPROPRIATLY BUT SEEMS CONFUSED IS CONSTANTLY GETTING OUT OF BED AND DOESNT EXPRESS UNDERSTANDING THAT HE CANT GO HOME YET, PT SLOWLY AMBULATES IN RM AND SHOWS NOT SIGN THAT HE IS ABOUT TO FALL. FEEDS SELF AND ASKS IF HE NEEDS ANYTHING, SO HE CAN MAKE NEEDS KNOWN. PT CURRENTLY QUIETLY LAYING IN BED.
[2024-05-17 20:27] VITALS: BP 102/72
[2024-05-17] MEDS ORDERED: Lactobacil 2-S.Thermo-Bifido 1 1 Cap PO SCH (21:00)
[2024-05-17] MEDS ORDERED: Lactulose 20 GM/30 ML UDC PO SCH (21:00)
[2024-05-18 04:39] VITALS: BP 103/68
--- NOTE | 2024-05-18 05:25 | NUR ---
SHIFT SUMMARY: NO ACUTE EVENTS. DENIED PAIN. WAS AWAKE ALL NIGHT, RESTLESS, BUT DECLINED OFFERED SEROQUEL. A&O X 3, BUT HAS SOME TROUBLE WITH WORD FINDING AND COORDINATION (PUTTING PANTS ON BACKWARDS, UNABLE TO FIGURE OUT HOW TO PUT ON PULL UP DISPOSABLE UNDERWEAR). AMBULATING IN ROOM, USING FURNITURE, COULD NOT GET HIM TO USE FWW. TURNS OFF CHAIR ALARM HIMSELF.
[2024-05-18 07:19] VITALS: BP 92/59
[2024-05-18 15:13] VITALS: BP 108/71
--- NOTE | 2024-05-18 16:51 | NUR ---
REPORT RECEIVED VERIFIED, UNEVENTFUL DAY TODAY, PT LAID IN BED TODAY FLAT AFFEVCT BUT IS SO FAR APPROPRIATED WITH CARE. PT REQUESTING TO GO HOME BUT HAVING A HARD TIME UNDERSTANDING WHY HE IS HERE. EX GIRL FRIEND ARRIVED AND WAS SPEAKING ABOUT RENT, AGITATING PT HAVING AN OBIOUS CHANGE IN DEMEANER.
[2024-05-18 19:41] VITALS: BP 92/53
[2024-05-18] MEDS ORDERED: QUEtiapine Fumarate 25 MG Tab PO SCH (21:00)
[2024-05-19 04:14] VITALS: BP 91/63
--- NOTE | 2024-05-19 04:39 | NUR ---
SHIFT SUMMARY: NO ACUTE EVENTS. RESTLESS, IN AND OUT OF BED EVERY FEW MINUTES, DONNING AND REMOVING GOWN AND BED LINENS; PRN SEROQUEL GIVEN TO HELP HIM SLEEP WITHOUT SUCCESS. GAIT APPEARS A BIT STEADIER TONIGHT. USING BR INDEPENDENTLY. DENIED PAIN. INTERMITTENT CONFUSION. NO RESTRAINTS IN USE.
[2024-05-19 07:08] VITALS: BP 95/71
[2024-05-19 14:45] VITALS: BP 147/132
--- NOTE | 2024-05-19 17:06 | NUR ---
REPORT RECEIVED VERIFED PT A/O X 3 HAD A MUCH BETTER DAY TODAY WAS MORE RESPONSIVE TO COMMUNICATION AND WAS WILLING TO TAKE A SHOWER AND HAVE ROOM CLEANED. PT HAD FRIEND AT BEDSIDE, BUT NO CHANGE IN CONDITION.
[2024-05-19 17:08] VITALS: BP 101/77
[2024-05-19 19:30] VITALS: BP 93/74
[2024-05-20 04:07] VITALS: BP 159/113
--- NOTE | 2024-05-20 05:16 | NUR ---
SHIFT SUMMARY: PATIENT FULLY ORIENTED, BUT FORGETFUL. WANDERED IN ROOM DURING NIGHT, AT ONE POINT WALKED WITH BRIEFS AND GOWN SAGGING. PATIENT SLEPT FAIRLY DURING NIGHT. SWALLOWS PILLS WHOLE WITH THIN LIQUIDS.
[2024-05-20 07:26] VITALS: BP 104/64
[2024-05-20 14:02] VITALS: BP 99/66
[2024-05-20 17:27] VITALS: BP 110/68
--- NOTE | 2024-05-20 17:37 | NUR ---
SHIFT SUMMARY PT A&OX3 W/ CONFUSION, FORGETFULNESS, IMPULSION AT TIMES, VSS, AMB W/ SBA, TOLERATING PO, INCONT VOIDS, AND DENIED PAIN. PT WORKED W/ PHYSICAL THERAPY AND TOLERATED IT WELL, SEE THERAPY NOTE. NEW PICTURES TAKEN OF SKIN/WOUNDS THIS AM AND PLACED IN CHART. NO OTHER ACUTE CHANGES THIS SHIFT. CALL LIGHT WITHIN REACH AND CHAIR ALARM ON.
[2024-05-20 20:37] VITALS: BP 118/85
--- NOTE | 2024-05-21 06:20 | NUR ---
SHIFT SUMMARY: PATIENT ANSWERS ORIENTATION QUESTIONS, BUT IS IMPULSIVE AND MAKES POOR DECISIONS: I.E. WEARING ONE LEG OF SHORTS, WEARING SHIRT BACKWARDS, LEAVING FECAL SMEARS ON BED. WALKS INDEPENDENTLY TO THE BATHROOM AND AROUND IN ROOM. PATIENT TAKES PILLS ORALLY WITH THIN LIQUIDS. FAMILY CONCERNED ABOUT FUTURE CARE.
[2024-05-21 06:22] VITALS: BP 103/74
[2024-05-21 07:19] VITALS: BP 116/93
[2024-05-21] MEDS ORDERED: Acetaminophen650 M1 PO (11:53)
[2024-05-21] MEDS ORDERED: BISA10S PR (11:54)
[2024-05-21] MEDS ORDERED: PACERONE100 M1 PO (11:54)
[2024-05-21] MEDS ORDERED: FAMO20 PO (11:55)
[2024-05-21] MEDS ORDERED: LACT10SY PO (11:56)
[2024-05-21] MEDS ORDERED: MULVITA PO (11:56)
[2024-05-21] MEDS ORDERED: SEROQUEL25 MG PO (11:57)
[2024-05-21] MEDS ORDERED: QUET25 PO (11:57)
[2024-05-21] MEDS ORDERED: ENTRESTO 24 MG1 EACH PO (11:58)
[2024-05-21] MEDS ORDERED: Vitamin D1000 UNI1 PO (11:59)
[2024-05-21] MEDS ORDERED: B-1100 M1 PO (11:59)
[2024-05-21] MEDS ORDERED: SPIR25 PO (11:59)
[2024-05-21 12:46] LABS: SARS-Cov-2 (COVID-19) PCR, MMC NEGATIVE (NEGATIVE)
--- NOTE | 2024-05-21 14:24 | NUR ---
THIS NURSE CALLED [facility] AND GAVE REPORT TO SUSU FUNES.
--- NOTE | 2024-05-21 14:38 | NUR ---
DISCHARGE NOTE PT DISCHARGED TO SNF AT 1433. PT A&OX3, VSS, AMB IND, TOLERATING PO, VOIDING, AND DENIED PAIN. BELONGINGS WERE RETURNED AND PT ESCOURTED OUT VIA W/C BY TRANSPORT. DISCHARGE PACKET GIVEN TO TRANSPORT.
== END 2024-05-21 14:34 | DRG 896 ==
LOC: ER 20:02 → PCU 20:03 → ICUE 04-15 14:37 → MEDS 04-15 14:37 → PCU 04-15 14:38 → ICUE 04-16 02:17 → PCU 05-02 12:19 → ICUE 05-04 01:00 → PCU 05-04 12:21 → MEDS 05-09 00:25
PROVIDERS: Emergency Medicine; Family Medicine; Internal Medicine; Internal Medicine Critical Care Medicine; Nurse Practitioner Acute Care; Student in an Organized Health Care Education/Training Program; ADMIT Student in an Organized Health Care Education/Training Program
PROC: 5A1955Z Respiratory Ventilation, Greater than 96 Consecutive Hours (ICD-10-PCS; principal; 2024-04-16)
PROC: HZ2ZZZZ Detoxification Services for Substance Abuse Treatment (ICD-10-PCS; 2024-04-16)
PROC: 0BH17EZ Insertion of Endotracheal Airway into Trachea, Via Natural or Artificial Opening (ICD-10-PCS; 2024-04-16)
PROC: 3E033XZ Introduction of Vasopressor into Peripheral Vein, Percutaneous Approach (ICD-10-PCS; 2024-04-16)
PROC: 02HV33Z Insertion of Infusion Device into Superior Vena Cava, Percutaneous Approach (ICD-10-PCS; 2024-04-16)
PROC: 4A133R1 Monitoring of Arterial Saturation, Peripheral, Percutaneous Approach (ICD-10-PCS; 2024-04-16)
PROC: 0T9B70Z Drainage of Bladder with Drainage Device, Via Natural or Artificial Opening (ICD-10-PCS; 2024-04-16)
DX: F10.239 Alcohol dependence with withdrawal, unspecified (principal); G92.8 Other toxic encephalopathy; J96.01 Acute respiratory failure with hypoxia; J15.211 Pneumonia due to Methicillin susceptible Staphylococcus aureus; I42.0 Dilated cardiomyopathy; I67.89 Other cerebrovascular disease; E87.0 Hyperosmolality and hypernatremia; E72.20 Disorder of urea cycle metabolism, unspecified; I48.20 Chronic atrial fibrillation, unspecified; E87.3 Alkalosis; I50.22 Chronic systolic (congestive) heart failure; I85.10 Secondary esophageal varices without bleeding; K76.6 Portal hypertension; F10.229 Alcohol dependence with intoxication, unspecified; F17.200 Nicotine dependence, unspecified, uncomplicated; K05.10 Chronic gingivitis, plaque induced; G47.33 Obstructive sleep apnea (adult) (pediatric); R22.2 Localized swelling, mass and lump, trunk; K70.30 Alcoholic cirrhosis of liver without ascites; I86.4 Gastric varices; I11.0 Hypertensive heart disease with heart failure; E66.9 Obesity, unspecified; I95.9 Hypotension, unspecified; E87.6 Hypokalemia; Z74.09 Other reduced mobility; Z60.2 Problems related to living alone; Y90.8 Blood alcohol level of 240 mg/100 ml or more; Z88.0 Allergy status to penicillin; Z86.718 Personal history of other venous thrombosis and embolism; Z79.01 Long term (current) use of anticoagulants; Z86.711 Personal history of pulmonary embolism; Z78.1 Physical restraint status; Z68.32 Body mass index [BMI] 32.0-32.9, adult
CPT/HCPCS: 31500; 36415; 36569; 36600; 51702; 70450; 71045; 71260; 72125; 76705; 80048; 80053; 80069; 80202; 81001; 82010; 82140; 82248; 82306; 82803; 82947; 83605; 83735; 83880; 84100; 84295; 84443; 85025; 85027; 85379; 85610; 87070; 87077; 87086; 87186; 87205; 87493; 92526; 92610; 93005; 93010; 94002; 94003; 94760; 94762; 96372-59; 96374; 96375; 96376; 97110; 97116; 97130; 97162; 97166; 97530; 97535; 99285-25; A9270; C1751; C9113; G0378; J0282; J0295; J0690; J0696; J1160; J1170; J1630; J1650; J1815; J1940; J2060; J2250; J2371; J2405; J2543; J2704; J2997; J3010; J3360; J3370; J3411; J3475; J3480; J7030; J7040; J7042; J7050; J7060; J7070; P9045; Q9967; U0002

== ENCOUNTER 2024-09-10 07:43 | Inpatient (IN) | payer MEDICARE ==
[2024-09-10] VITALS (46 sets, daily range): BP systolic 85–152; BP diastolic 59–110
[~2024-09-10] VITALS: Ht 188 cm; Wt 122.0 kg
[~2024-09-10 07:43] MED LIST changes: +Acetaminophen650 M1 PO; +B-1100 M1 PO; +BISA10S PR; +ENTRESTO 24 MG1 EACH PO; +FAMO20 PO; +LACT10SY PO; +LIDO700A20 TOP; +MULVITA PO; +PACERONE100 M1 PO; +QUET25 PO; +SEROQUEL25 MG PO; +SPIR25 PO; +Vitamin D1000 UNI1 PO
[2024-09-10] MEDS ORDERED: Albuterol 2.5 MG/3 ML VIAL INH SCH ×2 (08:25→09:30)
[2024-09-10] MEDS ORDERED: Ipratropium/Albuterol SulF 2.5-0.5MG/3 ML Amp INH ONE (08:25)
[2024-09-10 08:28] LABS: BASOPHILS ABSOLUTE AUTO 0.04 K/mm3 (0.00-0.23); BASOPHILS PERCENT AUTO 1 % (0-2); EOSINOPHILS ABSOLUTE AUTO 0.04 K/mm3 (0.00-0.68); EOSINOPHILS PERCENT AUTO 1 % (0-6); Hematocrit 48.2 % (37.0-53.0); Hemoglobin 15.2 g/dL (13.5-17.5); IMMATURE GRAN ABSOLUTE AUTO 0.17 K/mm3 (0.00-0.10); IMMATURE GRAN PERCENT AUTO 2 % (0-1); LYMPHOCYTES ABSOLUTE AUTO 3.34 K/mm3 (0.84-5.20); LYMPHOCYTES PERCENT AUTO 39 % (21-46); MONOCYTES ABSOLUTE AUTO 0.41 K/mm3 (0.16-1.47); MONOCYTES PERCENT AUTO 5 % (4-13); Mean Corpuscular HGB 34.3 pg (26.0-34.0); Mean Corpuscular HGB Conc 31.5 g/dL (31.5-36.5); Mean Corpuscular Volume 109 fL (80-100); Mean Platelet Volume 11.5 fL (9.1-12.4); NEUTROPHILS ABSOLUTE AUTO 4.49 K/mm3 (1.96-9.15); NEUTROPHILS PERCENT AUTO 53 % (41-73); Platelet Count 109 K/mm3 (150-400); RDW Coefficient Variation 13.4 % (11.7-14.2); Red Blood Cell Count 4.43 M/mm3 (4.30-5.90); White Blood Cell Count 8.49 K/mm3 (4.00-11.30)
[2024-09-10 08:29] LABS: PCO2 Arterial 70.8 mmHg (35-45); PO2 Arterial 168 mmHg (80-100); pH Blood Arterial < 6.82 (7.35-7.45)
[2024-09-10 08:43] LABS: International Normalized Ratio 1.14; Prothrombin Time Results 12.1 Sec (9.7-11.5)
[2024-09-10 08:45] LABS: Albumin, Blood 3.3 g/dL (3.4-5.0); Albumin/Globulin Ratio 0.8 (0.8-1.8); Bilirubin, Total 3.2 mg/dL (0.1-1.0); Bun/Creatinine Ratio 7.6 (12.0-20.0); Calcium, Blood 9.6 mg/dL (8.5-10.1); Creatinine, Blood 1.31 mg/dL (0.60-1.20); Globulin, Blood 4.3 g/dL (2.2-4.0); Magnesium, Blood 2.6 mg/dL (1.6-2.4); Potassium, Blood 4.3 mmol/L (3.5-5.5); Total Protein, Blood 7.6 g/dL (6.4-8.2)
[2024-09-10] MEDS ORDERED: propofoL 20 ML IV SCH (09:00)
[2024-09-10] MEDS ORDERED: propofoL 100 ML IV SCH (09:05)
[2024-09-10 09:07] LABS: Base Excess Venous -19.2 mmol/L; Bicarbonate Venous 11.8 mmol/L (24.0-30.0); PCO2 Venous 27.9 mmHg (38-42); pH Blood Venous 7.15 (7.34-7.37)
[2024-09-10] MEDS ORDERED: MethylPREDNISolone Sod Succ 125 MG Vial IV ONE (09:20)
[2024-09-10] MEDS ORDERED: fentaNYL citrate 1,000 MCG in NS 80 ML IV SCH (09:20)
[2024-09-10] MEDS ORDERED: Pantoprazole Sodium 40 MG Injection IV ONE (09:50)
[2024-09-10] MEDS ORDERED: CefTRIAXone Sodium 1,000 MG in NS 50 ML IV ONE (09:50)
[2024-09-10] MEDS ORDERED: FLU VACC TS2024-25(6MOS UP)/PF 45 MCG/0.5 ML SYRINGE IM SCH (10:35)
[2024-09-10] MEDS ORDERED: Cetylpyridinium Chloride 1 EA MISC MT SCH (10:35)
[2024-09-10] MEDS ORDERED: FentaNYL Citrate 50 MCG/ML 2 ML Injection IV PRN (10:40)
[2024-09-10] MEDS ORDERED: LORazepam 2 MG/ML 1ML Injection IV PRN ×2 (10:40)
[2024-09-10] MEDS ORDERED: LORazepam 2 MG/ML 1ML Injection IV ONE (10:45)
[2024-09-10 10:46] LABS: Chloride (POC) 103 mmol/L (98-108); Creatinine (POC) 1.2 mg/dL (0.8-1.3); Glucose (ISTAT POC) 119 mg/dL (70-99); Potassium (POC) 4.3 mmol/L (3.5-5.5); Sodium (POC) 140 mmol/L (135-148); Total CO2 (POC) 18 mmol/L (21-32)
[2024-09-10 10:47] LABS: Hemoglobin (POC) 17.7 g/dL (13.5-17.5)
[2024-09-10] MEDS ORDERED: Thiamine HCl 100 MG in NS 50 ML IV SCH ×2 (11:00→12:30)
[2024-09-10] MEDS ORDERED: Pantoprazole Sodium 40 MG Injection IV SCH (11:00)
[2024-09-10] MEDS ORDERED: Folic Acid 1 MG in NS 50 ML IV SCH (12:00)
[2024-09-10] MEDS ORDERED: Hydrogen Peroxide 1.5 % Solution MT SCH (12:00)
[2024-09-10] MEDS ORDERED: EPINEPhrine HCl 0.1 MG/ML 10ML SYR XX ONE (13:10)
[2024-09-10] MEDS ORDERED: Sodium Bicarb 8.4% 50 mEq Syringe IV ONE (13:10)
[2024-09-10] MEDS ORDERED: Midazolam HCl 1MG / ML 2ML Vial IV PRN (13:15)
[2024-09-10 13:46] LABS: BASOPHILS ABSOLUTE AUTO 0.02 K/mm3 (0.00-0.23); BASOPHILS PERCENT AUTO 0 % (0-2); EOSINOPHILS PERCENT AUTO 0 % (0-6); Hematocrit 42.6 % (37.0-53.0); Hemoglobin 14.5 g/dL (13.5-17.5); IMMATURE GRAN ABSOLUTE AUTO 0.12 K/mm3 (0.00-0.10); IMMATURE GRAN PERCENT AUTO 1 % (0-1); LYMPHOCYTES ABSOLUTE AUTO 0.42 K/mm3 (0.84-5.20); LYMPHOCYTES PERCENT AUTO 3 % (21-46); MONOCYTES ABSOLUTE AUTO 0.67 K/mm3 (0.16-1.47); MONOCYTES PERCENT AUTO 4 % (4-13); Mean Corpuscular HGB 33.9 pg (26.0-34.0); Mean Platelet Volume 10.8 fL (9.1-12.4); NEUTROPHILS ABSOLUTE AUTO 14.89 K/mm3 (1.96-9.15); NEUTROPHILS PERCENT AUTO 92 % (41-73); Platelet Count 125 K/mm3 (150-400); RDW Coefficient Variation 13.6 % (11.7-14.2); RDW Standard Deviation 50.2 fL (35.1-46.3); Red Blood Cell Count 4.28 M/mm3 (4.30-5.90); White Blood Cell Count 16.12 K/mm3 (4.00-11.30)
[2024-09-10 13:50] LABS: Mean Corpuscular Volume 100 fL (80-100)
[2024-09-10 14:05] LABS: Source, Urine Foley catheter
[2024-09-10 14:14] LABS: Albumin, Blood 3.2 g/dL (3.4-5.0); Albumin/Globulin Ratio 0.9 (0.8-1.8); Bilirubin, Total 3.3 mg/dL (0.1-1.0); Bun/Creatinine Ratio 8.4 (12.0-20.0); Calcium, Blood 8.5 mg/dL (8.5-10.1); Creatinine, Blood 1.66 mg/dL (0.60-1.20); Globulin, Blood 3.6 g/dL (2.2-4.0); Magnesium, Blood 2.3 mg/dL (1.6-2.4); Phosphorus, Blood 6.6 mg/dL (2.5-4.9); Potassium, Blood 3.4 mmol/L (3.5-5.5); Total Protein, Blood 6.8 g/dL (6.4-8.2)
[2024-09-10 14:14] LABS: Appearance, Urine Hazy (Clear); Bilirubin, Urine Neg (Neg); Blood, Urine 5+ (Neg); Color, Urine Amber (P-Yellow); Glucose Qualitative, Urine 3+ (Neg); Ketones, Urine 1+ (Neg); Leukocyte Esterase, Urine 1+ (Neg); Nitrite, Urine Neg (Neg); Protein, Urine 3+ (Neg); Specific Gravity, Urine 1.015 (1.003-1.022); Urobilinogen, Urine 2+ (Normal)
[2024-09-10 14:25] LABS: Amorphous Light (0-Heavy)
[2024-09-10 14:26] LABS: Bacteria Few /hpf; Red Blood Cells, Urine 0-2 /hpf (0-2); Squamous Epithelial Cells Not Seen /hpf (Few)
[2024-09-10 14:30] LABS: Ethanol (Alcohol), Blood, Med <3 mg/dL
[2024-09-10 14:32] LABS: Acetaminophen, Random <2.0 ug/mL (10.0-30.0)
[2024-09-10 14:34] LABS: U Amphetamine Screen Not Detected; U Barbituate Screen Not Detected; U Benzodiazapine Screen DETECTED; U Buprenorphine Screen Not Detected; U Cannabinoids Screen DETECTED; U Cocaine Screen Not Detected; U Methadone Screen Not Detected; U Methamphetamine Screen Not Detected; U Opiates Screen Not Detected; U Oxycodone Screen Not Detected; U Phencyclidine Screen Not Detected
--- NOTE | 2024-09-10 15:37 | NUR ---
PT ARRIVAL TO UNIT... PT ARRRIVED TO THE UNIT INTUBATED AND SEDATED, VENT SETTINGS WERE AC/VC: 20/500/5/35% WITH O2 SATS>92% L/S VERY DIM T/O. RR WAS IN THE HIGH 30'S. PT'S ET TUBE WAS 7.5 AND 24 AT THE GUMS. PT'S PROPOFOL WAS RUNNING AT 30MCG/KG, FENTANY DRIP RUNNING AT 35MCG/HR. PT IS UNRESPONSIVE, PUPILS ARE APROX 2MM AND FIXED. PT DOES NOT WITHDRAW/RESPOND TO PAINFUL STIMULI. PT HAS FREQUENT SEZIURE LIKE MOVEMENTS WHERE HIS ARMS JERK, HIS EYE SPRING OPEN AND HE STARTS TO SHAKE/JERK ALL OVER. THIS WAS STARTING TO HAPPEN MORE FREQUENTLY UNTIL THE PROPOFOL WAS INCREASED TO 45MCG/KG. PT WAS GIVEN 2MG IV ATIVAN WHICH DID NOT SEEM TO STOP THE SEIZURE LIKE ACTIVITY, THEN 2MG VERSED WAS GIVEN DURING ANOTHER EPISODE, THIS DID NOT SEEM TO STOP THE ACTIVITY. A RIGHT IJ CENTRAL LINE WAS PLACED BY ICU PROVIDER, PT'S TEMP UPON ARRIVAL WAS 98.5, CURRENT TEMP IS 100.1. COOLING MEASURES ARE IN PLACE. DURING ORAL CARE THIS RN NOTED A LARGE AMOUNT OF CHEWING TOBACCO IN THE PT'S MOUTH. THE PT WAS NOTED TO BE CLAMPING DOWN ON THE ET TUBE VERY HARD TO WHERE THIS RN WAS UNABLE TO PROVIDE GOOD ORAL CARE. WILL CONTINUE TO MONITOR.
[2024-09-10] MEDS ORDERED: JARDIANCE10 MG PO (15:45)
--- NOTE | 2024-09-10 16:11 | NUR ---
EEG.... PT'S SEDATION WAS STOPPED AT 1610 FOR EEG. PT CONTINUES TO HAVE TREMORS/JERKING MOVEMENTS INCREASED WHEN SEDATION IS STOPPED. WILL CONTINUE TO MONITOR.
[2024-09-10] MEDS ORDERED: Potassium Chl 20MEQ/Water100ML 100 ML IV STA (16:55)
[2024-09-10 17:19] LABS: Base Excess Venous -8.2 mmol/L; Bicarbonate Venous 18.3 mmol/L (24.0-30.0); PCO2 Venous 35.3 mmHg (38-42); pH Blood Venous 7.32 (7.34-7.37)
[2024-09-10] MEDS ORDERED: Vancomycin HCL 1,500 MG in NS 250 ML IV ONE (17:25)
[2024-09-10] MEDS ORDERED: NS 250 ML IV PRN (17:50)
[2024-09-10] MEDS ORDERED: Piperacillin/Tazobactam Sod 3.375 GM in NS 100 ML IV SCH (18:00)
--- NOTE | 2024-09-10 18:42 | NUR ---
SHIFT SUMMARY.... EEG AND ECHO WERE DONE AT THE BEDSIDE THIS SHIFT. PT CONTINUES TO BE ON PROPOFOL AT 50MCG/KG AND FENTANYL DRIP AT 35MCG/HR FOR SEDATION. WHILE PT WAS OFF SEDATION FOR THE EEG THE PT'S TREMORS/JERKING BECAME WORSE AND MORE FREQUENT, PT HAS POSITIVE DOLL'S EYES, PUPILS CONTINUE TO BE EQUAL AND FIXED. PT DOES NOT RESPOND TO ANY STIMULI. NO GAG NOTED BUT COUGH IS NOTED WITH DEEP ET TUBE SUCTIONING. DURING ORAL CARE THIS RN NOTED A LARGE AMOUNT OF CHEWING TOBACCO IN THE PT'S MOUTH ORAL CARE WAS DONE SEVERAL TIMES TO CLEAR HIS MOUTH OF THE TOBACCO. OG TUBE CONTINUES TO BE SET TO LIS WITH 200MLS OF DARK BROWN/BLACK GASTRIC CONTENTS REMOVED. PT'S AGUILAR IS PATENT AND DRAINED 400MLS OF TERESE URINE. TMAX THIS SHIFT WAS 100.6. NO BM THIS SHIFT BUT PT DID HAVE A SMEAR. COOLING BLANKET PLACED ON THE PT TO HELP KEEP TEMP BELOW 37c PER ICU PROVIDER. WILL CONTINUE TO MONITOR UNTIL REPORT IS GIVEN TO ONCOMING RN.
--- NOTE | 2024-09-10 21:07 | NUR ---
ASSUMPTION OF CARE: RECEIVED REPORT FROM CYNDI FUNES AT 1915. PT INTUBATED AND SEDATED. PROPOFOL CURRENTLY BEING TITRATED DOWN, INFUSING AT 25 MCG/KG/MIN WITH FENTANYL INFUSING AT 35 MCG/HR. PT UNRESPONSIVE, HAS NO WITHDRAWAL TO PAINFUL/VERBAL STIMULI. PUPILS PINPOINT AND FIXED. NO COUGH/GAG OR SWALLOW NOTED. PT HAS MINIMAL CONTINUAL SHAKING NOTED AT TIMES. VENT SETTINGS AC/VC 22/600/5.0/30% FIO2. SPO2 MID 90'S. LUNGS DIMINISHED T/O. RR 22. ETCO2 21. CONCHE LOADER AND UNLOADER IN PLACE, SR WITH HR 70'S. MAP >65, PRESSORS REMAIN ON SB SINCE THIS AM. TEMP AGUILAR PATENT AND DRAINING TO GRAVITY, TERESE COLORED URINE. NO BM YET. COOLING BLANKET IN PLACE, TEMP CURRENTLY 99.2. OGT SET TO LIS, DRAINING DARK LIQUID. CENTRAL LINE TO RIJ, PATENT. PIVS INTACT. BED LOW AND LOCKED.
[2024-09-10] MEDS ORDERED: Acetaminophen 160MG / 5ML 10.15 UDC PT PRN (23:15)
[2024-09-11] VITALS (51 sets, daily range): BP systolic 93–177; BP diastolic 64–119
[2024-09-11] MEDS ORDERED: Pantoprazole Sodium 40 MG Injection IV SCH (02:00)
[2024-09-11 04:42] LABS: BASOPHILS ABSOLUTE AUTO 0.01 K/mm3 (0.00-0.23); BASOPHILS PERCENT AUTO 0 % (0-2); EOSINOPHILS PERCENT AUTO 0 % (0-6); Hematocrit 38.4 % (37.0-53.0); Hemoglobin 13.4 g/dL (13.5-17.5); IMMATURE GRAN ABSOLUTE AUTO 0.17 K/mm3 (0.00-0.10); IMMATURE GRAN PERCENT AUTO 1 % (0-1); LYMPHOCYTES ABSOLUTE AUTO 0.81 K/mm3 (0.84-5.20); LYMPHOCYTES PERCENT AUTO 6 % (21-46); MONOCYTES ABSOLUTE AUTO 0.64 K/mm3 (0.16-1.47); MONOCYTES PERCENT AUTO 5 % (4-13); Mean Corpuscular HGB 33.8 pg (26.0-34.0); Mean Corpuscular HGB Conc 34.9 g/dL (31.5-36.5); Mean Corpuscular Volume 97 fL (80-100); Mean Platelet Volume 11.5 fL (9.1-12.4); NEUTROPHILS ABSOLUTE AUTO 11.79 K/mm3 (1.96-9.15); NEUTROPHILS PERCENT AUTO 88 % (41-73); NRBC ABSOLUTE 0.02 K/mm3 (0.00-0.02); NRBC Auto 0.1 /100 WBC (0.0-0.2); Platelet Count 94 K/mm3 (150-400); RDW Coefficient Variation 13.5 % (11.7-14.2); RDW Standard Deviation 48.5 fL (35.1-46.3); Red Blood Cell Count 3.97 M/mm3 (4.30-5.90); White Blood Cell Count 13.42 K/mm3 (4.00-11.30)
--- NOTE | 2024-09-11 05:09 | NUR ---
SHIFT SUMMARY: NO ACUTE CHANGES OVERNIGHT. PT REMAINS INTUBATED AND SEDATED. ATTEMPTED TO TITRATE PROPOFOL DOWN T/O THE NIGHT. PT BECAME VERY TACHYPNEIC AND NON COMPLIANT WITH THE VENTILATOR. PROPOFOL TURNED BACK UP TO 35 MCG/KG/MIN. FENTANYL GTT AT 25 MCG/HR. NEURO STATUS REMAINS UNCHANGED THIS SHIFT. PUPILS FIXED AND PINPOINT. PT HAS UPWARD GAZE. NO RESPONSE TO PAIN OR VERBAL STIMULI. LUNGS DIM. VENT SETTINGS AC/VC 22/600/5.0/35%. ETCO2 20-22. RR 22. SPO2 90-94%. CYCLE MANAGER IN PLACE, SR WITH HR 70'S. SBP 90-100. MAP CONTINUES TO BE >65. OGT SET TO LIS, PUTTING OUT MODERATE AMOUNTS OF DARK OUTPUT. NO SECRETIONS NOTED FROM ET TUBE. AGUILAR PATENT AND DRAINING TO GRAVITY. TEMP REMAINS ELEVATED AROUND 100.6 DESPITE COOLING BLANKET AND PRN TYLENOL. NO BM THIS SHIFT. CENTRAL LINE TO RIJ, PATENT AND INFUSING. PIVS INTACT AND SALINE LOCKED. BED LOW AND LOCKED.
[2024-09-11 05:24] LABS: Magnesium, Blood 2.1 mg/dL (1.6-2.4)
[2024-09-11 05:49] LABS: Albumin/Globulin Ratio 0.9 (0.8-1.8); Bilirubin, Total 1.7 mg/dL (0.1-1.0); Creatinine, Blood 1.92 mg/dL (0.60-1.20); Globulin, Blood 3.5 g/dL (2.2-4.0); Potassium, Blood 4.1 mmol/L (3.5-5.5); Total Protein, Blood 6.5 g/dL (6.4-8.2)
[2024-09-11] MEDS ORDERED: CefTRIAXone Sodium 1,000 MG in NS 100 ML IV SCH (06:00)
--- NOTE | 2024-09-11 08:00 | NUR ---
ASSUME CARE: BEDSIDE REPORT RECIEVED FROM GENOVEVA FUNES. PT INTUBATED AND SEDATED, RASS -5, CPOT 0. PROPOFOL GTT AT 35 MCG/KG/MIN, FENTANYL GTT AT 25 MCG/HR, LEVO ON SB. PT HAS SINCE BEEN TITRATED OFF PROPOFOL AND FENTANYL PER DR. PEREZ, RASS -5. PT HAS HAD NO MOVEMENT AND NO RESPONSE TO PAINFUL STIMULI. PT HAS UPWARD GAZE. OG TUBE PATENT, TURNED OFF INTERMITTENT SUCTION. SPO2>90% ON VENT, SEE RT NOTES FOR VENT SETTINGS. SBP 120s, MAP>65. MONITOR SHOWS SINUS RYTHM, RATE 70s. AGUILAR PATENT DRAINING TO GRAVITY. TMAX 99.6 THIS SHIFT, COOLING BLANKET ON FOR TTM. WILL UPDATE NEEDED.
[2024-09-11 09:23] LABS: Base Excess Venous -4.1 mmol/L; PCO2 Venous 27.4 mmHg (38-42); pH Blood Venous 7.46 (7.34-7.37)
[2024-09-11] MEDS ORDERED: Lactulose 20 GM/30 ML UDC PO PRN (09:25)
[2024-09-11] MEDS ORDERED: Docusate Sodium 100 MG UDC PT PRN (11:40)
[2024-09-11] MEDS ORDERED: Magnesium Hydroxide Conc 10 ML UDC PT PRN (11:40)
--- NOTE | 2024-09-11 15:30 | NUR ---
Spoke to pt's brother Ari by phone. He states he is the only living relative for the patient. He states there is a son, but they are completely estranged, completely cut off with no communication. Ari states his brother "Did this before," but not as "severe." We discussed pt's hospitalization from 04/15/24 - 05/21/24 in which he was intubated due to severe alcohol withdrawal. Intubated on 04/15 and extubated on 05/21. Ari asks if this is the same as last time, but it likely isn't given the unknown amount of time he was down with no CPR or interventions. Ari v/u regarding EEG results. He is hesitant to change pt's code status, states it makes him "feel weird" to talk about it, asks if we can talk about it again tomorrow. I told him "Of course we can." Ari requests another update tomorrow. He states he lives in [facility], and can make it here in a day if he needs to.
--- NOTE | 2024-09-11 18:03 | NUR ---
SHIFT SUMMARY PT REMAINS INTUBATED AND SEDATED c PROPOFOL AND FENTANYL, UNRESPONSIVE DURING SEDATION VACATION, DOES NOT WITHDRAW TO NOXIOUS STIMULI. NO MOVEMENT OF EXTREMITIES. SEE RT CHARTING FOR VENT SETTINGS. OGT WITH VHP @ GOAL OF 10ML/HR. INITIALLY HAD A TEMP OF 99.9 [address] IN [address], NOW NORMOTHERMIC c GOAL TEMP <99.0 WITH COOLING BLANKET OFF. TEMP PROBE AGUILAR CATHETER DRAINING TERESE URINE. NO BM TODAY. NO SIGNIFICANT ACUTE CHANGES TODAY.
--- NOTE | 2024-09-11 20:00 | NUR ---
ASSUMPTION OF CARE: RECEIVED REPORT FROM SELMA FUNES AT 1900. PT INTUBATED AND SEDATED ON 25 MCG/KG/MIN OF PROPOFOL AND 75 MCG/HR OF FENTANYL. PT UNRESPONSIVE, DOES NOT RESPOND TO VERBAL OR PAINFUL STIMULI. PUPILS PINPOINT AND FIXED. NO COUGH/GAG/SWALLOW NOTED AT TIME OF ASSESSMENT. UPWARD GAZE NOTED. VENT SETTINGS AC/VC 18/550/5.0/35%. SPO2 MID 90'S. LUNGS CLEAR/DIM. PIPE SMOKER MACHINE OPERATOR IN PLACE, SR WITH HR 70'S. SBP 140'S WITH MAP >65. CENTRAL LINE TO RIJ PATENT AND INFUSING, DRESSING C/D/I. PIVS INTACT AND SALINE LOCKED. TUBE FEED, VHP AT 10 ML/HR THROUGH OGT. AGUILAR PATENT AND DRAINING TO GRAVITY. PT AFEBRILE. NO BM YET. BED LOW AND LOCKED.
[2024-09-12] VITALS (45 sets, daily range): BP systolic 104–150; BP diastolic 61–86
[2024-09-12 04:45] LABS: Bun/Creatinine Ratio 16.7 (12.0-20.0); Calcium, Blood 8.1 mg/dL (8.5-10.1); Creatinine, Blood 2.15 mg/dL (0.60-1.20); Magnesium, Blood 2.3 mg/dL (1.6-2.4); Phosphorus, Blood 4.7 mg/dL (2.5-4.9); Potassium, Blood 3.7 mmol/L (3.5-5.5)
--- NOTE | 2024-09-12 05:44 | NUR ---
SHIFT SUMMARY: NO ACUTE CHANGES OVERNIGHT. REMAINS INTUBATED AND SEDATED. PROPOFOL AT 25 MCG/KG/MIN WITH FENTANYL AN ADJUNCT AT 75 MCG/HR. NEURO STATUS UNCHANGED SINCE INITIAL ASSESMENT. VENT SETTINGS UNCHANGED, ETCO2 20-23, RR 18-22. SPO2 MID TO HIGH 90'S. PT REMAINS IN SR WITH PAC'S/PVC'S. HR 60'S-70'S. SBP 107-150'S. MODERATE SECRETIONS NOTED FROM ORAL/ET TUBE. TUBE FEED REMAINS AT 10 ML/HR THROUGH OGT. AGUILAR PATENT AND DRAINING TO GRAVITY. AFEBRILE T/O THE SHIFT, NO BM. CENTRAL LINE PATENT. PIV'S INTACT. BED LOW AND LOCKED, CALL LIGHT IN REACH.
--- NOTE | 2024-09-12 07:55 | NUR ---
SHIFT ASSESSMENT ASSUMED CARE OF PT @ 0700, BEDSIDE REPORT RECEIVED FROM MARIN TOMAS. PT INTUBATED AND SEDATED. VENT SETTINGS AC-18/550/35/5 c SATS >90%. TITRATING PROPOFOL AND FENTANYL DOWN CURRENTLY FOR SED VACATION, RASS CURRENTLY -4. MEDICATIONS INFUSING VIA CENTRAL LINE. PT UNRESPONSIVE, DOES NOT WITHDRAW FROM NOXIOUS STIMULI, PUPILS SMALL WITH UPWARD GAZE TO LEFT, NO GAG OR SWALLOW BUT DOES COUGH. SECRETIONS THICK AND BROWN. OGT PATENT c TF @ GOAL, NO BM. TEMP PROBE AGUILAR PATENT DRAINING YELLOW URINE WITH SEDIMENT, AFEBRILE.
[2024-09-12] MEDS ORDERED: Enoxaparin 40 MG/0.4 ML SYR SC SCH (09:00)
[2024-09-12 09:20] LABS: BASOPHILS ABSOLUTE AUTO 0.02 K/mm3 (0.00-0.23); BASOPHILS PERCENT AUTO 0 % (0-2); EOSINOPHILS ABSOLUTE AUTO 0.01 K/mm3 (0.00-0.68); EOSINOPHILS PERCENT AUTO 0 % (0-6); Hematocrit 36.9 % (37.0-53.0); Hemoglobin 12.6 g/dL (13.5-17.5); IMMATURE GRAN ABSOLUTE AUTO 0.11 K/mm3 (0.00-0.10); IMMATURE GRAN PERCENT AUTO 1 % (0-1); LYMPHOCYTES ABSOLUTE AUTO 1.05 K/mm3 (0.84-5.20); LYMPHOCYTES PERCENT AUTO 8 % (21-46); MONOCYTES ABSOLUTE AUTO 1.05 K/mm3 (0.16-1.47); MONOCYTES PERCENT AUTO 8 % (4-13); Mean Corpuscular HGB Conc 34.1 g/dL (31.5-36.5); Mean Corpuscular Volume 100 fL (80-100); Mean Platelet Volume 11.9 fL (9.1-12.4); NEUTROPHILS ABSOLUTE AUTO 11.83 K/mm3 (1.96-9.15); NEUTROPHILS PERCENT AUTO 84 % (41-73); NRBC ABSOLUTE 0.03 K/mm3 (0.00-0.02); NRBC Auto 0.2 /100 WBC (0.0-0.2); Platelet Count 89 K/mm3 (150-400); RDW Standard Deviation 51.4 fL (35.1-46.3); Red Blood Cell Count 3.71 M/mm3 (4.30-5.90); White Blood Cell Count 14.07 K/mm3 (4.00-11.30)
--- NOTE | 2024-09-12 17:03 | NUR ---
Spoke to pt's brother Ari mcknigth, he is definitely planning now to be here this Monday. He states he isn't ready to change code status, but does say if his brothers heart stops or any other issue arises to call him right away, and he'll "make decisions." Informed him the patient remains unresponsive even off sedation, and he said he needs to be here to make any decison. Bedside RN aware.
--- NOTE | 2024-09-12 19:41 | NUR ---
SHIFT SUMMARY PT REMAINS INTUBATED & SEDATED WITH FENTANYL ONLY FOR VENT COMPLIANCE DUE TO TACHYPNEA. OFF OF PROPOFOL & FENTANYL SINCE 0900. FENTANYL BACK ON @ 1650. DOES NOT WITHDRAW TO NOXIOUS STIMULI, NO GAG, INTERMITTENTLY COUGHS WITH SUCTION. CONTINUES TO HAVE UPWARD GAZE, PUPILS SLOW TO RESPOND. NO VENT CHANGES. OGT WITH TF @ GOAL. TEMP PROBE AGUILAR DRAINING TERESE URINE WITH SEDIMENT, AFEBRILE. NO BM. NO ACUTE CHANGES THIS SHIFT.
--- NOTE | 2024-09-12 21:21 | NUR ---
ASSUMPTION OF CARE/ASSESSMENT: ASSUMED CARE OF PT AT 1900; BEDSIDE SHIFT REPORT RECIEVED FROM SELMA RN. PT CURRENTLY INTUBATED AND UNRESPONSIVE. CURRENT VENT SETTINGS ARE AC/VC 18/550/5/35%, SPO2 90<, AND TACHYPNEIC WITH RR 26-28. FENTANYL @ 50 MCG/HR FOR VENT COMPLIANCE. RAAS -4, NO RESPONSE TO PAIN, NO PURPOSEFUL MOVEMENTS NOTED AND PUPILS PERRLA WITH AN UPWARD, SLIGHT LEFT GAZE; YELLOW TINT TO SCLERA NOTED. NO GAG/SWALLOW NOTED DURING ORAL CARE, WILL COUGH WITH INLINE SUCTION OR REPOSITIONING. SR ON MONITOR, HR 60-70'S, SBP 140'S. OGT PATANT @ 65 CM, VHP INFUSING @ 10 MLS/HR (GOAL). TEMP AGUILAR PATENT AND DRAINING TO GRAVITY; LOW GRADE FEVER NOTED. SKIN OVERALL INTACT WITH BRUISING NOTED. PIV X 3 THAT ARE PATENT, RIJ INFUSING FENTANYL. BED LOWERED, CALL LIGHT IN REACH.
[2024-09-13] VITALS (43 sets, daily range): BP systolic 148–178; BP diastolic 75–92
--- NOTE | 2024-09-13 06:24 | NUR ---
SHIFT SUMMARY: NO ACUTE CHANGES OVERNIGHT; VSS. NEURO STATUS REMAINS UNCHANGED SINCE PREVIOUS NOT. MORE JERKING MOVEMENTS INTERMITTEN THROUGHOUT THE NIGHT; 1 PUSH OF VERSED WITH MINIMAL EFFECT. FENTANYL TITRATED UP TO 75 MCG/HR TO HELP WITH VENT COMPLIANCE AND MANAGE TACHYPNEA. BED BATH COMPLETED THIS SHIFT. WILL REPORT OFF TO ONCOMING RN.
--- NOTE | 2024-09-13 13:31 | NUR ---
TRANSFER OF CARE PT INTUBATED, NOT SEDATED, NOT RESPONSIVE. NO PURPOSFUL MOVEMENTS NOTED. NRS ON MONITOR, HR 80'S. MAPS >65. VENT SETTINGS AC/VC 18/550/5/35%. L/S CLEAR. AGUILAR DRAINING TO GRAVITY. TF RUNNING AT GOAL OF 10ML/HR. REPORT GIVEN TO MARIN CULP.
--- NOTE | 2024-09-13 19:17 | NUR ---
Summary. Pt condition unchanged this shift. Awaiting family arrival to further plan of care. See chart for further details.
[2024-09-13] MEDS ORDERED: Scopolamine Hydrobromide Patch TOP ONE (20:20)
--- NOTE | 2024-09-13 21:40 | NUR ---
BELONGINGS: I REMOVED PT'S RIGHT PINKY FINGER RING, PUT IT IN A LABELED CLEAR DENTURE CUP, AND PUT THAT IN THE BELONGINGS BAG THAT HAS THE PT'S SHOES IN IT.
--- NOTE | 2024-09-13 22:52 | NUR ---
WOMAN NAMED SHEA CALLED, SAID SHE WAS HIS NEIGHBOR AND WAS ASKING WHAT SHE SHOULD DO ABOUT HIS HOUSE RE: LOCK IT, CLOSE WINDOWS, ETC.?. SHE IS NOT ON THE CONTACT LIST SO SHE SAID SHE WOULD DO WAS WHAT NECESSARY AND THAT THE HOUSE CELESTIN IS HIDDEN BY THE WATER HEATER NEXT TO THE HOUSE.
[2024-09-14] VITALS (14 sets, daily range): BP systolic 126–165; BP diastolic 69–90
[2024-09-14 05:04] LABS: Albumin, Blood 3.1 g/dL (3.4-5.0); Anion Gap 12 mmol/L (3-11); Blood Urea Nitrogen 45 mg/dL (8-24); Bun/Creatinine Ratio 29.4 (12.0-20.0); CO2, Blood 25 mmol/L (21-32); Calcium, Blood 8.8 mg/dL (8.5-10.1); Chloride, Blood 113 mmol/L (98-108); Creatinine, Blood 1.53 mg/dL (0.60-1.20); Glomerular Filtration Rate 50 (60-); Glucose, Blood 129 mg/dL (70-99); Phosphorus, Blood 3.9 mg/dL (2.5-4.9); Potassium, Blood 3.7 mmol/L (3.5-5.5); Sodium, Blood 146 mmol/L (136-145)
--- NOTE | 2024-09-14 06:30 | NUR ---
SHIFT SUMMARY: PT REMAINS UNRESPONSIVE AND UNAROUSABLE WITH DEVIATED GAZE AND THICK COPIOUS SECRETIONS. SCOPOLAMINE PATCH ON RIGHT. VENT SETTINGS CHANGED FROM AC/VC TO AC/PC BY RESP THERAPY. ITIME 0.83, V500, P8, PI 14, 40%.
[2024-09-14] MEDS ORDERED: Atropine Sulfate 1% Opth Soln 2ML BTL SL PRN (16:55)
[2024-09-14] MEDS ORDERED: Morphine Sulfate 20 MG/1ML 1 ML Oral Syringe SL PRN (17:00)
[2024-09-14] MEDS ORDERED: Morphine Sulfate 10 MG/ML 1MLSYR IV PRN (17:00)
[2024-09-14] MEDS ORDERED: Haloperidol Lactate Inj. 5 MG/ML Injection IV PRN (17:00)
[2024-09-14] MEDS ORDERED: Promethazine HCl 25 MG Supp PR PRN (17:00)
[2024-09-14] MEDS ORDERED: LORazepam 2 MG/ML 1ML Injection IV PRN (17:00)
[2024-09-14] MEDS ORDERED: Morphine Sulfate 10 MG/ML 1MLSYR IV ONE (18:00)
--- NOTE | 2024-09-14 18:08 | NUR ---
SHIFT SUMMARY PT WAS EXTUBATED TO COMFORT CARE AT 1745 WITH FAMILY AT BEDSIDE. OPA PLACED FOR COMFORT. ALL PAT BELONGINGS GIVEN TO FAMILY. LIST PROVIDED TO FAMILY. SEE CHART FOR FURTHER DETAILS.
--- NOTE | 2024-09-15 17:22 | NUR ---
SHIFT SUMMARY PT UNRESPONSIVE, OPA AND NPA IN PLACE, SATS IN THE 80-90'S, RR 10-20'S, HR 60-80'S. NT SUCTION DONE T/O SHIFT. MEDICATED PER EMAR FOR COMFORT. FENTANYL GTT 150 MCG/MIN. FAMILY AT BEDSIDE EARLIER THIS SHIFT, REQUESTED PHONE CALL W/ UPDATE FOR CHANGES.
--- NOTE | 2024-09-15 19:41 | NUR ---
Assumed care of pt at 1900. PT resting on left side- appears comfortable. Fentanyl gtt @150mcg/hr. PT has opa and npa to r. nare. O2 sats 90s. HR 88s- sinus. Collins cath in place- patent and draining to gravity. No distress or discomfort observed. Plan of care ongoing.
--- NOTE | 2024-09-16 05:26 | NUR ---
End of shift summary. Pt condition remains unchanged. NPA/OPA removed for pt comfort. PT continues to have copious oral secretions. Medicated t/o shift per emar for comfort. Plan of care ongoing.
--- NOTE | 2024-09-16 07:06 | NUR ---
ASSUMED CARE OF PATIENT AT APPROXIMATELY 0700. REPORT RECEIVED FROM MARIN PRITCHARD. PT RESTING IN BED, SALINE LOCKED. TACHYPNEIC, RASPY BREATHING. MILDY DIAPHORETIC. NO ACUTE NEEDS IDENTIFED AT THIS TIME. SEE SHIFT ASSESSMENT FOR FULL DETAILS.
--- NOTE | 2024-09-16 09:09 | NUR ---
PT PRONOUNCED AT 0816 BY THIS RN, SECONDARY ASSESSMENT BY ABDULAZIZ CADE, MARIN. FAMILY NOTIFIED. BROTHER REQUESTS [facility]. PIV'S AND AGUILAR CATH REMOVED. CARE OF BODY ASSUMED BY GENOVEVA PARRISH FROM [facility] DEPARTED ICU AT 0901.
== END 2024-09-16 08:16 ==
LOC: ER 07:43 → ICUE 10:32
PROVIDERS: Internal Medicine Critical Care Medicine; Student in an Organized Health Care Education/Training Program; ADMIT Family Medicine
PROC: 0BH17EZ Insertion of Endotracheal Airway into Trachea, Via Natural or Artificial Opening (ICD-10-PCS; principal; 2024-09-10)
PROC: 5A1945Z Respiratory Ventilation, 24-96 Consecutive Hours (ICD-10-PCS; 2024-09-10)
PROC: 5A12012 Performance of Cardiac Output, Single, Manual (ICD-10-PCS; 2024-09-10)
PROC: 5A2204Z Restoration of Cardiac Rhythm, Single (ICD-10-PCS; 2024-09-10)
PROC: 3E033XZ Introduction of Vasopressor into Peripheral Vein, Percutaneous Approach (ICD-10-PCS; 2024-09-10)
PROC: 0D9670Z Drainage of Stomach with Drainage Device, Via Natural or Artificial Opening (ICD-10-PCS; 2024-09-10)
PROC: 05HM33Z Insertion of Infusion Device into Right Internal Jugular Vein, Percutaneous Approach (ICD-10-PCS; 2024-09-10)
PROC: B543ZZA Ultrasonography of Right Jugular Veins, Guidance (ICD-10-PCS; 2024-09-10)
PROC: 3E03329 Introduction of Other Anti-infective into Peripheral Vein, Percutaneous Approach (ICD-10-PCS; 2024-09-10)
DX: I46.9 Cardiac arrest, cause unspecified (principal); I85.11 Secondary esophageal varices with bleeding; I21.4 Non-ST elevation (NSTEMI) myocardial infarction; J96.01 Acute respiratory failure with hypoxia; J96.02 Acute respiratory failure with hypercapnia; Z66 Do not resuscitate; Z51.5 Encounter for palliative care; R40.2A Nontraumatic coma due to underlying condition; G93.1 Anoxic brain damage, not elsewhere classified; I50.22 Chronic systolic (congestive) heart failure; N39.0 Urinary tract infection, site not specified; E87.21 Acute metabolic acidosis; F10.239 Alcohol dependence with withdrawal, unspecified; E72.20 Disorder of urea cycle metabolism, unspecified; N17.9 Acute kidney failure, unspecified; I42.0 Dilated cardiomyopathy; I67.89 Other cerebrovascular disease; K70.30 Alcoholic cirrhosis of liver without ascites; I48.20 Chronic atrial fibrillation, unspecified; G25.3 Myoclonus; I86.4 Gastric varices; R57.0 Cardiogenic shock; I11.0 Hypertensive heart disease with heart failure; B18.2 Chronic viral hepatitis C; E87.6 Hypokalemia; Z87.891 Personal history of nicotine dependence; Z88.8 Allergy status to other drugs, medicaments and biological substances; Z79.01 Long term (current) use of anticoagulants; Z79.899 Other long term (current) drug therapy; Z86.718 Personal history of other venous thrombosis and embolism; Z86.711 Personal history of pulmonary embolism
CPT/HCPCS: 31500; 31720; 36415; 36556; 36600; 51702; 70450; 71045; 71260; 80047; 80048; 80053; 80069; 80320; 81001; 82140; 82803; 83605; 83735; 83880; 84100; 84484; 85014; 85025; 85610; 85730; 87040; 87086; 92950; 93005; 93010; 94002; 94003; 94644; 94645; 94664; 94762; 95819; 96361-59; 96365-59; 96375-59; 99291-25; 99292; A9270; C1751; C8929; G0480; J0696; J1650; J2060; J2250; J2270; J2470; J2543; J2704; J2919; J3010; J3370; J3411; J3480; J7050; J7060; Q9957; Q9967